=== PATIENT | female | born 1970 | race Caucasian/White ===

== ENCOUNTER → 2017-11-07 | Outpatient (CLI) | payer OTHER ==
--- NOTE | 2017-11-07 14:49 | US ---
EXAMINATION TYPE: US venous doppler duplex LE LT DATE OF EXAM: 11/07/2017 1:55 PM COMPARISON: NONE CLINICAL HISTORY: M25.562 pain in left knee. Pain x 2 weeks, on Aspirin, No redness SIDE PERFORMED: Left TECHNIQUE: The lower extremity deep venous system is examined utilizing real time linear array sonog rui with graded compression, doppler sonography and color-flow sonography. VESSELS IMAGED: External Iliac Vein (EIV) Common Femoral Vein Deep Femoral Vein Greater Saphenous Vein * Femoral Vein Popliteal Vein Small Saphenous Vein * Proximal Calf Veins (* superficial vessels) Suboptimal exam due to patient body habitus Left Leg: Negative for DVT. Posterior left knee, nonvascular cystic appearing lesion seen with inte rnal echoes = 4.7 x 2.6 x 1.9 cm Grayscale, color doppler, spectral doppler imaging performed of the deep veins of the lower extremiti es. There is normal flow, compressibility, vascular waveforms. IMPRESSION: Slightly suboptimal exam secondary to patient body habitus, however there is no gross ev idence of deep venous thrombosis within the left lower extremity. Incidental note of a 4.7 cm slightl y complex popliteal cyst.
== END | disposition home or self-care (01) ==
LOC: RADUSWWP 12:45
PROVIDERS: ATTEND Family Medicine
DX: M25.562 Pain in left knee (principal)

== ENCOUNTER → 2018-03-26 | Outpatient (CLI) | payer OTHER ==
[2018-03-26 14:17] VITALS: BP 136/79; PULSE 95; TEMP 97.8; BMI 130.8
--- NOTE | 2018-03-26 15:18 | P.HPBAR ---
Bariatric H&P - History & Physicial H&P Date: 03/26/18 History & Physicial: Visit/CC: inital clinic visit Patient initial contact: Initial weight: Initial weight in pounds: Height: 5 ft 6.5 in Initial BMI: Last weight: Current weight: 373.1 kg Current weight in pounds: 822.54 Current BMI: 130.8 [place] body weight (based on NIH guidelines): 60.101 kg Excess body weight loss: The patient is a 48 year-old F who presents for Bariatric Assessment. Patient presents today as a new patient evaluation. She has suffered with her weight for the majority of her life. She actually was as heavy as 480. Currently weighs 373. She has lost 111 pounds over the last 14 months. She has done this with lifestyle modification and increased activity. Denies DVT or dysphagia. Patient has a history of diabetes and hypertension hypercholesterolemia and os or arthritis. Hemoglobin A1c recently 7.4. The patient sees Dr. Ervin from endocrinology. Went to the seminar this past Friday. Review of Systems The patient denies any acute changes in vision or hearing, no dysphagia or odynophagia, no chest pain or shortness of breath, no dysuria or hematuria, no headache, no runny nose, no rectal bleeding or melena, no unexplained weight loss Past Medical History Past Medical History: Diabetes Mellitus, Hypertension Additional Past Medical History / Comment(s): frequent uti's, renal insufficiency History of Any Multi-Drug Resistant Organisms: None Reported Past Surgical History: Orthopedic Surgery Additional Past Surgical History / Comment(s): LEFT LEG PLATES AND SCREWS Past Anesthesia/Blood Transfusion Reactions: Motion Sickness Past Psychological History: No Psychological Hx Reported Additional Psychological History / Comment(s): PT HAS 3 SONS LIVING WITH HER, 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 Smoking Status: Former smoker Past Alcohol Use History: None Reported Additional Past Alcohol Use History / Comment(s): started smoking at age 13, quit 27 years, smoked 2 ppd Past Drug Use History: None Reported - Past Family History Father Family Medical History: Cancer, Diabetes Mellitus, Hypertension Additional Family Medical History / Comment(s): colon cancer, smoked and was an alcoholic, brain sx forbenign tumors, and cabg Mother Family Medical History: Cancer, CVA/TIA, Diabetes Mellitus, Hypertension, Liver Disease Additional Family Medical History / Comment(s): heart problems, liver cancer and renal problems Surgical - Exam Vital Signs Temp Pulse BP 97.8 F 95 136/79 03/26/18 14:12 03/26/18 14:12 03/26/18 14:12 Physical exam: General: Well-developed, well-nourished HEENT: Normocephalic, sclerae nonicteric Abdomen: Nontender, nondistended Extremities: No edema Neuro: Alert and oriented Bariatric Assessment & Plan (1) Morbid obesity Narrative/Plan: 48-year-old female with morbid obesity and associated comorbidities. Options discussed in detail with the patient. Surgical risks and benefits of gastric bypass and sleeve gastrectomy reviewed. Patient remains interested in sleeve gastrectomy. The risks of bleeding, infection, stenosis, stricture, leak, abscess, fistula formation, peritonitis, poor weight loss, reflux, vomiting, conversion to an open procedure, aborting sleeve gastrectomy, [place], PE, DVT, and were discussed. The patient understands and wishes to proceed. Status: Acute Bariatric Checklist Checklist: Plan: Checklist: EGD: 1. Hiatal hernia: 2. H. Pylori: HgbA1c: Vitamin D: Smoking: Former smoker Primary care physician referral: dr ferraro Psychiatry clearance: Cardiology clearance: Sleep study: Diet journal: VTE risk score: VTE risk level: Rehab needs at discharge:
== END | disposition home or self-care (01) ==
LOC: BARWHC3 13:43
PROVIDERS: ATTEND Surgery
DX: E66.01 Morbid (severe) obesity due to excess calories (principal); E11.9 Type 2 diabetes mellitus without complications; I10 Essential (primary) hypertension; E78.00 Pure hypercholesterolemia, unspecified; Z98.890 Other specified postprocedural states; Z87.891 Personal history of nicotine dependence; Z68.45 Body mass index [BMI] 70 or greater, adult
CPT/HCPCS: 99211

== ENCOUNTER → 2018-04-06 | Outpatient (CLI) | payer OTHER ==
[2018-04-06 13:18] LABS: Cholesterol 118 mg/dL (<200); HDL Cholesterol 42 mg/dL (40-60); LDL Cholesterol,Calculated 49 mg/dL (0-99); Triglycerides 137 mg/dL (<150)
== END | disposition home or self-care (01) ==
LOC: LABWHC1 12:24
PROVIDERS: ATTEND Internal Medicine
DX: E78.5 Hyperlipidemia, unspecified (principal)
CPT/HCPCS: 36415; 80061

== ENCOUNTER → 2018-04-06 | Outpatient (CLI) | payer OTHER ==
[2018-04-06 08:57] VITALS: BMI 59.7
== END | disposition home or self-care (01) ==
LOC: BARWHC3 08:35
PROVIDERS: ATTEND Surgery
DX: E66.01 Morbid (severe) obesity due to excess calories (principal); Z68.43 Body mass index [BMI] 50.0-59.9, adult
CPT/HCPCS: 97804

== ENCOUNTER → 2018-04-17 | Day surgery (SDC) | payer OTHER ==
[2018-04-15 15:49] VITALS: BMI 60.2
[~2018-04-17] MED LIST: KETAMINE 10 MG/ML 20 ML VIAL ONE; LACTATED RINGERS 1,000 ML IV SCH; LIDOCAINE 1% 20 ML VIAL (10MG/ML) FOR IV START INTRADERMA PRN; LIDOCAINE 1% INJ 10MG/ML (20 ML MDV) ONE; MIDAZOLAM 2 MG/2 ML VIAL ONE; PROPOFOL 10 MG/ML 20 ML VIAL IV ONE; fentaNYL (PF) 50 MCG/ML 2 ML AMP ONE
[2018-04-17 07:09] LABS: Glucose,Whole Blood 146 mg/dL (75-99)
[2018-04-17 07:11] VITALS: TEMP 97.2
--- NOTE | 2018-04-17 07:45 | P.GSHP ---
History of Present Illness H&P Date: 04/17/18 Chief Complaint: GERD Patient today for upper endoscopy. She's been worked up for upcoming bariatric surgery. She has mild reflux at times. Denies dysphagia. He has cardiac testing next week in preparation for sleeve gastrectomy. Past Medical History Past Medical History: Diabetes Mellitus, Hypertension, Osteoarthritis (OA), Renal Disease Additional Past Medical History / Comment(s): frequent uti's, renal insufficiency, Hx of Dialysis, now 80% kidney function History of Any Multi-Drug Resistant Organisms: None Reported Past Surgical History: Orthopedic Surgery Additional Past Surgical History / Comment(s): LEFT LEG PLATES AND SCREWS; Jaw Surgery for TMJ Past Anesthesia/Blood Transfusion Reactions: Motion Sickness Smoking Status: Former smoker - Past Family History Father Family Medical History: Cancer, Diabetes Mellitus, Hypertension Additional Family Medical History / Comment(s): colon cancer, smoked and was an alcoholic, brain sx forbenign tumors, and cabg Mother Family Medical History: Cancer, CVA/TIA, Diabetes Mellitus, Hypertension, Liver Disease Additional Family Medical History / Comment(s): heart problems, liver cancer and renal problems Medications and Allergies Home Medications Medication Instructions Recorded Confirmed Type Ibuprofen [Motrin] 400 - 800 mg PO BID 01/25/15 04/17/18 History Simvastatin [Zocor] 20 mg PO HS #30 tab 01/27/15 04/17/18 Rx metFORMIN HCL [Glucophage] 1,000 mg PO BID 03/26/18 04/17/18 History Aspirin 81 mg PO DAILY 03/27/18 04/17/18 History Glimepiride [Amaryl] 4 mg PO BID 03/27/18 04/17/18 History Hydrochlorothiazide [Hydrodiuril] 25 mg PO DAILY 03/27/18 04/17/18 History Lisinopril [Prinivil] 40 mg PO DAILY 03/27/18 04/17/18 History Multivitamins, Thera [Multivitamin 1 tab PO DAILY 03/27/18 04/17/18 History (formulary)] Pioglitazone [Actos] 15 mg PO HS 03/27/18 04/17/18 History amLODIPine [Norvasc] 10 mg PO DAILY 03/27/18 04/17/18 History Allergies Allergy/AdvReac Type Severity Reaction Status Date / Time No Known Allergies Allergy Verified 04/15/18 15:42 Surgical - Exam Vital Signs Temp Pulse Resp BP Pulse Ox 97.2 F L 84 18 120/66 97 04/17/18 06:52 04/17/18 06:52 04/17/18 06:52 04/17/18 06:52 04/17/18 06:52 Physical exam: General: Well-developed, well-nourished HEENT: Normocephalic, sclerae nonicteric Abdomen: Nontender, nondistended Extremities: No edema Neuro: Alert and oriented Results - Labs Abnormal Lab Results - Last 24 Hours (Table) 04/17/18 Range/Units 07:04 POC Glucose (mg/dL) 146 H (75-99) mg/dL Assessment and Plan (1) GERD (gastroesophageal reflux disease) Narrative/Plan: Will proceed with upper endoscopy at this time Current Visit: Yes Status: Acute Code(s): K21.9 - GASTRO-ESOPHAGEAL REFLUX DISEASE WITHOUT ESOPHAGITIS SNOMED Code(s): 041096926
--- NOTE | 2018-04-17 07:57 | P.PCN ---
Date of Procedure: 04/17/18 Procedure(s) Performed: Preoperative Dx: GERD, presurgical Postoperative Dx: Gastritis with small erosions Procedure: EGD with Bx Anesthesia: Sedation Endoscopist: Dr. Parson Specimens: Antrum Endoscopic Procedure: The patient was on the endoscopy table in the left decubitus position. The Olympus gastroscope was inserted into the oropharynx and passed under direct visualization to the region of the third portion of the duodenum. From that point the scope was slowly withdrawn inspecting all surfaces carefully. There were no neoplastic inflammatory or polypoid lesions throughout the duodenum. The pylorus was widely patent. The stomach was carefully inspected. There was gastritis present with a small erosion in the prepyloric region. A biopsy was taken. The patient also had a small subcutaneous nodule that was soft and fleshy consistent with submucosal lipoma in the antral region. Measured less than 1 cm in size. A biopsy of the antrum took place to rule out H. pylori. Retroflexion revealed a normal hiatus. The esophagus was then carefully examined. There were no neoplastic inflammatory or polypoid lesions throughout the visualized esophagus. The patient was then taken to the recovery room in stable condition per anesthesia guidelines. Recommendations: Await biopsies results begin antiacid therapy.
[2018-04-17 08:10] VITALS: BP 111/60; PULSE 73; RESP 16
== END | disposition home or self-care (01) ==
LOC: ORWHC2ENDO 06:37
PROVIDERS: ATTEND Surgery
DX: K29.50 Unspecified chronic gastritis without bleeding (principal); K21.9 Gastro-esophageal reflux disease without esophagitis; E11.9 Type 2 diabetes mellitus without complications; E78.5 Hyperlipidemia, unspecified; K25.9 Gastric ulcer, unspecified as acute or chronic, without hemorrhage or perforation; I10 Essential (primary) hypertension; M19.90 Unspecified osteoarthritis, unspecified site; Z87.891 Personal history of nicotine dependence; Z82.49 Family history of ischemic heart disease and other diseases of the circulatory system; Z83.3 Family history of diabetes mellitus; Z79.84 Long term (current) use of oral hypoglycemic drugs; Z79.899 Other long term (current) drug therapy; Z79.82 Long term (current) use of aspirin; Z99.2 Dependence on renal dialysis; Z87.440 Personal history of urinary (tract) infections; Z79.1 Long term (current) use of non-steroidal anti-inflammatories (NSAID)
CPT/HCPCS: 81025; 88305; 88342; 43239; J2250; J2001; J3010; J2704

== ENCOUNTER → 2018-04-24 | Outpatient (CLI) | payer OTHER ==
[~2018-04-24] MED LIST changes: -KETAMINE 10 MG/ML 20 ML VIAL ONE; -LACTATED RINGERS 1,000 ML IV SCH; -LIDOCAINE 1% 20 ML VIAL (10MG/ML) FOR IV START INTRADERMA PRN; -LIDOCAINE 1% INJ 10MG/ML (20 ML MDV) ONE; -MIDAZOLAM 2 MG/2 ML VIAL ONE; -PROPOFOL 10 MG/ML 20 ML VIAL IV ONE; +REGADENOSON 0.4 MG/5 ML SYRINGE IV ONE; -fentaNYL (PF) 50 MCG/ML 2 ML AMP ONE
--- NOTE | 2018-04-24 12:17 | ECHOF ---
Referral Reason:Z01.818 Encounter for other preprocedural exam MEASUREMENTS -------- HEIGHT: 170.2 cm WEIGHT: 163.7 kg BP: RVIDd: 3.7 cm (< 3.3) IVSd: 1.3 cm (0.6 - 1.1) LVIDd: 4.6 cm (3.9 - 5.3) LVPWd: 1.3 cm (0.6 - 1.1) IVSs: 1.5 cm LVIDs: 2.9 cm LVPWs: 1.6 cm LAESV Index (A-L): 25.09 ml/m Ao Diam: 3.3 cm (2.0 - 3.7) AV Cusp: 2.3 cm (1.5 - 2.6) LA Diam: 4.1 cm (2.7 - 3.8) MV EXCURSION: 16.958 mm (> 18.000) MV EF SLOPE: 92 mm/s (70 - 150) EPSS: 0.2 cm MV E Emeterio: 0.78 m/s MV DecT: 218 ms MV A Emeterio: 0.69 m/s MV E/A Ratio: 1.12 RAP: 5.00 mmHg RVSP: 16.70 mmHg FINDINGS -------- Sinus rhythm. This was a technically adequate study. Morbid Obesity The left ventricular size is normal. There is mild concentric left ventricular hypertrophy. Overa ll left ventricular systolic function is normal with, an EF between 55 - 60 %. The right ventricle is normal in size. The left atrial size is normal. Normal LA size by volume 22+/-6 ml/m2. The right atrial size is normal. The aortic valve was not well visualized. The mitral valve is normal. Mild mitral regurgitation is present. Mild tricuspid regurgitation present. There is no evidence of pulmonary hypertension. The right v entricular systolic pressure, as measured by Doppler, is 16.70mmHg. The pulmonic valve was not well visualized. There is no pulmonic regurgitation present. The aortic root size is normal. There is no pericardial effusion. CONCLUSIONS -------- 1. Sinus rhythm. 2. This was a technically adequate study. 3. Morbid Obesity 4. The left ventricular size is normal. 5. There is mild concentric left ventricular hypertrophy. 6. Overall left ventricular systolic function is normal with, an EF between 55 - 60 %. 7. The left atrial size is normal. 8. The right atrial size is normal. 9. The aortic valve was not well visualized. 10. The mitral valve is normal. 11. Mild mitral regurgitation is present. 12. Mild tricuspid regurgitation present. 13. There is no evidence of pulmonary hypertension. 14. The pulmonic valve was not well visualized. 15. There is no pulmonic regurgitation present. 16. The aortic root size is normal. 17. There is no pericardial effusion. MASK LAYOUT DESIGNER: Mikala Miramontes RDCS
--- NOTE | 2018-04-24 12:49 | NM ---
EXAMINATION TYPE: NM stress lexiscan cardiolite DATE OF EXAM: 04/24/2018 COMPARISON: NONE HISTORY: Z01.818 TECHNIQUE: After the intravenous administration of 10.56 mCi Tc 99m Sestamibi - Cardiolite resting S PECT images acquired 65 minutes post injection. The patient received 0.4mg Lexiscan, 25.9 mCi Tc 99m Sestamibi - Stress images obtained [address] injection FINDINGS: Review of stress and rest SPECT images demonstrates no distinct perfusion abnormality. Gated analysi s shows normal wall motion with an estimated left ventricular ejection fraction of 69 %. IMPRESSION: No scintigraphic evidence for reversible ischemia. Consider echocardiographic correlation for elevate d ejection fraction.
--- NOTE | 2018-04-24 15:35 | EST ---
EXERCISE STRESS DATE OF SERVICE: 04/24/2018 AGE: 48 SEX: Female HT: 5'8" WT: 361 PROTOCOL: Lexiscan Cardiolite STAGE: DURATION OF EXERCISE: HEART RATE REST: 66 BLOOD PRESSURE REST: 146/77 MAXIMUM HEART RATE ACHIEVED: 91 MAXIMUM BLOOD PRESSURE: 181/73 85% MPHR: 145 100% MPHR: 170 METS: INDICATIONS: Abnormal EKG. CLINICAL INFORMATION: Baseline rhythm is sinus mechanism, rate 66, normal axis and intervals, normal electrocardiogram. Baseline blood pressure 146/77 mmHg. Patient received an injection of Lexiscan. Electrocardiographic monitoring revealed rare PVCs. There was no evidence of diagnostic ischemic ST deviation. Cardiolite was injected per protocol. CONCLUSION: 1. Nondiagnostic electrocardiograph stress testing. 2. Nuclear images will be reported separately. MMODL / IJN: [id number] /
== END | disposition home or self-care (01) ==
LOC: RADNMMAIN 07:35
PROVIDERS: ATTEND Family Medicine
DX: Z01.818 Encounter for other preprocedural examination (principal); I08.1 Rheumatic disorders of both mitral and tricuspid valves; E66.01 Morbid (severe) obesity due to excess calories; J30.2 Other seasonal allergic rhinitis; Z88.8 Allergy status to other drugs, medicaments and biological substances
CPT/HCPCS: 93017; 93306; 78452; A9500; J2785

== ENCOUNTER → 2018-05-14 | Outpatient (CLI) | payer OTHER ==
[2018-05-14 15:12] VITALS: BP 121/70; PULSE 89; RESP 20; TEMP 97.9; BMI 59.1
--- NOTE | 2018-05-14 16:45 | P.BASOAP ---
Subjective Progress Note Date: 05/14/18 Principal diagnosis: Morbid obesity Patient returns after recent upper endoscopy. Upper endoscopy revealed gastritis with small erosions. Doing well at this time. Remains interested in proceeding with sleeve gastrectomy. Objective - Vital Signs Vital signs: Vital Signs Temp 97.9 F 05/14/18 15:01 Pulse 89 05/14/18 15:01 Resp 20 05/14/18 15:01 BP 121/70 05/14/18 15:01 Pulse Ox Intake & Output 05/13/18 05/14/18 05/14/18 18:59 06:59 18:59 Weight 168.827 kg - Exam Abdomen: Soft, nontender, nondistended Assessment/Plan (1) Morbid obesity Narrative/Plan: Will proceed with sleeve gastrectomy. Continue antiacids for now. The risks of bleeding, infection, stenosis, stricture, leak, abscess, fistula formation, peritonitis, poor weight loss, reflux, vomiting, conversion to an open procedure , aborting sleeve gastrectomy, [place], PE, DVT, and were discussed. The patient understands and wishes to proceed. Plan: Date: 05/14/18 Initial Weight: 169.598 kg Initial BMI: 59.4 Current Weight: 168.827 kg Current BMI: 59.1 Type of Surgery: Vertical Sleeve Gastrectomy Total Volume in Band: Previous Volume: Volume Removed: Volume Added: Band Size:
== END | disposition home or self-care (01) ==
LOC: BARWHC3 14:46
PROVIDERS: ATTEND Surgery
DX: E66.01 Morbid (severe) obesity due to excess calories (principal); K29.00 Acute gastritis without bleeding; Z68.43 Body mass index [BMI] 50.0-59.9, adult
CPT/HCPCS: 99211

== ENCOUNTER → 2018-05-14 | Outpatient (CLI) | payer OTHER ==
[2018-05-15 04:24] LABS: Hemoglobin A1C 6.6 % (4.0-6.0)
== END ==
LOC: LABWHC1 16:01
PROVIDERS: ATTEND Internal Medicine Endocrinology, Diabetes & Metabolism
DX: E11.65 Type 2 diabetes mellitus with hyperglycemia (principal)
CPT/HCPCS: 36415; 82043; 82570; 83036

== ENCOUNTER → 2018-06-17 | Outpatient (CLI) | payer OTHER ==
[2018-06-17 13:24] LABS: ALT 37 U/L (9-52); AST 26 U/L (14-36); Albumin 4.1 g/dL (3.5-5.0); Alkaline Phosphatase 62 U/L (38-126); Anion Gap 13 mmol/L; Blood Urea Nitrogen 21 mg/dL (7-17); Calcium 10.3 mg/dL (8.4-10.2); Carbon Dioxide 29 mmol/L (22-30); Chloride 101 mmol/L (98-107); Glucose 148 mg/dL (74-99); Sodium 143 mmol/L (137-145); Total Bilirubin 0.5 mg/dL (0.2-1.3); Total Protein 7.5 g/dL (6.3-8.2)
[2018-06-17 13:35] LABS: Basophils % (A) 0 %; Eosinophils # (A) 0.2 k/uL (0-0.7); Eosinophils % (A) 3 %; HCT 39.3 % (34.0-46.0); HGB 12.4 gm/dL (11.4-16.0); Lymphocytes # (A) 2.2 k/uL (1.0-4.8); Lymphocytes % (A) 30 %; MCH 28.8 pg (25.0-35.0); MCHC 31.6 g/dL (31.0-37.0); MCV 91.2 fL (80.0-100.0); Mean Platelet Volume 6.6; Monocytes # (A) 0.4 k/uL (0-1.0); Monocytes % (A) 5 %; Neutrophils # (A) 4.2 k/uL (1.3-7.7); Neutrophils % (A) 59 %; Platelet Count 393 k/uL (150-450); RBC 4.31 m/uL (3.80-5.40); RDW 13.9 % (11.5-15.5); WBC 7.2 k/uL (3.8-10.6)
== END | disposition home or self-care (01) ==
LOC: LABPAT 11:30
PROVIDERS: ATTEND Surgery
DX: Z01.818 Encounter for other preprocedural examination (principal); Z01.812 Encounter for preprocedural laboratory examination
CPT/HCPCS: 36415; 80053; 85025; 93005

== ENCOUNTER 2018-07-06 09:51 | Inpatient (IN) | payer OTHER ==
[~2018-07-06 09:51] MED LIST changes: +DEXAMETHASONE SOD PHOSPHATE 10 MG/ML 1 ML VIAL IV ONE; +ENOXAPARIN 40 MG/0.4 ML SYRINGE SQ ONE; +LIDOCAINE 1% 20 ML VIAL (10MG/ML) FOR IV START INTRADERMA PRN; +ONDANSETRON 4 MG/2 ML VIAL IVP ONE; -REGADENOSON 0.4 MG/5 ML SYRINGE IV ONE; +SCOPOLAMINE 1.5MG/72HR PATCH TRANSDERM ONE
[2018-07-06] MEDS ORDERED: LACTATED RINGERS 1,000 ML IV ONE ×2 (10:32→13:07)
[2018-07-06 10:33] LABS: Glucose,Whole Blood 149 mg/dL (75-99)
--- NOTE | 2018-07-06 10:53 | P.GSHP ---
History of Present Illness H&P Date: 07/06/18 Chief Complaint: Morbid obesity Patient presents today for elective sleeve gastrectomy. Patient first seen in March of this year. The patient has done quite well on her own losing approximately 140 pounds with diet and exercise. She is interested in sleeve gastrectomy. She has investigated the gastric bypass and lap band as well and believes the sleeve gastrectomy is more appropriate for her. Patient suffers from diabetes and hypertension hypercholesterolemia and osteoarthritis. Denies history of DVT or dysphagia. Recent upper endoscopy showed gastritis with small erosions. - Review of Systems Comment: The patient denies any acute changes in vision or hearing, no dysphagia or odynophagia, no chest pain or shortness of breath, no dysuria or hematuria, no headache, no runny nose, no rectal bleeding or melena, no unexplained weight loss Past Medical History Past Medical History: Diabetes Mellitus, GERD/Reflux, Hypertension Additional Past Medical History / Comment(s): frequent uti's, renal insufficiency History of Any Multi-Drug Resistant Organisms: None Reported Past Surgical History: Orthopedic Surgery Additional Past Surgical History / Comment(s): LEFT LEG PLATES AND SCREWS (3 surgeries total) Past Anesthesia/Blood Transfusion Reactions: Motion Sickness Additional Past Anesthesia/Blood Transfusion Reaction / Comment(s): No transfusion to date Smoking Status: Former smoker - Past Family History Father Family Medical History: Cancer, Diabetes Mellitus, Hypertension Additional Family Medical History / Comment(s): colon cancer, smoked and was an alcoholic, brain sx for benign tumors, and cabg Mother Family Medical History: Cancer, CVA/TIA, Diabetes Mellitus, Hypertension, Liver Disease Additional Family Medical History / Comment(s): heart problems, liver cancer and renal problems. grandmother cva x5, heart disease Medications and Allergies Home Medications Medication Instructions Recorded Confirmed Type Ibuprofen [Motrin] 400 - 800 mg PO TID 01/25/15 06/18/18 History Simvastatin [Zocor] 20 mg PO HS #30 tab 01/27/15 06/18/18 Rx metFORMIN HCL [Glucophage] 1,000 mg PO BID 03/26/18 06/18/18 History Aspirin 81 mg PO DAILY 03/27/18 06/18/18 History Glimepiride [Amaryl] 2 mg PO BID 03/27/18 06/18/18 History Hydrochlorothiazide [Hydrodiuril] 25 mg PO DAILY 03/27/18 06/18/18 History Lisinopril [Prinivil] 40 mg PO DAILY 03/27/18 06/18/18 History Multivitamins, Thera [Multivitamin 1 tab PO DAILY 03/27/18 06/18/18 History (formulary)] Pioglitazone [Actos] 15 mg PO HS 03/27/18 06/18/18 History amLODIPine [Norvasc] 10 mg PO DAILY 03/27/18 06/18/18 History Omeprazole [PriLOSEC] 20 mg PO AC-BRKFST #90 cap 04/17/18 06/18/18 Rx Alogliptin Benzoate [Alogliptin] 25 mg PO HS 05/14/18 06/18/18 History Allergies Allergy/AdvReac Type Severity Reaction Status Date / Time chicken derived [Chicken] Allergy Rash/Hives Verified 06/18/18 14:43 egg Allergy Rash/Hives Verified 06/18/18 14:43 Influenza Virus Vaccines Allergy Rash/Hives Verified 06/18/18 14:43 pneumococcal vaccine Allergy Rash/Hives Verified 06/18/18 14:43 Surgical - Exam Vital Signs Temp Pulse Resp BP Pulse Ox 98.1 F 113 H 20 180/89 97 07/06/18 10:23 07/06/18 10:23 07/06/18 10:23 07/06/18 10:23 07/06/18 10:23 Physical exam: General: Well-developed, well-nourished HEENT: Normocephalic, sclerae nonicteric Abdomen: Nontender, nondistended Extremities: No edema Neuro: Alert and oriented Results - Labs Abnormal Lab Results - Last 24 Hours (Table) 07/06/18 Range/Units 10:31 POC Glucose (mg/dL) 149 H (75-99) mg/dL Assessment and Plan (1) Morbid obesity Narrative/Plan: Will proceed with sleeve gastrectomy at this time. The risks of bleeding, infection, stenosis, stricture, leak, abscess, fistula formation, peritonitis, poor weight loss, reflux, vomiting, conversion to an open procedure, aborting sleeve gastrectomy, [place], PE, DVT, and were discussed. The patient understands and wishes to proceed. Current Visit: No Status: Acute Code(s): E66.01 - MORBID (SEVERE) OBESITY DUE TO EXCESS CALORIES SNOMED Code(s): 323330395
[2018-07-06] MEDS ORDERED: BUPIVACAIN-EPI 0.25%-1:200,000 30 ML VIAL SQ ONE ×3 (12:25→14:32)
[2018-07-06] MEDS ORDERED: PROPOFOL 10 MG/ML 20 ML VIAL IV ONE (12:37)
[2018-07-06] MEDS ORDERED: ePHEDrine SULFATE/0.9% NACL/PF 50 MG/5 ML SYRINGE IV ONE (12:37)
[2018-07-06] MEDS ORDERED: NEOSTIGMINE 1 MG/ML 10 ML VIAL ONE (12:37)
[2018-07-06] MEDS ORDERED: GLYCOPYRROLATE 0.2 MG/ML 2 ML VIAL ONE (12:37)
[2018-07-06] MEDS ORDERED: MIDAZOLAM 2 MG/2 ML VIAL ONE (12:37)
[2018-07-06] MEDS ORDERED: ROCURONIUM BROMIDE 10 MG/ML 10 ML VIAL IV ONE (12:37)
[2018-07-06] MEDS ORDERED: SUCCINYLCHOLINE CHLORIDE VIAL 200 MG/10 ML VIAL IV ONE (12:37)
[2018-07-06] MEDS ORDERED: fentaNYL (PF) 50 MCG/ML 2 ML AMP ONE (12:37)
[2018-07-06] MEDS ORDERED: LIDOCAINE 1% INJ 10MG/ML (20 ML MDV) ONE (12:37)
[2018-07-06] MEDS ORDERED: NALOXONE 0.4 MG/ML 1 ML VIAL IV PRN (14:40)
[2018-07-06] MEDS ORDERED: ACETAMINOPHEN IV (For NPO) 1,000 MG in EMPTY BAG 1 BAG IVPB ONE (14:40)
[2018-07-06] MEDS ORDERED: HYOSCYAMINE ORAL DROPS 1.875 MG/15 ML BOTTLE PO PRN (14:40)
[2018-07-06] MEDS ORDERED: diphenhydrAMINE 50 MG/ML 1 ML VIAL IVP PRN (14:40)
[2018-07-06] MEDS ORDERED: SIMETHICONE 40 MG/0.6 ML DROPS 2,000 MG/30 ML BOTTLE PO PRN (14:40)
--- NOTE | 2018-07-06 14:45 | P.OP ---
Date of Procedure: 07/06/18 Procedure(s) Performed: PREOPERATIVE DIAGNOSIS: Morbid obesity, diabetes, hypertension, hypercholesterolemia, arthritis POSTOPERATIVE DIAGNOSIS: Same PROCEDURE: Laparoscopic sleeve gastrectomy SURGEON: Eb MUÑIZL: Minimal ANESTHESIA: General COMPLICATIONS: None OPERATIVE PROCEDURE: Patient was placed in the operating table in the supine position. She was placed under general anesthesia at that time. The abdomen was prepped and draped in sterile fashion after the patient was placed in lithotomy. A 5 mm optical trocar was used to enter the abdominal cavity in the left upper quadrant. Insufflation took place to 15 millimeters mercury. An additional right subxiphoid 5 mm trocar was then placed under direct visualization and then removed. 2 additional 5 mm trochars were placed in the right upper quadrant and left upper quadrant under direct visualization and a 15 mm trocar in the supraumbilical location. The liver was retracted using a medium Irma liver retractor through the right subxiphoid trocar site. The liver was somewhat floppy but able to be retracted nicely. The hiatus was inspected. The patient had no visible hiatal hernia At that point I moved to the mid aspect of the greater curvature the stomach. The short gastric vasculature was divided using a LigaSure device proximally. I then switched and divided the short gastrics distally to a 3-4 cm from the pylorus. The dissection took place up to the left diaphragmatic crura at that point. The posterior short gastrics were likewise divided using the LigaSure device. Once the stomach was fully mobilized the blunt tipped 40-Japanese bougie dilator was advanced into the stomach and advanced all the way to the prepyloric location. A black echelon 60 stapler was utilized and fired tangentially across the antrum taking care to avoid narrowing at the incisura angularis. Subsequent firings of the stapler took place. A total of 5 green echelon 60 staplers with seam guard took place proximally staying on the outer edge of our dilator. Once we reached the most proximal portion of the stomach a single firing of the gold echelon 60 stapler without seen guard took place. The oral gastric tube was reinserted. The stomach was insufflated with approximately 100 mL of methylene blue. No evidence of leak or obstruction was seen. The distal aspect of the sleeve was then reapproximated to the gastrosplenic and gastrocolic ligament using a short running 2-0 strata fix suture. This was done to prevent kinking or twisting of the sleeve. Tisseel fibrin glue was used along the length of the staple line. The stomach remnant was removed from the 15 mm trocar site without difficulty. The fascia at the 15 more site was closed using interrupted 0 Vicryl sutures with the laparoscopic suture passer and Nathan Shira technique. The insufflation was evacuated. The skin at all 5 incisions were closed using 4-0 Monocryl sutures. Skin glue was then applied. DISPOSITION: Stable to recovery room
[2018-07-06] MEDS: HYDROmorphone 1 MG/ML 1 ML SYRINGE IVP PRN ×4 (15:03→21:04)
[2018-07-06 15:08] LABS: Glucose,Whole Blood 245 mg/dL (75-99)
[2018-07-06] MEDS ORDERED: INSULIN ASPART 100 UNIT/ML 1 ML 10 ML VIAL SQ ONE (15:10)
[2018-07-06 16:06] VITALS: BMI 56.9
[2018-07-06] MEDS: LACTATED RINGERS 1,000 ML IV SCH (16:19)
[2018-07-06] MEDS: ALBUTEROL NEBULIZED 2.5 MG/3 ML INHALATION SCH ×2 (17:15→20:43)
[2018-07-06] MEDS: 0.9% NACL WITH KCL 20 MEQ/L 1,000 ML IV SCH ×2 (17:42→23:04)
[2018-07-06 20:53] LABS: Glucose,Whole Blood 274 mg/dL (75-99)
[2018-07-06] MEDS: INSULIN ASPART 100 UNIT/ML 1 ML 10 ML VIAL SQ SCH (21:03)
[2018-07-07] MEDS: ONDANSETRON 4 MG/2 ML VIAL IVP PRN ×2 (02:20→09:12)
[2018-07-07] MEDS: HYDROmorphone 1 MG/ML 1 ML SYRINGE IVP PRN ×3 (02:24→11:32)
[2018-07-07] MEDS: 0.9% NACL WITH KCL 20 MEQ/L 1,000 ML IV SCH ×2 (04:47→12:40)
[2018-07-07] MEDS: LACTATED RINGERS 1,000 ML IV SCH (05:34)
[2018-07-07 06:05] LABS: Glucose,Whole Blood 180 mg/dL (75-99)
[2018-07-07 07:02] LABS: Glucose,Whole Blood 148 mg/dL (75-99)
[2018-07-07 07:34] LABS: Basophils % (A) 0 %; Eosinophils # (A) 0.1 k/uL (0-0.7); Eosinophils % (A) 1 %; HCT 35.7 % (34.0-46.0); HGB 11.7 gm/dL (11.4-16.0); Lymphocytes # (A) 1.3 k/uL (1.0-4.8); Lymphocytes % (A) 10 %; MCH 29.9 pg (25.0-35.0); MCHC 32.8 g/dL (31.0-37.0); MCV 90.9 fL (80.0-100.0); Mean Platelet Volume 6.7; Monocytes # (A) 0.9 k/uL (0-1.0); Monocytes % (A) 6 %; Neutrophils # (A) 11.1 k/uL (1.3-7.7); Neutrophils % (A) 82 %; Platelet Count 323 k/uL (150-450); RBC 3.92 m/uL (3.80-5.40); RDW 14.2 % (11.5-15.5); WBC 13.5 k/uL (3.8-10.6)
[2018-07-07] MEDS: INSULIN ASPART 100 UNIT/ML 1 ML 10 ML VIAL SQ SCH ×4 (07:45→20:55)
[2018-07-07 07:46] LABS: Anion Gap 12 mmol/L; Blood Urea Nitrogen 14 mg/dL (7-17); Carbon Dioxide 24 mmol/L (22-30); Chloride 103 mmol/L (98-107); Magnesium 1.4 mg/dL (1.6-2.3); Phosphorus 3.8 mg/dL (2.5-4.5); Sodium 139 mmol/L (137-145)
[2018-07-07] MEDS: PANTOPRAZOLE 40 MG/10 ML VIAL IV SCH (07:49)
[2018-07-07] MEDS: ENOXAPARIN 40 MG/0.4 ML SYRINGE SQ SCH ×2 (07:49→20:55)
[2018-07-07] MEDS: ALBUTEROL NEBULIZED 2.5 MG/3 ML INHALATION SCH ×4 (08:27→20:16)
--- NOTE | 2018-07-07 10:20 | FL ---
EXAMINATION TYPE: FL UGI DATE OF EXAM: 07/07/2018 COMPARISON: None HISTORY: Gastric sleeve TECHNIQUE: A single contrast UGI study is performed. Exam is limited due to patient's physical condi tion being unable to stand long and limited mobility. Patient nausea also prevented significant contr ast administration. FINDINGS: Contrast passes from the distal esophagus through the gastric sleeve with mild hesitancy. N o extravasation of contrast is evident. No free air is noted during this examination. Overhead radiograph was obtained which is unremarkable. Fluoroscopy time 20 seconds. Images: 7 [id number] IMPRESSIONS: 1. Normal post gastric sleeve with mild hesitancy. No extravasation. Exam somewhat limited.
--- NOTE | 2018-07-07 10:36 | P.CONS ---
History of Present Illness - Reason for Consult Recommendations regarding hypertensive and diabetic medications - History of Present Illness 48-year-old pleasant female admitted for elective to sleeve gastrectomy. underwent surgery yesterday clinically doing well but does still quite a bit nauseous patient underwent the upper GI series for that. Patient is a bit of distress because of her nausea. Patient is diabetic is on multiple oral hypertensive medications which are being held at this time and patient is on sliding scale as patient is not eating normally. Patient has history of hypertension is on multiple medications including amlodipine, lisinopril and hydrochlorothiazide and hydrochlorothiazide is being held to prevent perioperative hypotension and patient is also receiving IV fluids. Patient did pass gas did not move her bowel yet. No surgical drains in place. Review of Systems REVIEW OF SYSTEMS: CONSTITUTIONAL: No fever, no malaise, no fatigue. HEENT: No recent visual problems or hearing problems. Denied any sore throat. CARDIOVASCULAR: No chest pain, orthopnea, PND, no palpitations, no syncope. PULMONARY: No shortness of breath, no cough, no hemoptysis. GASTROINTESTINAL: As mentioned in HPI NEUROLOGICAL: No headaches, no weakness, no numbness. HEMATOLOGICAL: Denies any bleeding or petechiae. GENITOURINARY: Denies any burning micturition, frequency, or urgency. MUSCULOSKELETAL/RHEUMATOLOGICAL: Denies any joint pain, swelling, or any muscle pain. ENDOCRINE: Denies any polyuria or polydipsia. The rest of the 14-point review of systems is negative. Past Medical History Past Medical History: Diabetes Mellitus, GERD/Reflux, Hypertension Additional Past Medical History / Comment(s): frequent uti's, renal insufficiency, uses wheel chair History of Any Multi-Drug Resistant Organisms: None Reported Past Surgical History: Orthopedic Surgery Additional Past Surgical History / Comment(s): LEFT LEG PLATES AND SCREWS (3 surgeries total), lap gastric sleeve Past Anesthesia/Blood Transfusion Reactions: Motion Sickness Additional Past Anesthesia/Blood Transfusion Reaction / Comm: No transfusion to date Past Psychological History: No Psychological Hx Reported Additional Psychological History / Comment(s): PT HAS 3 SONS LIVING WITH HER, 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 Smoking Status: Former smoker Past Alcohol Use History: None Reported Additional Past Alcohol Use History / Comment(s): started smoking at age 13, quit 27 years, smoked 2 ppd Past Drug Use History: None Reported - Past Family History Father Family Medical History: Cancer, Diabetes Mellitus, Hypertension Additional Family Medical History / Comment(s): colon cancer, smoked and was an alcoholic, brain sx for benign tumors, and cabg Mother Family Medical History: Cancer, CVA/TIA, Diabetes Mellitus, Hypertension, Liver Disease Additional Family Medical History / Comment(s): heart problems, liver cancer and renal problems. grandmother cva x5, heart disease Medications and Allergies Home Medications Medication Instructions Recorded Confirmed Type Ibuprofen [Motrin] 400 - 800 mg PO TID 01/25/15 07/06/18 History Simvastatin [Zocor] 20 mg PO HS #30 tab 01/27/15 07/06/18 Rx metFORMIN HCL [Glucophage] 1,000 mg PO BID 03/26/18 07/06/18 History Aspirin 81 mg PO DAILY 03/27/18 07/06/18 History Glimepiride [Amaryl] 2 mg PO BID 03/27/18 07/06/18 History Hydrochlorothiazide [Hydrodiuril] 25 mg PO DAILY 03/27/18 07/06/18 History Lisinopril [Prinivil] 40 mg PO DAILY 03/27/18 07/06/18 History Multivitamins, Thera [Multivitamin 1 tab PO DAILY 03/27/18 07/06/18 History (formulary)] Pioglitazone [Actos] 15 mg PO HS 03/27/18 07/06/18 History amLODIPine [Norvasc] 10 mg PO DAILY 03/27/18 07/06/18 History Omeprazole [PriLOSEC] 20 mg PO AC-BRKFST #90 cap 04/17/18 07/06/18 Rx Alogliptin Benzoate [Alogliptin] 25 mg PO HS 05/14/18 07/06/18 History Bisacodyl [Dulcolax] 5 mg PO DAILY PRN #10 tablet. 07/06/18 Rx Hydrocodone/Acetaminophen [[place] 1 - 2 each PO Q4HR PRN #10 tab 07/06/18 Rx 5-325] Omeprazole [PriLOSEC] 20 mg PO AC-BRKFST #90 cap 07/06/18 Rx Ondansetron Odt [Zofran Odt] 4 mg PO Q8HR PRN #9 tab 07/06/18 Rx Simethicone 40 mg/0.6 ml Drops 40 mg PO PCHS PRN #30 ml 07/06/18 Rx [Mylicon Drops] Allergies Allergy/AdvReac Type Severity Reaction Status Date / Time chicken derived [Chicken] Allergy Rash/Hives Verified 07/06/18 16:07 egg Allergy Rash/Hives Verified 07/06/18 16:07 Influenza Virus Vaccines Allergy Rash/Hives Verified 07/06/18 16:07 pneumococcal vaccine Allergy Rash/Hives Verified 07/06/18 16:07 Physical Exam Vitals: Vital Signs Temp Pulse Pulse Resp BP Pulse Ox 07/07/18 08:25 98 07/07/18 07:35 90 18 07/07/18 07:00 97.8 F 90 18 155/87 99 07/07/18 00:35 88 L 07/07/18 00:26 95 07/06/18 23:57 97.6 F 105 H 159/74 97 07/06/18 20:55 102 H 16 07/06/18 20:44 107 H 16 96 07/06/18 20:43 97.8 F 100 151/92 94 L 07/06/18 17:24 107 H 16 07/06/18 17:16 107 H 14 95 07/06/18 15:33 97 18 152/68 93 L 07/06/18 15:19 95 18 151/68 94 L 07/06/18 15:04 95 18 157/69 96 07/06/18 14:49 99.2 F 112 H 26 H 191/81 96 Intake and Output 07/06/18 07/07/18 07/07/18 22:59 06:59 14:59 Intake Total 150 1200 Balance 150 1200 Intake: IV 150 Intake, IV Titration 1200 Amount 0.9% NaCl with KCl 20 Meq 1200 /l 1,000 ml @ 150 mls/hr IV .[facility]H40M [facility] Rx#: [id number] Other: # Voids 1 1 Weight 159.891 kg PHYSICAL EXAMINATION: GENERAL: The patient is alert and oriented x3, not in any acute distress. Morbidly obese HEENT: Pupils are round and equally reacting to light. EOMI. No scleral icterus. No conjunctival pallor. Normocephalic, atraumatic. No pharyngeal erythema. No thyromegaly. CARDIOVASCULAR: S1 and S2 present. No murmurs, rubs, or gallops. PULMONARY: Chest is clear to auscultation, no wheezing or crackles. ABDOMEN: Soft, surgical site areas doesn't appear to be infected does have bowel sounds MUSCULOSKELETAL: No joint swelling or deformity. EXTREMITIES: No cyanosis, clubbing, or pedal edema. NEUROLOGICAL: Gross neurological examination did not reveal any focal deficits. SKIN: No rashes. Results CBC & Chem 7: 07/07/18 06:52 07/07/18 06:52 Labs: Abnormal Lab Results - Last 24 Hours (Table) 07/06/18 07/06/18 07/06/18 Range/Units 10:31 15:03 20:42 WBC (3.8-10.6) k/uL Neutrophils # (1.3-7.7) k/uL POC Glucose (mg/dL) 149 H 245 H 274 H (75-99) mg/dL Magnesium (1.6-2.3) mg/dL 07/07/18 07/07/18 07/07/18 Range/Units 05:53 06:51 06:52 WBC 13.5 H (3.8-10.6) k/uL Neutrophils # 11.1 H (1.3-7.7) k/uL POC Glucose (mg/dL) 180 H 148 H (75-99) mg/dL Magnesium (1.6-2.3) mg/dL 07/07/18 Range/Units 06:52 WBC (3.8-10.6) k/uL Neutrophils # (1.3-7.7) k/uL POC Glucose (mg/dL) (75-99) mg/dL Magnesium 1.4 L (1.6-2.3) mg/dL Assessment and Plan Plan: -Hypertension: Management as mentioned above patient will be resumed on low- dose of AROLDO inhibitor amlodipine and hydrochlorothiazide will be held to prevent perioperative hypotension continue with IV fluids -Type 2 diabetes mellitus to prevent hypoglycemia patient will be started on sliding scale insulin hold off on oral hypoglycemic agents Gastroesophageal reflux disease: Patient is on simethicone and Protonix -Morbid obesity: Patient is status post sleeve gastrectomy -Mild tachycardia expected postoperative. Improved now can be secondary to hyoscyamine better now no further intervention at this time
[2018-07-07] MEDS ORDERED: METOCLOPRAMIDE 5 MG/ML 2 ML VIAL IVP PRN (11:17)
[2018-07-07] MEDS ORDERED: Magnesium Replacement Protocol 1 EACH MISC MISCELLANE PRN (11:43)
[2018-07-07 11:48] LABS: Glucose,Whole Blood 160 mg/dL (75-99)
[2018-07-07] MEDS ORDERED: METOCLOPRAMIDE 5 MG/ML 2 ML VIAL IVP SCH (12:00)
[2018-07-07] MEDS: 1: MVI, ADULT NO.4 WITH VIT K 10 ML, THIAMINE 100 MG, FOLIC ACID 1 MG, POTASSIUM CHLORID IV SCH ×12 (12:38→23:12)
[2018-07-07] MEDS: MAGNESIUM SULFATE-D5W PMX 1 GM in DEXTROSE/WATER 1 100ML.BAG IVPB SCH ×3 (12:41→15:37)
--- NOTE | 2018-07-07 12:48 | P.PN ---
Subjective Progress Note Date: 07/07/18 Principal diagnosis: Morbid obesity Patient doing fairly well this morning. Her pain is mild. She is having episodes of dry heaves with nausea. White blood cell count slightly elevated. Upper GI shows no evidence of leak or obstruction. She is ambulating in the room. Objective - Vital Signs Vital signs: Vital Signs Temp 97.8 F 07/07/18 07:00 Pulse 90 07/07/18 07:35 Resp 18 07/07/18 07:35 BP 155/87 07/07/18 07:00 Pulse Ox 98 07/07/18 08:25 Intake & Output 07/06/18 07/07/18 07/07/18 18:59 06:59 18:59 Intake Total 1700 1200 Output Total 20 Balance 1680 1200 Weight 159.891 kg 159.891 kg Intake: IV 1700 Intake, IV Titration 1200 Amount 0.9% NaCl with KCl 20 Meq 1200 /l 1,000 ml @ 150 mls/hr IV .Q6H40M [facility] Rx#: [id number] Output: Estimated Blood Loss 20 Other: # Voids 1 - Exam Abdomen: Soft, mild incisional tenderness, incisions clean and dry - Labs CBC & Chem 7: 07/07/18 06:52 07/07/18 06:52 Labs: Abnormal Lab Results - Last 24 Hours (Table) 07/06/18 07/06/18 07/07/18 Range/Units 15:03 20:42 05:53 WBC (3.8-10.6) k/uL Neutrophils # (1.3-7.7) k/uL POC Glucose (mg/dL) 245 H 274 H 180 H (75-99) mg/dL Magnesium (1.6-2.3) mg/dL 07/07/18 07/07/18 07/07/18 Range/Units 06:51 06:52 06:52 WBC 13.5 H (3.8-10.6) k/uL Neutrophils # 11.1 H (1.3-7.7) k/uL POC Glucose (mg/dL) 148 H (75-99) mg/dL Magnesium 1.4 L (1.6-2.3) mg/dL 07/07/18 Range/Units 11:37 WBC (3.8-10.6) k/uL Neutrophils # (1.3-7.7) k/uL POC Glucose (mg/dL) 160 H (75-99) mg/dL Magnesium (1.6-2.3) mg/dL Assessment and Plan (1) Morbid obesity Narrative/Plan: Start Bariatric liquid diet. Minimize narcotic use. Add Toradol for pain control. Ambulate. Current Visit: Yes Status: Acute Code(s): E66.01 - MORBID (SEVERE) OBESITY DUE TO EXCESS CALORIES SNOMED Code(s): 925653646
[2018-07-07 12:58] LABS: Hemoglobin A1C 6.8 % (4.0-6.0)
[2018-07-07] MEDS: amLODIPine 10 MG TAB PO SCH (13:37)
[2018-07-07] MEDS: KETOROLAC 30 MG/ML 1 ML VIAL IVP SCH ×2 (17:09→23:11)
[2018-07-07 17:18] LABS: Glucose,Whole Blood 184 mg/dL (75-99)
[2018-07-07 20:03] LABS: Glucose,Whole Blood 177 mg/dL (75-99)
[2018-07-07] MEDS ORDERED: ATORVASTATIN 10 MG TAB PO SCH (21:00)
[2018-07-08] MEDS: KETOROLAC 30 MG/ML 1 ML VIAL IVP SCH ×2 (06:29→11:00)
[2018-07-08 07:13] LABS: Glucose,Whole Blood 218 mg/dL (75-99)
[2018-07-08 07:19] VITALS: BP 158/85; RESP 16; TEMP 98
[2018-07-08] MEDS: amLODIPine 10 MG TAB PO SCH (07:24)
[2018-07-08] MEDS: PANTOPRAZOLE 40 MG/10 ML VIAL IV SCH (07:25)
[2018-07-08] MEDS: ENOXAPARIN 40 MG/0.4 ML SYRINGE SQ SCH (07:26)
[2018-07-08] MEDS: INSULIN ASPART 100 UNIT/ML 1 ML 10 ML VIAL SQ SCH (07:27)
[2018-07-08] MEDS: 1: MVI, ADULT NO.4 WITH VIT K 10 ML, THIAMINE 100 MG, FOLIC ACID 1 MG, POTASSIUM CHLORID IV SCH ×6 (07:31)
[2018-07-08] MEDS: LACTATED RINGERS 1,000 ML IV SCH (07:31)
[2018-07-08] MEDS ORDERED: BISACODYL 5 MG TABLET.DR PO PRN (08:00)
[2018-07-08 08:06] LABS: Basophils % (A) 0 %; Eosinophils # (A) 0.1 k/uL (0-0.7); Eosinophils % (A) 1 %; HCT 34.9 % (34.0-46.0); HGB 11.8 gm/dL (11.4-16.0); Lymphocytes # (A) 1.5 k/uL (1.0-4.8); Lymphocytes % (A) 17 %; MCH 30.4 pg (25.0-35.0); MCHC 33.8 g/dL (31.0-37.0); MCV 89.8 fL (80.0-100.0); Mean Platelet Volume 6.8; Monocytes # (A) 0.6 k/uL (0-1.0); Monocytes % (A) 6 %; Neutrophils # (A) 6.5 k/uL (1.3-7.7); Neutrophils % (A) 74 %; Platelet Count 299 k/uL (150-450); RBC 3.89 m/uL (3.80-5.40); RDW 14.3 % (11.5-15.5); WBC 8.9 k/uL (3.8-10.6)
[2018-07-08 08:14] LABS: Anion Gap 8 mmol/L; Blood Urea Nitrogen 9 mg/dL (7-17); Calcium 8.9 mg/dL (8.4-10.2); Carbon Dioxide 25 mmol/L (22-30); Chloride 105 mmol/L (98-107); Glucose 164 mg/dL (74-99); Magnesium 1.9 mg/dL (1.6-2.3); Sodium 138 mmol/L (137-145)
[2018-07-08] MEDS: ALBUTEROL NEBULIZED 2.5 MG/3 ML INHALATION SCH ×2 (08:50→11:46)
[2018-07-08 08:53] VITALS: PULSE 90
[2018-07-08] MEDS ORDERED: LISINOPRIL 20 MG TAB PO SCH (09:00)
[2018-07-08 11:36] LABS: Glucose,Whole Blood 142 mg/dL (75-99)
--- NOTE | 2018-07-08 11:53 | P.DS ---
<Debbie Abbasi - Last Filed: 07/08/18 11:43> Providers Date of admission: 07/06/18 09:51 Expected date of discharge: 07/08/18 Attending physician: Julius Parson Consults: 07/06/18 14:40 Consult Physician Routine Consulting Provider: Bindu Nye Consult Reason/Comments: Medical management Do you want consulting provider notified?: Yes Primary care physician: [facility] Course: 48-year-old female who presented to undergo an elective sleeve gastrectomy for morbid obesity BMI 56. Patient has a history of diabetes, hypertension, hyperlipidemia and osteoarthritis due to morbid obesity. On July 06 patient underwent a laparoscopic sleeve gastrectomy patient tolerated the procedure well the upper GI showed no evidence of a leak or obstruction area patient is up ambulatory in the room. At the time of discharge patient was tolerating a diet bariatric clear with no further episodes of nausea vomiting or dry heaves pain medication is effective for pain control surgical dressing sites dry patient was felt to be appropriate to be discharged Impression discharge diagnosis Morbid obesity due to excess calories BMI 56 I history of diabetes Hypertension Hyperlipidemia Osteoarthritis Recent upper endoscope showed gastritis with small erosions Mild tachycardia expected postop resolved The above impression and plan of care have been discussed and directed by signing physician. Debbie Abbasi nurse practitioner acting as scribe for signing physician. Plan - Discharge Summary Discharge Rx Participant: Yes New Discharge Prescriptions: New Bisacodyl [Dulcolax] 5 mg PO DAILY PRN #10 tablet.dr PRN Reason: Constipation Hydrocodone/Acetaminophen [[place] 5-325] 1 - 2 each PO Q4HR PRN #10 tab PRN Reason: pain Omeprazole [PriLOSEC] 20 mg PO AC-BRKFST #90 cap Ondansetron Odt [Zofran Odt] 4 mg PO Q8HR PRN #9 tab PRN Reason: Nausea Simethicone 40 mg/0.6 ml Drops [Mylicon Drops] 40 mg PO PCHS PRN #30 ml PRN Reason: Gas No Action Ibuprofen [Motrin] 400 - 800 mg PO TID Simvastatin [Zocor] 20 mg PO HS #30 tab metFORMIN HCL [Glucophage] 1,000 mg PO BID amLODIPine [Norvasc] 10 mg PO DAILY Lisinopril [Prinivil] 40 mg PO DAILY Aspirin 81 mg PO DAILY Pioglitazone [Actos] 15 mg PO HS Glimepiride [Amaryl] 2 mg PO BID Hydrochlorothiazide [Hydrodiuril] 25 mg PO DAILY Multivitamins, Thera [Multivitamin (formulary)] 1 tab PO DAILY Omeprazole [PriLOSEC] 20 mg PO AC-BRKFST #90 cap Alogliptin Benzoate [Alogliptin] 25 mg PO HS Discharge Medication List Ibuprofen [Motrin] 400 - 800 mg PO TID 01/25/15 [History] Simvastatin [Zocor] 20 mg PO HS #30 tab 01/27/15 [Rx] metFORMIN HCL [Glucophage] 1,000 mg PO BID 03/26/18 [History] Aspirin 81 mg PO DAILY 03/27/18 [History] Glimepiride [Amaryl] 2 mg PO BID 03/27/18 [History] Hydrochlorothiazide [Hydrodiuril] 25 mg PO DAILY 03/27/18 [History] Lisinopril [Prinivil] 40 mg PO DAILY 03/27/18 [History] Multivitamins, Thera [Multivitamin (formulary)] 1 tab PO DAILY 03/27/18 [History ] Pioglitazone [Actos] 15 mg PO HS 03/27/18 [History] amLODIPine [Norvasc] 10 mg PO DAILY 03/27/18 [History] Omeprazole [PriLOSEC] 20 mg PO AC-BRKFST #90 cap 04/17/18 [Rx] Alogliptin Benzoate [Alogliptin] 25 mg PO HS 05/14/18 [History] Bisacodyl [Dulcolax] 5 mg PO DAILY PRN #10 tablet. 07/06/18 [Rx] Hydrocodone/Acetaminophen [[place] 5-325] 1 - 2 each PO Q4HR PRN #10 tab 07/06/18 [Rx] Omeprazole [PriLOSEC] 20 mg PO AC-BRKFST #90 cap 07/06/18 [Rx] Ondansetron Odt [Zofran Odt] 4 mg PO Q8HR PRN #9 tab 07/06/18 [Rx] Simethicone 40 mg/0.6 ml Drops [Mylicon Drops] 40 mg PO PCHS PRN #30 ml [Rx] Follow up Appointment(s)/Referral(s): Julius Parson MD [Medical Doctor] - 07/13/18 10:00 am (Bariatric Center) Patient Instructions/Handouts: Nutrition after Bariatric Surgery (DC) Activity/Diet/Wound Care/Special Instructions: No tub bath for six weeks. Shower daily. No lifting over 10 pounds for the next 2 weeks. Bariatric clear liquid diet May use ice packs to surgical site. No driving while taking narcotic for pain. To follow-up in the bariatric center on Friday next week to meet with the dietitian and bariatric team Discharge Disposition: HOME SELF-CARE <Julius Parson - Last Filed: 07/08/18 12:41> - Discharge Diagnosis(es) (1) Morbid obesity Current Visit: Yes Status: Acute Hospital Course: As above. Patient doing well. We'll discharge today. Follow-up in the bariatric center next week.
--- NOTE | 2018-07-08 12:30 | P.PN ---
Subjective No overnight events patient is not doing much better able to tolerate diet. Patient is being discharged today. No changes in her discharge medications are being made as there is no N of time during this hospitalization to titrate her antidepressant medications and diabetic medications. Although patient was counseled that she may not require all her anti-happens is her diabetic medications once she starts losing weight and need to watch blood sugars and blood pressure closely at home. Objective - Vital Signs Vital signs: Vital Signs Temp 98 F 07/08/18 07:18 Pulse 90 07/08/18 09:03 Resp 16 07/08/18 07:25 BP 158/85 07/08/18 07:18 Pulse Ox 95 07/08/18 07:18 Intake & Output 07/07/18 07/08/18 07/08/18 18:59 06:59 18:59 Intake Total 350 Balance 350 Weight 159.891 kg Intake: Intake, IV Titration 350 Amount 0.9% NaCl with KCl 20 Meq 350 /l 1,000 ml @ 100 mls/hr IV .BY DURATION [facility] Rx#: [id number] Other: Voiding Method Bedside Commode Bedside Commode # Voids 4 3 - Exam PHYSICAL EXAMINATION: GENERAL: The patient is alert and oriented x3, not in any acute distress. Morbidly obese HEENT: Pupils are round and equally reacting to light. EOMI. No scleral icterus. No conjunctival pallor. Normocephalic, atraumatic. No pharyngeal erythema. No thyromegaly. CARDIOVASCULAR: S1 and S2 present. No murmurs, rubs, or gallops. PULMONARY: Chest is clear to auscultation, no wheezing or crackles. ABDOMEN: Soft, surgical site areas doesn't appear to be infected does have bowel sounds MUSCULOSKELETAL: No joint swelling or deformity. EXTREMITIES: No cyanosis, clubbing, or pedal edema. NEUROLOGICAL: Gross neurological examination did not reveal any focal deficits. SKIN: No rashes. - Labs CBC & Chem 7: 07/08/18 07:28 07/08/18 07:28 Labs: Abnormal Lab Results - Last 24 Hours (Table) 07/07/18 07/07/18 07/07/18 Range/Units 06:52 17:06 19:51 Glucose (74-99) mg/dL POC Glucose (mg/dL) 184 H 177 H (75-99) mg/dL Hemoglobin A1c 6.8 H (4.0-6.0) % 07/08/18 07/08/18 07/08/18 Range/Units 07:01 07:28 11:25 Glucose 164 H (74-99) mg/dL POC Glucose (mg/dL) 218 H 142 H (75-99) mg/dL Hemoglobin A1c (4.0-6.0) % Assessment and Plan Plan: -Hypertension: Given be resumed on her home medications check the blood pressure at home. -Type 2 diabetes mellitus patient was resumed on her oral hypoglycemic agents follow-up with endocrinology as an outpatient. Gastroesophageal reflux disease: Patient is on simethicone and Protonix -Morbid obesity: Patient is status post sleeve gastrectomy -Mild tachycardia expected postoperative. Improved
== END 2018-07-08 12:45 | disposition home or self-care (01) | DRG 621 ==
LOC: 2ORMAIN 09:51 → 4SSUR 14:37
PROVIDERS: ADMIT Surgery; ATTEND Surgery
PROC: 0DB64Z3 Excision of Stomach, Percutaneous Endoscopic Approach, Vertical (ICD-10-PCS; principal; 2018-07-06 12:05)
DX: E66.01 Morbid (severe) obesity due to excess calories (principal); E11.9 Type 2 diabetes mellitus without complications; K21.9 Gastro-esophageal reflux disease without esophagitis; E78.00 Pure hypercholesterolemia, unspecified; E78.5 Hyperlipidemia, unspecified; M19.90 Unspecified osteoarthritis, unspecified site; I10 Essential (primary) hypertension; Z87.440 Personal history of urinary (tract) infections; Z82.49 Family history of ischemic heart disease and other diseases of the circulatory system; Z83.3 Family history of diabetes mellitus; Z87.891 Personal history of nicotine dependence; Z79.82 Long term (current) use of aspirin; Z79.899 Other long term (current) drug therapy; Z79.84 Long term (current) use of oral hypoglycemic drugs; Z79.1 Long term (current) use of non-steroidal anti-inflammatories (NSAID); Z91.012 Allergy to eggs; Z88.7 Allergy status to serum and vaccine; Z91.018 Allergy to other foods; Z68.43 Body mass index [BMI] 50.0-59.9, adult; Z80.0 Family history of malignant neoplasm of digestive organs; Z82.3 Family history of stroke
CPT/HCPCS: 74240; 80048; 80051; 81025; 82310; 82565; 83036; 83735; 84100; 84520; 85025; 88307; 94640; 94760; 94762

== ENCOUNTER → 2018-07-28 | Outpatient (CLI) | payer OTHER ==
--- NOTE | 2018-07-28 15:29 | P.BASOAP ---
Subjective Progress Note Date: 07/28/18 Principal diagnosis: Morbid obesity Patient doing well postoperatively. Sleeve gastrectomy performed on 07/06. She is taking in adequate liquid and protein postoperatively. Only one episode of emesis since discharge. No heartburn. She had stopped her antiacids but will resume. 12 pounds weight loss since surgery. Denies pain. She is ambulating more. Objective - Exam Abdomen: Soft, nondistended, incisions clean and dry Assessment/Plan (1) Morbid obesity Narrative/Plan: Increase activity levels. Gradually increase diet as well. Resume taking antiacids. We'll check one month labs. Follow-up 4-6 weeks. Plan: Date: Initial Weight: 169.598 kg Initial BMI: Current Weight: Current BMI: Type of Surgery: Total Volume in Band: Previous Volume: Volume Removed: Volume Added: Band Size:
[2018-07-28 15:45] VITALS: BMI 53.9
[2018-07-28 15:59] VITALS: BP 168/101; PULSE 76; TEMP 97.8
== END | disposition home or self-care (01) ==
LOC: BARWHC3 14:56
PROVIDERS: ATTEND Surgery
DX: E66.01 Morbid (severe) obesity due to excess calories (principal); Z68.43 Body mass index [BMI] 50.0-59.9, adult; Z98.84 Bariatric surgery status
CPT/HCPCS: 97803; G0463; 99211

== ENCOUNTER → 2018-08-03 | Outpatient (CLI) | payer OTHER ==
[2018-08-03 16:30] LABS: HCT 39.1 % (34.0-46.0); HGB 12.5 gm/dL (11.4-16.0); MCH 28.8 pg (25.0-35.0); Mean Platelet Volume 7.2; Platelet Count 318 k/uL (150-450); RBC 4.35 m/uL (3.80-5.40); RDW 13.8 % (11.5-15.5)
[2018-08-04 03:39] LABS: Vitamin D 25 Hydroxy 32.8 ng/mL (30.0-100.0)
[2018-08-04 03:48] LABS: Folate, Serum 11.7 ng/mL
[2018-08-04 03:56] LABS: Albumin 4.2 g/dL (3.80-4.90); Albumin/Globulin Ratio 1.83 (1.20-2.10); Anion Gap 9.5 mmol/L (4.00-12.00); Calcium 9.8 mg/dL (8.7-10.3); Carbon Dioxide 27.5 mmol/L (21.6-31.8); Globulin 2.3 g/dL (2.1-3.7); Total Bilirubin 0.6 mg/dL (0.2-1.2); Total Protein 6.5 g/dL (6.2-8.2)
== END | disposition home or self-care (01) ==
LOC: LABWHC1 14:58
PROVIDERS: ATTEND Surgery
DX: E66.01 Morbid (severe) obesity due to excess calories (principal); E55.9 Vitamin D deficiency, unspecified; K90.89 Other intestinal malabsorption
CPT/HCPCS: 36415; 80053; 82306; 82607; 82746; 84425; 85027

== ENCOUNTER → 2018-10-13 | Outpatient (CLI) | payer OTHER ==
--- NOTE | 2018-10-13 13:35 | P.BASOAP ---
Subjective Progress Note Date: 10/13/18 Principal diagnosis: Morbid obesity Patient returns for 3 month follow-up visit after sleeve gastrectomy on 07/06. Doing well at this time. 2 episodes of emesis since last visit. Once was when she ate too much the other time was oatmeal disagreed with her. Patient is more active. In fact she did not have her wheelchair today. She would like to start exercising more with biking at this time. She did develop some reflux that is controlled by eating a half piece of toast prior to bedtime. No abdominal pain. Still taking her antiacids. 28 pound weight loss since 07/28. Objective - Exam Abdomen: Soft, nontender, nondistended - Constitutional General appearance: Present: average body habitus Assessment/Plan (1) Morbid obesity Narrative/Plan: Continue antiacids at this time. Increase activity. May start using the recumbent bicycle. We'll check three-month labs at this time. Follow-up 4-6 weeks. Plan: Date: Initial Weight: 169.598 kg Initial BMI: Current Weight: Current BMI: Type of Surgery: Total Volume in Band: Previous Volume: Volume Removed: Volume Added: Band Size:
[2018-10-13 13:57] VITALS: BMI 49.3
[2018-10-13 14:27] VITALS: BP 179/111; PULSE 64; RESP 16; TEMP 97.6
== END ==
LOC: BARWHC3 12:21
PROVIDERS: ATTEND Surgery
DX: E66.01 Morbid (severe) obesity due to excess calories (principal); Z68.42 Body mass index [BMI] 45.0-49.9, adult
CPT/HCPCS: 97803; G0463; 99211

== ENCOUNTER → 2018-12-21 | Outpatient (CLI) | payer OTHER ==
[2018-12-21 11:34] LABS: HCT 39.4 % (34.0-46.0); HGB 12.6 gm/dL (11.4-16.0); MCH 28.3 pg (25.0-35.0); MCHC 32.1 g/dL (31.0-37.0); MCV 88.3 fL (80.0-100.0); Mean Platelet Volume 7.5; Platelet Count 327 k/uL (150-450); RBC 4.46 m/uL (3.80-5.40); RDW 14.9 % (11.5-15.5); WBC 5.4 k/uL (3.8-10.6)
[2018-12-21 17:47] LABS: Albumin 3.9 g/dL (3.80-4.90); Albumin/Globulin Ratio 1.77 (1.60-3.17); Anion Gap 6.6 mmol/L (4.00-12.00); Calcium 9.2 mg/dL (8.7-10.3); Carbon Dioxide 27.4 mmol/L (21.6-31.8); Globulin 2.2 g/dL (1.6-3.3); Potassium 3.9 mmol/L (3.5-5.5); Total Bilirubin 0.7 mg/dL (0.3-1.2); Total Protein 6.1 g/dL (6.2-8.2)
[2018-12-21 17:48] LABS: Iron Saturation 17.31 (12.00-45.00)
[2018-12-21 17:57] LABS: Vitamin D 25 Hydroxy 26.4 ng/mL (30.0-100.0)
[2018-12-21 18:09] LABS: Parathyroid Hormone Intact 58.3 pg/mL (14.0-72.0)
[2018-12-21 18:32] LABS: Folate, Serum >24.0 ng/mL
[2018-12-23 07:32] LABS: Vit B1(Thiamine) 48 ug/L (38-122)
== END | disposition home or self-care (01) ==
LOC: LABWHC1 10:14
PROVIDERS: ATTEND Surgery
DX: E66.01 Morbid (severe) obesity due to excess calories (principal); D50.8 Other iron deficiency anemias; E44.0 Moderate protein-calorie malnutrition; E55.9 Vitamin D deficiency, unspecified
CPT/HCPCS: 36415; 80053; 82306; 82728; 82746; 83540; 83550; 83970; 84134; 84425; 84443; 84590; 85027

== ENCOUNTER → 2018-12-22 | Outpatient (CLI) | payer OTHER ==
[2018-12-22 13:38] VITALS: BP 187/103; PULSE 67; RESP 16; TEMP 98.2; BMI 45.3
--- NOTE | 2018-12-22 13:59 | P.BASOAP ---
Subjective Progress Note Date: 12/22/18 Principal diagnosis: Morbid obesity Patient doing well today. She continues to increase her activity. She has lost 25 pounds in the last 2 months. She is no longer using her wheelchair. She is using her recumbent bicycle 6 days per week. She is hoping to have her left knee repaired soon. She had labs checked yesterday. Vitamin D was slightly low. No heartburn if she stops eating after 7 PM. Remains on antiacids. Objective - Vital Signs Vital signs: Vital Signs Temp 98.2 F 12/22/18 13:35 Pulse 67 12/22/18 13:35 Resp 16 12/22/18 13:35 BP 187/103 12/22/18 13:35 Pulse Ox Intake & Output 12/21/18 12/22/18 12/22/18 18:59 06:59 18:59 Weight 129.274 kg - Exam Abdomen: Soft, nontender, nondistended Assessment/Plan (1) Morbid obesity Narrative/Plan: Patient doing well postoperatively. The patient's 6 month labs look great. Continue antiacids for now. Patient will talk to orthopedics about scheduling left knee surgery in 2-3 months. Follow-up with me 2 months. Plan: Date: 12/22/18 Initial Weight: 169.598 kg Initial BMI: 59.4 Current Weight: 129.274 kg Current BMI: 45.3 Type of Surgery: Total Volume in Band: Previous Volume: Volume Removed: Volume Added: Band Size:
== END ==
LOC: BARWHC3 12:46
PROVIDERS: ATTEND Surgery
DX: E66.01 Morbid (severe) obesity due to excess calories (principal); Z68.42 Body mass index [BMI] 45.0-49.9, adult; Z79.899 Other long term (current) drug therapy
CPT/HCPCS: 97803; G0463; 99211

== ENCOUNTER 2019-01-26 17:17 | Emergency (ER) | payer OTHER ==
[2019-01-26 19:11] LABS: ALT 17 U/L (9-52); AST 33 U/L (14-36); Albumin 4.3 g/dL (3.5-5.0); Alkaline Phosphatase 74 U/L (38-126); Anion Gap 8 mmol/L; Blood Urea Nitrogen 18 mg/dL (7-17); Calcium 9.9 mg/dL (8.4-10.2); Carbon Dioxide 28 mmol/L (22-30); Chloride 105 mmol/L (98-107); Glucose 136 mg/dL (74-99); Potassium 3.8 mmol/L (3.5-5.1); Sodium 141 mmol/L (137-145); Total Bilirubin 0.6 mg/dL (0.2-1.3); Total Protein 7.7 g/dL (6.3-8.2)
[2019-01-26 19:12] LABS: INR 0.9 (<1.2); Partial Thromboplastin Time 24.2 sec (22.0-30.0); Prothrombin Time 9.9 sec (9.0-12.0)
[2019-01-26 19:13] LABS: Basophils # (A) 0.1 k/uL (0-0.2); Basophils % (A) 1 %; Eosinophils # (A) 0.3 k/uL (0-0.7); Eosinophils % (A) 5 %; HCT 43.2 % (34.0-46.0); HGB 13.7 gm/dL (11.4-16.0); Lymphocytes # (A) 2.4 k/uL (1.0-4.8); Lymphocytes % (A) 35 %; MCH 27.1 pg (25.0-35.0); MCHC 31.7 g/dL (31.0-37.0); MCV 85.7 fL (80.0-100.0); Mean Platelet Volume 7.8; Monocytes # (A) 0.4 k/uL (0-1.0); Monocytes % (A) 5 %; Neutrophils # (A) 3.7 k/uL (1.3-7.7); Neutrophils % (A) 53 %; Platelet Count 381 k/uL (150-450); RBC 5.04 m/uL (3.80-5.40); RDW 14.5 % (11.5-15.5)
[2019-01-26] MEDS ORDERED: SODIUM CHLORIDE 0.9% 500 ML 500 ML IV ONE (20:36)
--- NOTE | 2019-01-26 20:54 | ED ---
General Adult HPI - General Chief complaint: Recheck/Abnormal Lab/Rx Stated complaint: High blood pressure Time Seen by Provider: 01/26/19 20:17 Source: patient Mode of arrival: ambulatory Limitations: no limitations - History of Present Illness Initial comments: 48-year-old female patient presents to the emergency department today for evaluation of elevated blood pressure and intermittent episodes of dizziness. Patient states that she has history of morbid obesity, states she has lost 250 pounds. She did have gastric sleeve procedure performed in July. Patient states that in June she was taken off of all of her diabetes and hypertension medications after losing weight. States that she has been doing well. Patient states that at her last doctor's visit her blood pressure was high normal. States that today she started feeling dizzy and developed a headache so she checked her blood pressure and it was elevated. Patient states that she called her doctor, the to recheck it and if still elevated to come to the emergency department for further evaluation. Patient denies any blurred or double vision. Denies any numbness, tingling, weakness to her extremities. She denies any chest pain or shortness of breath. States she has been eating and drinking without difficulty. Patient denies any recent rash, abdominal pain, nausea, v omiting, diarrhea, constipation, back pain, hematuria, dysuria, urinary urgency, urinary frequency, or any other complaints. - Related Data Home Medications Medication Instructions Recorded Confirmed Multivitamin/Iron/Folic Acid 2 tab PO BID 10/13/18 01/26/19 [Centrum Complete Multivit Tab] Previous Rx's Medication Instructions Recorded Cephalexin [Keflex] 500 mg PO Q6H #28 cap 01/26/19 Allergies Allergy/AdvReac Type Severity Reaction Status Date / Time No Known Allergies Allergy Verified 01/26/19 20:40 Review of Systems ROS Statement: Those systems with pertinent positive or pertinent negative responses have been documented in the HPI. ROS Other: All systems not noted in ROS Statement are negative. Past Medical History Past Medical History: Diabetes Mellitus, Hypertension Additional Past Medical History / Comment(s): frequent kidney infection, renal insufficiency, History of Any Multi-Drug Resistant Organisms: None Reported Past Surgical History: Orthopedic Surgery Additional Past Surgical History / Comment(s): LEFT LEG PLATES AND SCREWS (3 surgeries total), lap gastric sleeve Past Anesthesia/Blood Transfusion Reactions: Motion Sickness Additional Past Anesthesia/Blood Transfusion Reaction / Comment(s): No transfusion to date Past Psychological History: No Psychological Hx Reported Smoking Status: Former smoker Past Alcohol Use History: None Reported Past Drug Use History: None Reported - Past Family History Father Family Medical History: Cancer, Diabetes Mellitus, Hypertension Additional Family Medical History / Comment(s): colon cancer, smoked and was an alcoholic, brain sx for benign tumors, and cabg Mother Family Medical History: Cancer, CVA/TIA, Diabetes Mellitus, Hypertension, Liver Disease Additional Family Medical History / Comment(s): heart problems, liver cancer and renal problems. grandmother cva x5, heart disease General Exam Limitations: no limitations General appearance: alert, in no apparent distress, other (Physical well- developed, well-nourished adult female patient in no acute distress. Vital signs upon presentation are temperature 98.2F, pulse 81, respirations 18, blood pressure 160/107, pulse ox 99% on room air.) Eye exam: Present: normal appearance, PERRL, EOMI. Absent: scleral icterus, conjunctival injection, periorbital swelling ENT exam: Present: normal exam, normal oropharynx, mucous membranes moist Respiratory exam: Present: normal lung sounds bilaterally. Absent: respiratory distress, wheezes, rales, rhonchi, stridor Cardiovascular Exam: Present: regular rate, normal rhythm, normal heart sounds. Absent: systolic murmur, diastolic murmur, rubs, gallop, clicks Neurological exam: Present: alert, oriented X3, CN II-XII intact, other (Strength in all 4 extremities is 5/5.) Psychiatric exam: Present: normal affect, normal mood Skin exam: Present: warm, dry, intact, normal color. Absent: rash Course Vital Signs 01/26/19 01/26/19 01/26/19 18:12 20:31 20:36 Temperature 98.2 F 97.9 F Pulse Rate 81 71 79 Respiratory 18 14 16 Rate Blood Pressure 160/107 189/130 O2 Sat by Pulse 99 99 96 Oximetry 01/26/19 01/26/19 01/26/19 20:40 20:50 21:00 Temperature Pulse Rate 72 68 64 Respiratory 11 L 19 19 Rate Blood Pressure 189/130 169/95 169/95 O2 Sat by Pulse 98 98 100 Oximetry 01/26/19 01/26/19 01/26/19 21:10 21:20 21:30 Temperature Pulse Rate 68 71 Respiratory 17 17 Rate Blood Pressure 177/85 177/85 177/85 O2 Sat by Pulse 94 L 100 Oximetry 01/26/19 01/26/19 01/26/19 21:40 21:50 22:00 Temperature Pulse Rate 76 72 72 Respiratory 20 16 15 Rate Blood Pressure 157/89 157/89 157/89 O2 Sat by Pulse 99 98 96 Oximetry 01/26/19 01/26/19 01/26/19 22:10 22:20 23:23 Temperature 98.7 F Pulse Rate 73 63 81 Respiratory 19 19 16 Rate Blood Pressure 159/85 159/85 155/78 O2 Sat by Pulse 98 100 98 Oximetry Medical Decision Making - Medical Decision Making 48-year-old female patient presented to the emergency department today for evaluation of elevated blood pressure. Patient reports that she had to elevated blood pressures prior to arrival here. Physical examination is unremarkable. She is neurologically intact with no focal deficits. Denied chest pain or trouble breathing. Labs reviewed and are unremarkable. She does have evidence for urinary tract infection. While in the department blood pressures did improve to the 150 systolic over 80s diastolic. I did discuss findings and results with the patient. She will be discharged at this time to follow-up with her primary care physician for recheck in 1-2 days. She is urged to keep a blood pressure log and to take this with her to her appointment so her primary care physician can decide whether or not to start her on medication. Return parameters discussed in detail. She verbalizes understanding and agrees with this plan. - Lab Data Result diagrams: 01/26/19 18:45 01/26/19 18:45 Lab Results 01/26/19 01/26/19 01/26/19 Range/Units 18:45 18:45 18:45 WBC 7.0 (3.8-10.6) k/uL RBC 5.04 (3.80-5.40) m/uL Hgb 13.7 (11.4-16.0) gm/dL Hct 43.2 (34.0-46.0) % MCV 85.7 (80.0-100.0) fL MCH 27.1 (25.0-35.0) pg MCHC 31.7 (31.0-37.0) g/dL RDW 14.5 (11.5-15.5) % Plt Count 381 (150-450) k/uL Neutrophils % 53 % Lymphocytes % 35 % Monocytes % 5 % Eosinophils % 5 % Basophils % 1 % Neutrophils # 3.7 (1.3-7.7) k/uL Lymphocytes # 2.4 (1.0-4.8) k/uL Monocytes # 0.4 (0-1.0) k/uL Eosinophils # 0.3 (0-0.7) k/uL Basophils # 0.1 (0-0.2) k/uL PT 9.9 (9.0-12.0) sec INR 0.9 (<1.2) APTT 24.2 (22.0-30.0) sec Sodium 141 (137-145) mmol/L Potassium 3.8 (3.5-5.1) mmol/L Chloride 105 (98-107) mmol/L Carbon Dioxide 28 (22-30) mmol/L Anion Gap 8 mmol/L BUN 18 H (7-17) mg/dL Creatinine 0.66 (0.52-1.04) mg/dL Est GFR (CKD-EPI)AfAm >90 (>60 ml/min/1.73 sqM) Est GFR (CKD-EPI)NonAf >90 (>60 ml/min/1.73 sqM) Glucose 136 H (74-99) mg/dL Calcium 9.9 (8.4-10.2) mg/dL Total Bilirubin 0.6 (0.2-1.3) mg/dL AST 33 (14-36) U/L ALT 17 (9-52) U/L Alkaline Phosphatase 74 (38-126) U/L Troponin I (0.000-0.034) ng/mL Total Protein 7.7 (6.3-8.2) g/dL Albumin 4.3 (3.5-5.0) g/dL Urine Color Urine Appearance (Clear) Urine pH (5.0-8.0) Ur Specific [place] (1.001-1.035) Urine Protein (Negative) Urine Glucose (UA) (Negative) Urine Ketones (Negative) Urine Blood (Negative) Urine Nitrite (Negative) Urine Bilirubin (Negative) Urine Urobilinogen (<2.0) mg/dL Ur Leukocyte Esterase (Negative) Urine RBC (0-5) /hpf Urine WBC (0-5) /hpf Ur Squamous Epith Cells (0-4) /hpf Calcium Oxalate Crystal (None) /hpf Amorphous Sediment (None) /hpf Urine Bacteria (None) /hpf Urine Mucus (None) /hpf 01/26/19 01/26/19 Range/Units 18:45 21:46 WBC (3.8-10.6) k/uL RBC (3.80-5.40) m/uL Hgb (11.4-16.0) gm/dL Hct (34.0-46.0) % MCV (80.0-100.0) fL MCH (25.0-35.0) pg MCHC (31.0-37.0) g/dL RDW (11.5-15.5) % Plt Count (150-450) k/uL Neutrophils % % Lymphocytes % % Monocytes % % Eosinophils % % Basophils % % Neutrophils # (1.3-7.7) k/uL Lymphocytes # (1.0-4.8) k/uL Monocytes # (0-1.0) k/uL Eosinophils # (0-0.7) k/uL Basophils # (0-0.2) k/uL PT (9.0-12.0) sec INR (<1.2) APTT (22.0-30.0) sec Sodium (137-145) mmol/L Potassium (3.5-5.1) mmol/L Chloride (98-107) mmol/L Carbon Dioxide (22-30) mmol/L Anion Gap mmol/L BUN (7-17) mg/dL Creatinine (0.52-1.04) mg/dL Est GFR (CKD-EPI)AfAm (>60 ml/min/1.73 sqM) Est GFR (CKD-EPI)NonAf (>60 ml/min/1.73 sqM) Glucose (74-99) mg/dL Calcium (8.4-10.2) mg/dL Total Bilirubin (0.2-1.3) mg/dL AST (14-36) U/L ALT (9-52) U/L Alkaline Phosphatase (38-126) U/L Troponin I <0.012 (0.000-0.034) ng/mL Total Protein (6.3-8.2) g/dL Albumin (3.5-5.0) g/dL Urine Color Yellow Urine Appearance Cloudy H (Clear) Urine pH 6.0 (5.0-8.0) Ur Specific [place] 1.031 (1.001-1.035) Urine Protein 1+ H (Negative) Urine Glucose (UA) Negative (Negative) Urine Ketones Negative (Negative) Urine Blood Negative (Negative) Urine Nitrite Negative (Negative) Urine Bilirubin Negative (Negative) Urine Urobilinogen 2.0 (<2.0) mg/dL Ur Leukocyte Esterase Moderate H (Negative) Urine RBC 3 (0-5) /hpf Urine WBC 31 H (0-5) /hpf Ur Squamous Epith Cells 12 H (0-4) /hpf Calcium Oxalate Crystal Few H (None) /hpf Amorphous Sediment Rare H (None) /hpf Urine Bacteria Rare H (None) /hpf Urine Mucus Many H (None) /hpf Disposition Clinical Impression: Hypertension, Urinary tract infection Disposition: HOME SELF-CARE Condition: Good Instructions (If sedation given, give patient instructions): Urinary Tract Infection in Women (ED), Hypertension (ED) Additional Instructions: Keep log of your blood pressures. Follow up with your primary care physician for recheck in 1-2 days. Take log with you. Complete antibiotic prescription in full. Return to the emergency department for recheck for any new, worsening, or concerning symptoms . Prescriptions: Cephalexin [Keflex] 500 mg PO Q6H #28 cap Is patient prescribed a controlled substance at d/c from ED?: No Referrals: Fernando Tubbs III, MD [Primary Care Provider] - 1-2 days Time of Disposition: 22:31
[2019-01-26 22:07] LABS: Amorphous Sediment,Urine Rare /hpf; Appearance,Urine Cloudy (Clear); Bacteria,Urine Rare /hpf; Bilirubin,Urine Negative (Negative); Blood,Urine Negative (Negative); Calcium Oxalate Crystals,Urine Few /hpf; Color,Urine Yellow; Glucose,Urine (UA) Negative (Negative); Ketones,Urine Negative (Negative); Leukocyte Esterase,Urine Moderate (Negative); Mucus,Urine Many /hpf; Nitrite,Urine Negative (Negative); Protein,Urine 1+ (Negative); RBC,Urine 3 /hpf (0-5); Specific Gravity,Urine 1.031 (1.001-1.035); Squamous Epithelial Cell,Urine 12 /hpf (0-4); WBC,Urine 31 /hpf (0-5)
[2019-01-26] MEDS ORDERED: CEPHALEXIN 500MG STARTER PACK 4 CAP BTL PO STA (22:32)
[2019-01-26 23:24] VITALS: BP 155/78; PULSE 81; RESP 16; TEMP 98.7
== END 2019-01-26 23:23 | disposition home or self-care (01) ==
LOC: EC 17:17
DX: I10 Essential (primary) hypertension (principal); N39.0 Urinary tract infection, site not specified; Z87.891 Personal history of nicotine dependence
CPT/HCPCS: 36415; 80053; 81001; 84484; 85025; 85610; 85730; 87086; 93005; 96360; 99283

== ENCOUNTER → 2019-02-16 | Outpatient (CLI) | payer OTHER | END | disposition home or self-care (01) | LOC: LABWHC1 14:45 | PROVIDERS: ATTEND Surgery | DX: Z53.9 Procedure and treatment not carried out, unspecified reason (principal) ==

== ENCOUNTER → 2019-02-16 | Outpatient (CLI) | payer OTHER ==
[2019-02-16 15:34] LABS: Basophils % (A) 1 %; Eosinophils # (A) 0.3 k/uL (0-0.7); Eosinophils % (A) 4 %; HCT 41.3 % (34.0-46.0); HGB 12.8 gm/dL (11.4-16.0); Lymphocytes # (A) 2.5 k/uL (1.0-4.8); Lymphocytes % (A) 38 %; MCH 27.9 pg (25.0-35.0); MCV 89.9 fL (80.0-100.0); Mean Platelet Volume 7.3; Monocytes # (A) 0.4 k/uL (0-1.0); Monocytes % (A) 6 %; Neutrophils # (A) 3.2 k/uL (1.3-7.7); Neutrophils % (A) 50 %; Platelet Count 322 k/uL (150-450); RBC 4.59 m/uL (3.80-5.40); RDW 14.7 % (11.5-15.5); WBC 6.5 k/uL (3.8-10.6)
[2019-02-16 15:47] LABS: ALT 22 U/L (9-52); AST 25 U/L (14-36); African American GFR (CKD) >90 (>60 ml/min/1.73 sqM); Albumin 3.7 g/dL (3.5-5.0); Alkaline Phosphatase 67 U/L (38-126); Anion Gap 6 mmol/L; Blood Urea Nitrogen 16 mg/dL (7-17); Carbon Dioxide 27 mmol/L (22-30); Chloride 106 mmol/L (98-107); Glucose 117 mg/dL (74-99); Magnesium 1.9 mg/dL (1.6-2.3); Potassium 3.8 mmol/L (3.5-5.1); Sodium 139 mmol/L (137-145); Total Bilirubin 0.5 mg/dL (0.2-1.3); Total Protein 6.5 g/dL (6.3-8.2)
[2019-02-16 16:05] LABS: INR 0.9 (<1.2); Prothrombin Time 9.8 sec (9.0-12.0)
[2019-02-17 00:11] LABS: Iron Saturation 19.66 (12.00-45.00)
[2019-02-17 00:22] LABS: Vitamin D 25 Hydroxy 26.1 ng/mL (30.0-100.0)
[2019-02-17 00:40] LABS: Folate, Serum >24.0 ng/mL
[2019-02-17 12:35] LABS: Zinc, Serum 58 ug/dL (60-130)
[2019-02-18 06:17] LABS: Vitamin A 63 ug/dL (38-106)
[2019-02-18 08:19] LABS: Vit B1(Thiamine) 48 ug/L (38-122)
== END | disposition home or self-care (01) ==
LOC: LABPAT 14:41
PROVIDERS: ATTEND Orthopaedic Surgery
DX: Z01.812 Encounter for preprocedural laboratory examination (principal); M17.12 Unilateral primary osteoarthritis, left knee
CPT/HCPCS: 36415; 80053; 82306; 82607; 82728; 82746; 83540; 83550; 83735; 84100; 84134; 84425; 84443; 84590; 84630; 85025; 85610; 87070

== ENCOUNTER 2019-02-26 12:25 | Observation (INO) | payer OTHER ==
[2019-02-26] MEDS ORDERED: SODIUM CHLORIDE 0.9% 1,000 ML IV STA (12:29)
--- NOTE | 2019-02-26 12:46 | ED ---
General Adult HPI - General Chief complaint: Syncope Stated complaint: poss stroke Time Seen by Provider: 02/26/19 12:28 Source: patient, family, EMS Mode of arrival: EMS Limitations: no limitations - History of Present Illness Initial comments: 48-year-old female history of hypertension presents with near syncopal episode, head trauma, and some stuttering speech. Patient was standing in line waiting to donate plasma. She does donate plasma on a fairly regular basis. She last donated 6 days prior. She became lightheaded, fell striking the left side of her head. No loss consciousness. Patient was able to stand, however again felt lightheaded and dizzy. She did develop some stuttering speech. No slurred speech. No focal numbness or weakness. No vision changes. No history of TIA or CVA. No preceding symptoms, no nausea vomiting, no diaphoresis. No chest pain or dyspnea. - Related Data Home Medications Medication Instructions Recorded Confirmed Multivitamin [Multivitamins Adult 2 tab PO DAILY 02/26/19 02/26/19 Gummies] amLODIPine BESYLATE [Norvasc] 10 mg PO DAILY 02/26/19 02/26/19 Allergies Allergy/AdvReac Type Severity Reaction Status Date / Time No Known Allergies Allergy Verified 02/26/19 13:16 Review of Systems ROS Statement: Those systems with pertinent positive or pertinent negative responses have been documented in the HPI. ROS Other: All systems not noted in ROS Statement are negative. Past Medical History Past Medical History: Diabetes Mellitus, Hypertension Additional Past Medical History / Comment(s): frequent kidney infection, renal insufficiency, History of Any Multi-Drug Resistant Organisms: None Reported Past Surgical History: Orthopedic Surgery Additional Past Surgical History / Comment(s): LEFT LEG PLATES AND SCREWS (3 surgeries total), lap gastric sleeve Past Anesthesia/Blood Transfusion Reactions: Motion Sickness Additional Past Anesthesia/Blood Transfusion Reaction / Comment(s): No transfusion to date Past Psychological History: No Psychological Hx Reported Smoking Status: Former smoker Past Alcohol Use History: None Reported Past Drug Use History: None Reported - Past Family History Father Family Medical History: Cancer, Diabetes Mellitus, Hypertension Additional Family Medical History / Comment(s): colon cancer, smoked and was an alcoholic, brain sx for benign tumors, and cabg Mother Family Medical History: Cancer, CVA/TIA, Diabetes Mellitus, Hypertension, Liver Disease Additional Family Medical History / Comment(s): heart problems, liver cancer and renal problems. grandmother cva x5, heart disease General Exam Limitations: no limitations General appearance: alert, in no apparent distress Head exam: Present: normocephalic. Absent: atraumatic (Small parietal hematoma on the left) Eye exam: Present: normal appearance, PERRL, EOMI ENT exam: Present: normal exam Neck exam: Present: normal inspection. Absent: tenderness, meningismus Respiratory exam: Present: normal lung sounds bilaterally. Absent: respiratory distress, wheezes Cardiovascular Exam: Present: regular rate, normal rhythm GI/Abdominal exam: Present: soft. Absent: distended, tenderness, guarding Extremities exam: Present: normal inspection, normal capillary refill. Absent: pedal edema Neurological exam: Present: alert, oriented X3, CN II-XII intact. Absent: motor sensory deficit (Stuttering speech, no dysarthria, no aphasia) Psychiatric exam: Present: normal affect, normal mood Skin exam: Present: warm, dry, intact. Absent: cyanosis, diaphoretic Course Vital Signs 02/26/19 02/26/19 02/26/19 12:27 12:47 13:02 Temperature 98 F 98 F Pulse Rate 67 96 62 Respiratory 18 18 18 Rate Blood Pressure 155/126 121/82 150/92 O2 Sat by Pulse 100 98 98 Oximetry 02/26/19 14:02 Temperature 98 F Pulse Rate 65 Respiratory 18 Rate Blood Pressure 161/95 O2 Sat by Pulse 99 Oximetry - Reevaluation(s) Reevaluation #1: 02/26/19 15:20 Patient reevaluated, symptoms completely resolved. NIH of 0 Reevaluation #2: 02/26/[address] Guerra, stroke neurologist, recommends aspirin and statin, no TPA candidate. EKG Findings - EKG Comments: EKG Findings:: EKG: Normal sinus rhythm, LVH no ST segment elevation, T-wave inversion in the inferior leads 3 and aVF, rate of 62, WI interval 184, QRS duration 104, QTC 462. Medical Decision Making - Medical Decision Making 48-year-old female presenting with sudden onset stuttering speech and word finding difficulty. Patient has a stuttering in her voice, she has not dysarthric, she is able to communicate although it takes some time for her to find words. She has a nonfocal neurological exam otherwise. Initial NIH of 1. Head CT is performed, negative for skull hemorrhage or mass effect. CT angiography is performed which is also negative for acute vascular pathology. Case is discussed with stroke neurologist who recommended aspirin and statin. No TPA. Recommended admission for further workup. Patient has normal CBC, CMP shows mild hypokalemia which is replaced. Patient's given an aspirin in the emergency department. While in the emergency department her symptoms to resolve she has fluid speech. Diagnosis: TIA. - Lab Data Result diagrams: 02/26/19 12:54 02/26/19 12:54 Lab Results 02/26/19 02/26/19 02/26/19 Range/Units 12:54 12:54 12:54 WBC 6.7 (3.8-10.6) k/uL RBC 4.58 (3.80-5.40) m/uL Hgb 12.8 (11.4-16.0) gm/dL Hct 40.1 (34.0-46.0) % MCV 87.5 (80.0-100.0) fL MCH 27.9 (25.0-35.0) pg MCHC 31.8 (31.0-37.0) g/dL RDW 14.4 (11.5-15.5) % Plt Count 339 (150-450) k/uL Neutrophils % 55 % Lymphocytes % 33 % Monocytes % 5 % Eosinophils % 4 % Basophils % 1 % Neutrophils # 3.7 (1.3-7.7) k/uL Lymphocytes # 2.2 (1.0-4.8) k/uL Monocytes # 0.4 (0-1.0) k/uL Eosinophils # 0.2 (0-0.7) k/uL Basophils # 0.0 (0-0.2) k/uL PT (9.0-12.0) sec INR (<1.2) APTT (22.0-30.0) sec Sodium 140 (137-145) mmol/L Potassium 3.4 L (3.5-5.1) mmol/L Chloride 104 (98-107) mmol/L Carbon Dioxide 24 (22-30) mmol/L Anion Gap 12 mmol/L BUN 17 (7-17) mg/dL Creatinine 0.72 (0.52-1.04) mg/dL Est GFR (CKD-EPI)AfAm >90 (>60 ml/min/1.73 sqM) Est GFR (CKD-EPI)NonAf >90 (>60 ml/min/1.73 sqM) Glucose 129 H (74-99) mg/dL Calcium 9.7 (8.4-10.2) mg/dL Total Bilirubin 0.5 (0.2-1.3) mg/dL AST 26 (14-36) U/L ALT 27 (9-52) U/L Alkaline Phosphatase 72 (38-126) U/L Total Creatine Kinase 38 (30-135) U/L CK-MB (CK-2) <0.2 (0.0-2.4) ng/mL CK-MB (CK-2) Rel Index Troponin I <0.012 (0.000-0.034) ng/mL Total Protein 6.8 (6.3-8.2) g/dL Albumin 3.9 (3.5-5.0) g/dL 02/26/19 Range/Units 12:54 WBC (3.8-10.6) k/uL RBC (3.80-5.40) m/uL Hgb (11.4-16.0) gm/dL Hct (34.0-46.0) % MCV (80.0-100.0) fL MCH (25.0-35.0) pg MCHC (31.0-37.0) g/dL RDW (11.5-15.5) % Plt Count (150-450) k/uL Neutrophils % % Lymphocytes % % Monocytes % % Eosinophils % % Basophils % % Neutrophils # (1.3-7.7) k/uL Lymphocytes # (1.0-4.8) k/uL Monocytes # (0-1.0) k/uL Eosinophils # (0-0.7) k/uL Basophils # (0-0.2) k/uL PT 9.6 (9.0-12.0) sec INR 0.9 (<1.2) APTT 22.1 (22.0-30.0) sec Sodium (137-145) mmol/L Potassium (3.5-5.1) mmol/L Chloride (98-107) mmol/L Carbon Dioxide (22-30) mmol/L Anion Gap mmol/L BUN (7-17) mg/dL Creatinine (0.52-1.04) mg/dL Est GFR (CKD-EPI)AfAm (>60 ml/min/1.73 sqM) Est GFR (CKD-EPI)NonAf (>60 ml/min/1.73 sqM) Glucose (74-99) mg/dL Calcium (8.4-10.2) mg/dL Total Bilirubin (0.2-1.3) mg/dL AST (14-36) U/L ALT (9-52) U/L Alkaline Phosphatase (38-126) U/L Total Creatine Kinase (30-135) U/L CK-MB (CK-2) (0.0-2.4) ng/mL CK-MB (CK-2) Rel Index Troponin I (0.000-0.034) ng/mL Total Protein (6.3-8.2) g/dL Albumin (3.5-5.0) g/dL Critical Care Time Critical Care Time: Yes Total Critical Care Time: 35 Disposition Clinical Impression: TIA (transient ischemic attack) Disposition: ADMITTED IP TO THIS HOSP Condition: Stable Is patient prescribed a controlled substance at d/c from ED?: No Referrals: Fernando Tubbs III, MD [Primary Care Provider] - 1-2 days Decision to Admit Reason: Admit from EC Decision Date: 02/26/19 Decision Time: 15:20
[2019-02-26 13:15] LABS: ALT 27 U/L (9-52); AST 26 U/L (14-36); African American GFR (CKD) >90 (>60 ml/min/1.73 sqM); Albumin 3.9 g/dL (3.5-5.0); Alkaline Phosphatase 72 U/L (38-126); Anion Gap 12 mmol/L; Blood Urea Nitrogen 17 mg/dL (7-17); Calcium 9.7 mg/dL (8.4-10.2); Carbon Dioxide 24 mmol/L (22-30); Chloride 104 mmol/L (98-107); Glucose 129 mg/dL (74-99); Potassium 3.4 mmol/L (3.5-5.1); Sodium 140 mmol/L (137-145); Total Bilirubin 0.5 mg/dL (0.2-1.3); Total Protein 6.8 g/dL (6.3-8.2)
[2019-02-26 13:16] LABS: Basophils % (A) 1 %; Eosinophils # (A) 0.2 k/uL (0-0.7); Eosinophils % (A) 4 %; HCT 40.1 % (34.0-46.0); HGB 12.8 gm/dL (11.4-16.0); Lymphocytes # (A) 2.2 k/uL (1.0-4.8); Lymphocytes % (A) 33 %; MCH 27.9 pg (25.0-35.0); MCHC 31.8 g/dL (31.0-37.0); MCV 87.5 fL (80.0-100.0); Mean Platelet Volume 7.1; Monocytes # (A) 0.4 k/uL (0-1.0); Monocytes % (A) 5 %; Neutrophils # (A) 3.7 k/uL (1.3-7.7); Neutrophils % (A) 55 %; Platelet Count 339 k/uL (150-450); RBC 4.58 m/uL (3.80-5.40); RDW 14.4 % (11.5-15.5); WBC 6.7 k/uL (3.8-10.6)
[2019-02-26 13:21] LABS: INR 0.9 (<1.2); Partial Thromboplastin Time 22.1 sec (22.0-30.0); Prothrombin Time 9.6 sec (9.0-12.0)
[2019-02-26 13:24] LABS: Creatine Kinase 38 U/L (30-135)
--- NOTE | 2019-02-26 13:26 | CT ---
EXAMINATION TYPE: CT brain wo con DATE OF EXAM: 02/26/2019 COMPARISON: 01/25/2015 HISTORY: Neuro deficits CT DLP: 1616.[address] of the brain was performed. The ventricles, basal cisterns and sulci overlying the cerebral convexities demonstrate mild enlargem ent. There is no evidence for intracranial hemorrhage or sulcal effacement. There is decreased attenuation about the periventricular white matter and deep white matter of both c erebral hemispheres, compatible with chronic small vessel ischemia. Differential diagnosis does inclu de demyelination. No mass effects are seen.No midline shift. Osseous calvarium is intact. If symptoms persist consider MRI. IMPRESSION: 1. Age related atrophic and chronic small vessel ischemic change without acute intracranial process s een at this time.
[2019-02-26 13:37] LABS: Creatine Kinase MB <0.2 ng/mL (0.0-2.4); Troponin I <0.012 ng/mL (0.000-0.034)
--- NOTE | 2019-02-26 14:51 | XR ---
EXAMINATION TYPE: XR chest 2V DATE OF EXAM: 02/26/2019 COMPARISON: 01/25/2015 HISTORY: 48-year-old female confusion, dizziness, altered mental status TECHNIQUE: AP and lateral views FINDINGS: Heart upper limits of normal in size. Mild peribronchial cuffing and mild interstitial prominence. No consolidation or pleural effusion. IMPRESSION: Chronic changes, possible underlying bronchitis or asthma. No acute change clearly identified.
[2019-02-26] MEDS ORDERED: POTASSIUM CHLORIDE ER 20 MEQ TAB.ER PO STA (15:12)
[2019-02-26] MEDS ORDERED: ASPIRIN 325 MG TAB PO STA (15:12)
--- NOTE | 2019-02-26 15:18 | CT ---
EXAMINATION TYPE: CT angio head neck DATE OF EXAM: 02/26/2019 COMPARISON: None HISTORY: Neuro deficits CT DLP: 497.2 mGycm CONTRAST: Performed with IV Contrast, patient injected with 50 mL of Isovue 370. Combination Contrast CTA cervical carotids and [place] CTA cervical carotids with 3-D recons truction Contrast CTA of the cervical carotids was performed 3-D reconstruction imaging obtained at a separate workstation. Right carotid system: Mild plaque is seen of the right common carotid artery. There is mild plaque a lso noted at the carotid bulb and proximal ICA. No significant diameter reduction. ECA is patent. Right vertebral artery appears unremarkable. Left carotid system: Mild plaque is seen of the left common carotid artery. There is mild plaque als o noted at the carotid bulb and proximal ICA. No significant diameter reduction. ECA is patent. Lef t vertebral artery appears unremarkable. IMPRESSION: 1. No significant diameter reduction to account for the patient's symptoms. CTA [place] with 3-D reconstruction Contrast CTA of the [place] was performed 3-D reconstruction imaging obtained at a separate workstation. Vertebrobasilar system as well as intracranial portions of the internal carotid arteries and their ma [place] tributaries are patent. I do not see evidence for sizable aneurysm or vascular malformation. Pl ease note MRI provides greater sensitivity and specificity. Visualized brain appears grossly unremar kable. IMPRESSION: 1. No siginificant abnormality.
[2019-02-26] MEDS ORDERED: SODIUM CHLORIDE 0.9% 1,000 ML IV SCH (16:00)
--- NOTE | 2019-02-26 17:36 | P.CNNES ---
History of Present Illness Consult date: 02/26/19 Requesting physician: Akin Reis Reason for Consult: TIA Chief complaint: Fell, hit head, stuttering speech History of Present Illness: This is a 48 RH female h/o HTN and DM but improving since weight loss surgery who was standing in line waiting to donate plasma when she became lightheaded, fell, and hit the left posterior part of her cranium. She states that she lost consciousness briefly x2 during the event. No witnessed seizure activity. When she came to her senses, her speech was stuttering, so went to the ER for evaluation. A code stroke was called, and she was not deemed an acute vascular intervention candidate. Patient states she is now back to her baseline. She does feel some swelling of the scalp at the location where she struck her head. Denies any other concurrent neuro c/o. No new meds. Not sleep deprived or dehydrated. No other physical or emotional stressors. This was not the first time she donated plasma. No other medical c/o. Review of Systems 14-point ROS performed and as per HPI. Neurologically, patient denies other episodes of decreased level or loss of consciousness, headache, seizure, changes in vision, diplopia, amaurosis, changes in hearing, facial droop, ptosis, vertigo, hearing loss, tinnitus, dysphagia, aphasia, other focal numbness/weakness not mentioned above, tremors, bowel/bladder incontinence or ataxia. Past Medical History Past Medical History: Diabetes Mellitus, Hypertension Additional Past Medical History / Comment(s): frequent kidney infection, renal insufficiency, History of Any Multi-Drug Resistant Organisms: None Reported Past Surgical History: Orthopedic Surgery Additional Past Surgical History / Comment(s): LEFT LEG PLATES AND SCREWS (3 surgeries total), lap gastric sleeve Past Anesthesia/Blood Transfusion Reactions: Motion Sickness Additional Past Anesthesia/Blood Transfusion Reaction / Comment(s): No transfusion to date Past Psychological History: No Psychological Hx Reported Smoking Status: Former smoker Past Alcohol Use History: None Reported Past Drug Use History: None Reported - Past Family History Father Family Medical History: Cancer, Diabetes Mellitus, Hypertension Additional Family Medical History / Comment(s): colon cancer, smoked and was an alcoholic, brain sx for benign tumors, and cabg Mother Family Medical History: Cancer, CVA/TIA, Diabetes Mellitus, Hypertension, Liver Disease Additional Family Medical History / Comment(s): heart problems, liver cancer and renal problems. grandmother cva x5, heart disease Medications and Allergies Home Medications Medication Instructions Recorded Confirmed Type Multivitamin [Multivitamins Adult 2 tab PO DAILY 02/26/19 02/26/19 History Gummies] amLODIPine BESYLATE [Norvasc] 10 mg PO DAILY 02/26/19 02/26/19 History Allergies Allergy/AdvReac Type Severity Reaction Status Date / Time No Known Allergies Allergy Verified 02/26/19 13:16 Physical Examination - Vital Signs Vital Signs: Vital Signs Temp Pulse Resp BP Pulse Ox 02/26/19 14:02 98 F 65 18 161/95 99 02/26/19 13:02 62 18 150/92 98 02/26/19 12:47 98 F 96 18 121/82 98 02/26/19 12:27 98 F 67 18 155/126 100 Intake and Output 02/26/19 02/26/19 02/26/19 06:59 14:59 22:59 Other: Weight 126.598 kg Gen NAD Pleasant and cooperative HEENT NCAT Sclera without icterus O/P clear Neck Supple No carotid bruit Cor RRR no m/r/g Lungs CTAB Abd Soft NTND +BS Ext Warm to touch No edema Neuro MS A+Ox4 Normal fluency Able to follow all commands CN PERRL VFF no APD EOMI no nystagmus or SABI No facial asymmetry Masseter's symmetric Hearing intact to normal voice bilaterally Speech not dysarthric Equal elevation of palate Tongue midline Sym shrug and SCM bilaterally Motor Normal bulk/tone No pronator drift or tremors Strength 5/5 sym throughout Sens Intact to LT x4 No neglect Coord No dysmetria on FTN bilaterally DTRs 2+/4 sym throughout Toes downgoing bilaterally No clonus at achilles Gait Deferred NIHSS 0 Results - Laboratory Findings CBC and BMP: 02/26/19 12:54 02/26/19 12:54 Abnormal Lab Findings: Abnormal Labs 02/26/19 12:54 Potassium 3.4 L Glucose 129 H - Diagnostic Findings Additional findings: CT Head wo cont 02/26/19. Age related atrophy. Chronic small vessel disease. No ICH. Nil acute. CTA Head/Neck 02/26/19. No LVO or stenosis. Assessment and Plan Assessment: 1. Stuttering speech, likely due to # 2. Head injury/mild concussion 3. Syncope- no apparent vascular explanation. Does not sound like seizure at all. Plan: -Obs overnight for mild concussion. Current neuro exam normal. -Given she does have vascular risk factors and evidence of small vessel disease on CT, will start patient on aspirin 81mg/day. -Statin therapy goal LDL <70. Fasting lipids in am. -Medical work-up for syncope per primary team. TTE has been ordered. -No other neuro work-up recommended at this time. -If patient remains neurologically stable by tomorrow, may be discharged from neuro standpoint. -d/w patient/family at bedside in detail. All questions answered. Neurology will be available again on 03/01/19 at 8am. Thank you for this consultation. Time with Patient: Greater than 30 (Time spent in direct patient care, greater than 50% of which was spent in [id number] counseling and coordination of care: 70 minutes.)
[2019-02-26] MEDS: ATORVASTATIN 80 MG TAB PO SCH ×2 (20:13→20:15)
[2019-02-26 21:31] LABS: Glucose,Whole Blood 113 mg/dL (75-99)
[2019-02-26 21:44] VITALS: BMI 45.0
--- NOTE | 2019-02-27 00:07 | P.HPIM ---
History of Present Illness H&P Date: 02/26/19 Chief Complaint: Syncope Patient is a 48-year-old female with a known history of hypertension, diabetes type 2, history of gastric sleeve surgery and left ankle fracture and leg fracture with plates and screws initially presents to the hospital status post syncopal episode. Patient was apparently standing in line for plasma donation when she suddenly became lightheaded and fell and hit her left side of the head. Patient says that she briefly lost his consciousness. No witnessed shaky movement are weakness after episode. Patient noted to have expressive aphasia and dysarthria after waking up and patient was transferred to the hospital ER where stroke team was called. Recommended medical management at this time. Currently patient denied any complaints of weakness. No headache or dizziness. No numbness or tingling sensation. A burgess days back to her baseline. No neurological deficits currently. CT head showed age-related atrophic and chronic small vessel ischemic changes without acute intracranial process seen at this time. CTA head and neck showed no acute abnormality. Chest x-ray showed no cardiopulmonary process. EKG showed normal sinus rhythm. Troponin 1 negative. Potassium 3.4. All other laboratory data reviewed. Past Medical History Past Medical History: Diabetes Mellitus, Hypertension Additional Past Medical History / Comment(s): frequent kidney infection, renal insufficiency, History of Any Multi-Drug Resistant Organisms: None Reported Past Surgical History: Orthopedic Surgery Additional Past Surgical History / Comment(s): LEFT LEG PLATES AND SCREWS (3 surgeries total), lap gastric sleeve Past Anesthesia/Blood Transfusion Reactions: Motion Sickness Additional Past Anesthesia/Blood Transfusion Reaction / Comment(s): No transfusion to date Past Psychological History: No Psychological Hx Reported Smoking Status: Former smoker Past Alcohol Use History: None Reported Past Drug Use History: None Reported - Past Family History Father Family Medical History: Cancer, Diabetes Mellitus, Hypertension Additional Family Medical History / Comment(s): colon cancer, smoked and was an alcoholic, brain sx for benign tumors, and cabg Mother Family Medical History: Cancer, CVA/TIA, Diabetes Mellitus, Hypertension, Liver Disease Additional Family Medical History / Comment(s): heart problems, liver cancer and renal problems. grandmother cva x5, heart disease Medications and Allergies Home Medications Medication Instructions Recorded Confirmed Type Multivitamin [Multivitamins Adult 2 tab PO DAILY 02/26/19 02/26/19 History Gummies] amLODIPine BESYLATE [Norvasc] 10 mg PO DAILY 02/26/19 02/26/19 History Allergies Allergy/AdvReac Type Severity Reaction Status Date / Time No Known Allergies Allergy Verified 02/26/19 13:16 Physical Exam Vitals: Vital Signs Temp Pulse Pulse Resp BP BP Pulse Ox 02/26/19 20:21 97.9 F 59 L 18 157/80 98 02/26/19 18:10 65 16 157/69 98 02/26/19 18:00 70 15 157/69 98 02/26/19 17:52 58 L 16 158/72 97 02/26/19 17:50 66 15 157/69 02/26/19 17:40 58 L 20 157/69 99 02/26/19 17:35 64 11 L 02/26/19 16:52 16 158/72 97 02/26/19 14:02 98 F 65 18 161/95 99 02/26/19 13:02 62 18 150/92 98 02/26/19 12:47 98 F 96 18 121/82 98 02/26/19 12:27 98 F 67 18 155/126 100 Intake and Output 02/26/19 02/26/19 02/26/19 06:59 14:59 22:59 Other: Weight 126.598 kg Results CBC & Chem 7: 02/26/19 12:54 02/26/19 12:54 Labs: Abnormal Lab Results - Last 24 Hours (Table) 02/26/19 Range/Units 12:54 Potassium 3.4 L (3.5-5.1) mmol/L Glucose 129 H (74-99) mg/dL Assessment and Plan Assessment: Slurred speech and expressive aphasia likely due to head concussion status post fall. Patient is symptomatic now. Syncope likely due to orthostatic. Hypokalemia Hypertension Diabetes type 2 History of sleeve gastrectomy surgery Morbid obesity with BMI 45.0 And previous history of smoking Plan: Patient be continued on telemetry monitoring. Patient was given IV fluid bolus in the ER. Replace potassium. CT head and CT angiogram of the head and neck showed no acute abnormalities. Neurology was consulted. TTE was ordered. Continue to monitor the patient overnight. Discussed with the patient and family at bedside in detail. Anticipate discharge tomorrow if neurologically stable. Time with Patient: Greater than 30
[2019-02-27 04:39] LABS: Cholesterol 198 mg/dL (<200); HDL Cholesterol 47 mg/dL (40-60); LDL Cholesterol,Calculated 123 mg/dL (0-99); Triglycerides 142 mg/dL (<150)
[2019-02-27 06:11] LABS: Glucose,Whole Blood 122 mg/dL (75-99)
[2019-02-27 07:51] LABS: Basophils % (A) 0 %; Eosinophils # (A) 0.3 k/uL (0-0.7); Eosinophils % (A) 4 %; HCT 37.6 % (34.0-46.0); Lymphocytes # (A) 1.8 k/uL (1.0-4.8); Lymphocytes % (A) 26 %; MCH 28.5 pg (25.0-35.0); MCV 88.9 fL (80.0-100.0); Mean Platelet Volume 7.1; Monocytes # (A) 0.4 k/uL (0-1.0); Monocytes % (A) 6 %; Neutrophils # (A) 4.3 k/uL (1.3-7.7); Neutrophils % (A) 62 %; Platelet Count 338 k/uL (150-450); RBC 4.23 m/uL (3.80-5.40); RDW 14.5 % (11.5-15.5)
[2019-02-27 08:03] LABS: African American GFR (CKD) >90 (>60 ml/min/1.73 sqM); Anion Gap 7 mmol/L; Blood Urea Nitrogen 11 mg/dL (7-17); Calcium 8.9 mg/dL (8.4-10.2); Carbon Dioxide 28 mmol/L (22-30); Chloride 106 mmol/L (98-107); Glucose 124 mg/dL (74-99); Potassium 3.7 mmol/L (3.5-5.1); Sodium 141 mmol/L (137-145)
[2019-02-27 11:14] VITALS: RESP 18
[2019-02-27] MEDS ORDERED: amLODIPine 10 MG TAB PO SCH (12:15)
[2019-02-27 12:17] LABS: Glucose,Whole Blood 116 mg/dL (75-99)
[2019-02-27] MEDS ORDERED: ASPIRIN 325 MG TAB PO SCH (15:53)
[2019-02-27] MEDS ORDERED: ACETAMINOPHEN TAB 325 MG TAB PO PRN (16:39)
[2019-02-27 17:20] LABS: Glucose,Whole Blood 99 mg/dL (75-99)
[2019-02-27 17:50] VITALS: BP 158/70; PULSE 71; TEMP 98
--- NOTE | 2019-02-28 08:06 | ECHOF ---
Referral Reason:Thrombus MEASUREMENTS -------- HEIGHT: 167.6 cm WEIGHT: 127.0 kg BP: 168/80 RVIDd: 3.6 cm (< 3.3) IVSd: 1.5 cm (0.6 - 1.1) LVIDd: 4.1 cm (3.9 - 5.3) LVPWd: 1.6 cm (0.6 - 1.1) IVSs: 2.2 cm LVIDs: 2.6 cm LVPWs: 1.8 cm LA Diam: 3.9 cm (2.7 - 3.8) LAESV Index (A-L): 33.79 ml/m Ao Diam: 3.4 cm (2.0 - 3.7) AV Cusp: 2.5 cm (1.5 - 2.6) MV EXCURSION: 18.395 mm (> 18.000) MV EF SLOPE: 59 mm/s (70 - 150) EPSS: 0.1 cm MV E Emeterio: 1.03 m/s MV DecT: 205 ms MV A Emeterio: 0.71 m/s MV E/A Ratio: 1.45 RAP: 5.00 mmHg RVSP: 27.93 mmHg FINDINGS -------- Sinus rhythm. This was a technically good study. The left ventricular size is normal. There is moderate concentric left ventricular hypertrophy. O verall left ventricular systolic function is normal with, an EF between 55 - 60 %. The right ventricle is mildly enlarged. LA is midly dilated 29-33ml/m2. The right atrium is normal in size. Interatrial and interventricular septum intact. Aortic valve is trileaflet and is mildly thickened. There is trace mitral regurgitation. Mild tricuspid regurgitation present. Right ventricular systolic pressure is normal at < 35 mmHg. The pulmonic valve was not well visualized. The aortic root size is normal. Normal inferior vena cava with normal inspiratory collapse consistent with estimated right atrial pre ssure of 5 mmHg. There is no pericardial effusion. CONCLUSIONS -------- 1. Sinus rhythm. 2. This was a technically good study. 3. The left ventricular size is normal. 4. There is moderate concentric left ventricular hypertrophy. 5. Overall left ventricular systolic function is normal with, an EF between 55 - 60 %. 6. The right ventricle is mildly enlarged. 7. LA is midly dilated 29-33ml/m2. 8. The right atrium is normal in size. 9. Interatrial and interventricular septum intact. 10. Aortic valve is trileaflet and is mildly thickened. 11. There is trace mitral regurgitation. 12. Mild tricuspid regurgitation present. 13. Right ventricular systolic pressure is normal at < 35 mmHg. 14. The pulmonic valve was not well visualized. 15. The aortic root size is normal. 16. Normal inferior vena cava with normal inspiratory collapse consistent with estimated right atrial pressure of 5 mmHg. 17. There is no pericardial effusion. COTTON CANDY MAKER: Kimmy Cano RDCS
[2019-02-28] MEDS ORDERED: MULTIVITAMINS, THERA 1 EACH TAB PO SCH (09:00)
== END 2019-02-27 18:35 | disposition home or self-care (01) ==
LOC: EC 12:25 → 3SCARD 15:52
PROVIDERS: ADMIT Internal Medicine; ATTEND Internal Medicine
DX: R47.1 Dysarthria and anarthria (principal); R47.01 Aphasia; R47.81 Slurred speech; S06.0X9A Concussion with loss of consciousness of unspecified duration, initial encounter; W19.XXXA Unspecified fall, initial encounter; R55 Syncope and collapse; E87.6 Hypokalemia; I10 Essential (primary) hypertension; E11.9 Type 2 diabetes mellitus without complications; E66.01 Morbid (severe) obesity due to excess calories; Z68.42 Body mass index [BMI] 45.0-49.9, adult; Z87.891 Personal history of nicotine dependence; Z98.84 Bariatric surgery status; Z86.19 Personal history of other infectious and parasitic diseases; Z83.3 Family history of diabetes mellitus; Z82.49 Family history of ischemic heart disease and other diseases of the circulatory system; Z80.0 Family history of malignant neoplasm of digestive organs; Z81.1 Family history of alcohol abuse and dependence; Z82.3 Family history of stroke; Z80.8 Family history of malignant neoplasm of other organs or systems; Z79.899 Other long term (current) drug therapy; R29.701 NIHSS score 1
CPT/HCPCS: 96360; 96361; 99291; 36415; 93005; 93306; 97161; 80061; 80053; 80048; 82550; 82553; 84484; 85025 ×2; 85610; 85730; 71046; 70496; 70450; 70498; G0378 ×2; Q9967

== ENCOUNTER → 2019-03-17 | Outpatient (CLI) | payer OTHER ==
--- NOTE | 2019-03-17 15:22 | US ---
EXAMINATION TYPE: US carotid duplex BILAT DATE OF EXAM: 03/17/2019 COMPARISON: NONE CLINICAL HISTORY: G45.9 Transient cerebral ischemic attack. TIA EXAM MEASUREMENTS: RIGHT: Peak Systolic Velocity (PSV) cm/sec ----- Right CCA: 173 ----- Right ICA: 73.4 ----- Right ECA: 98.5 ICA/CCA ratio: 0.4 RIGHT: End Diastole cm/sec ----- Right CCA: 9.1 ----- Right ICA: 26.5 ----- Right ECA: 0 LEFT: Peak Systolic Velocity (PSV) cm/sec ----- Left CCA: 104 ----- Left ICA: 110 ----- Left ECA: 78.1 ICA/CCA ratio: 1.0 LEFT: End Diastole cm/sec ----- Left CCA: 18.3 ----- Left ICA: 49.6 ----- Left ECA: 0 VERTEBRALS (direction of flow): Right Vertebral: Antegrade Left Vertebral: Antegrade Rhythm: Normal No significant stenosis seen IMPRESSION: 1. No significant flow-limiting stenosis. Criteria for Assigning % of Stenosis / Diameter reduction (Estimation based on the indirect measurements of the internal carotid artery velocities (ICA PSV). 1. Normal (no stenosis)=ICA PSV < 125 cm/s: ratio < 2.0: ICA EDV<40 cm/s. 2. Less than 50% stenosis=ICA PSV < 125 cm/s: ratio < 2.0: ICA EDV<40 cm/s. 3. 50 to 69% stenosis=ICA PSV of 125 to 230 cm/s: ration 2.0 ? 4.0: ICA EDV 40-100 cm/s. 4. Greater than 70% stenosis to near occlusion= ICA PSV > 230 cm/s: ratio > 4.0: ICA EDV > 100 cm/s. 5. Near occlusion= ICA PSV velocities may be low or undetectable: variable ratio and ICA EDV. 6. Total occlusion=unable to detect flow.
== END | disposition home or self-care (01) ==
LOC: RADUSWWP 14:22
PROVIDERS: ATTEND Family Medicine
DX: G45.9 Transient cerebral ischemic attack, unspecified (principal)
CPT/HCPCS: 93880

== ENCOUNTER → 2019-04-13 | Outpatient (CLI) | payer OTHER ==
--- NOTE | 2019-04-13 12:19 | P.BASOAP ---
Subjective Progress Note Date: 04/13/19 Principal diagnosis: Morbid obesity Patient returns for reevaluation. Last seen in January. Since that time the patient has had 2 episodes of syncope. She has had an extensive workup including blood sugar monitoring which is all turned out normal. She feels well. No nausea or vomiting. Heartburn controlled with antiacid therapy. 14 pound weight loss since last visit. Objective - Vital Signs Vital signs: Vital Signs Temp 98.9 F 04/13/19 12:00 Pulse 81 04/13/19 12:00 Resp 16 04/13/19 12:00 BP 170/92 04/13/19 12:00 Pulse Ox Intake & Output 04/12/19 04/13/19 04/13/19 18:59 06:59 18:59 Weight 119.295 kg - Exam Abdomen: Soft, nontender, nondistended Assessment/Plan (1) Morbid obesity Narrative/Plan: Patient doing well at this time. Her knee replacement is rescheduled for late May. Plan follow up here after that surgery is performed. Continue antiacids. Monitor for any additional syncopal episodes. Plan: Date: 04/13/19 Initial Weight: 169.598 kg Initial BMI: 59.4 Current Weight: 119.295 kg Current BMI: 41.8 Type of Surgery: Total Volume in Band: Previous Volume: Volume Removed: Volume Added: Band Size:
== END | disposition home or self-care (01) ==
CPT/HCPCS: 97803; G0463; 99211

== ENCOUNTER → 2019-07-27 | Outpatient (CLI) | payer OTHER ==
[2019-07-27 15:32] VITALS: BP 188/101; PULSE 81; RESP 16; TEMP 97.6; BMI 42.1
--- NOTE | 2019-07-27 16:40 | P.BASOAP ---
Subjective Progress Note Date: 07/27/19 Principal diagnosis: Morbid obesity Patient returns for reevaluation. She is 1 year post sleeve gastrectomy. She was having some syncopal episodes that appear to be related to her antihypertensives. They have resolved after discontinuing those medications. Weight is about the same. She has been exercising more. Only a few episodes of heartburn since last visit. Still has dysphagia to be products. Still having skin issues beneath her pannus requiring daily application of various topical agents. Objective - Vital Signs Vital signs: Vital Signs Temp 97.6 F 07/27/19 15:29 Pulse 81 07/27/19 15:29 Resp 16 07/27/19 15:29 BP 188/101 07/27/19 15:29 Pulse Ox Intake & Output 07/26/19 07/27/19 07/27/19 18:59 06:59 18:59 Weight 120.202 kg - Exam Abdomen: Soft, nontender, nondistended Assessment/Plan (1) Morbid obesity Narrative/Plan: Overall patient is doing well. Continue dietary and exercise regimen. Check annual labs at this time. Follow-up 3 months. Plan: Date: 07/27/19 Initial Weight: 169.598 kg Initial BMI: 59.4 Current Weight: 120.202 kg Current BMI: 42.1 Type of Surgery: Total Volume in Band: Previous Volume: Volume Removed: Volume Added: Band Size:
[2019-07-27 16:44] LABS: HCT 36.7 % (34.0-46.0); HGB 12.1 gm/dL (11.4-16.0); MCH 28.9 pg (25.0-35.0); MCHC 32.9 g/dL (31.0-37.0); MCV 87.8 fL (80.0-100.0); Mean Platelet Volume 6.5; Platelet Count 324 k/uL (150-450); RBC 4.18 m/uL (3.80-5.40); RDW 13.2 % (11.5-15.5); WBC 5.4 k/uL (3.8-10.6)
[2019-07-28 01:40] LABS: ALT 27 U/L (8-44); AST 25 U/L (13-35); African American GFR (CKD) 98.9 (60.0-200.0); Albumin/Globulin Ratio 1.62 (1.60-3.17); Alkaline Phosphatase 85 U/L (41-126); BUN/Creat Ratio 18.75 Ratio (12.00-20.00); Calcium 9.2 mg/dL (8.7-10.3); Chloride 102 mmol/L (96-109); Folate, Serum >24.0 ng/mL; Globulin 2.6 g/dL (1.6-3.3); Glucose 122 mg/dL (70-110); Iron 20 ug/dL (50-170); Non-African American GFR(CKD) 85.4 (60.0-200.0); Potassium 3.1 mmol/L (3.5-5.5); Sodium 142 mmol/L (135-145); Total Bilirubin 0.2 mg/dL (0.2-1.2); Total Protein 6.8 g/dL (6.2-8.2)
== END ==
LOC: BARWHC3 15:13
PROVIDERS: ATTEND Surgery
DX: E66.01 Morbid (severe) obesity due to excess calories (principal); K90.89 Other intestinal malabsorption; E55.9 Vitamin D deficiency, unspecified; Z98.84 Bariatric surgery status; Z68.41 Body mass index [BMI] 40.0-44.9, adult
CPT/HCPCS: 84425; 80053; 82607; 82746; 83540; 85027; 82306; 36415; G0463; 99211

== ENCOUNTER → 2020-03-16 | Outpatient (CLI) | payer OTHER ==
[2020-03-16 15:16] LABS: Basophils % (A) 1 %; Eosinophils # (A) 0.3 k/uL (0-0.7); Eosinophils % (A) 6 %; HCT 40.1 % (34.0-46.0); HGB 13.5 gm/dL (11.4-16.0); Lymphocytes # (A) 2.3 k/uL (1.0-4.8); Lymphocytes % (A) 41 %; MCH 31.5 pg (25.0-35.0); MCHC 33.7 g/dL (31.0-37.0); MCV 93.6 fL (80.0-100.0); Mean Platelet Volume 7.2; Monocytes # (A) 0.4 k/uL (0-1.0); Monocytes % (A) 7 %; Neutrophils # (A) 2.5 k/uL (1.3-7.7); Neutrophils % (A) 44 %; Platelet Count 259 k/uL (150-450); RBC 4.29 m/uL (3.80-5.40); WBC 5.7 k/uL (3.8-10.6)
[2020-03-17 01:32] LABS: Hemoglobin A1C 6.2 % (4.0-6.0)
[2020-03-17 01:37] LABS: ALT 27 U/L (8-44); AST 25 U/L (13-35); African American GFR (CKD) 116.3 (60.0-200.0); Albumin/Globulin Ratio 1.48 (1.60-3.17); Alkaline Phosphatase 71 U/L (41-126); BUN/Creat Ratio 22.86 Ratio (12.00-20.00); Calcium 9.2 mg/dL (8.7-10.3); Chloride 104 mmol/L (96-109); Chol/HDL Ratio 3.94; Cholesterol 205 mg/dL (0-200); Globulin 2.7 g/dL (1.6-3.3); Glucose 96 mg/dL (70-110); Iron 119 ug/dL (50-170); LDL Cholesterol,Calculated 124.2 mg/dL (0.0-131.0); Non-African American GFR(CKD) 100.3 (60.0-200.0); Potassium 3.9 mmol/L (3.5-5.5); Sodium 141 mmol/L (135-145); Total Bilirubin 0.7 mg/dL (0.3-1.2); Total Protein 6.7 g/dL (6.2-8.2)
[2020-03-17 02:13] LABS: Folate, Serum >24.0 ng/mL
== END | disposition home or self-care (01) ==
LOC: LABWHC1 14:13
PROVIDERS: ATTEND Surgery
DX: Z00.00 Encounter for general adult medical examination without abnormal findings (principal); E11.9 Type 2 diabetes mellitus without complications; E78.2 Mixed hyperlipidemia; E55.9 Vitamin D deficiency, unspecified
CPT/HCPCS: 36415; 80053; 80061; 82306; 82607; 82746; 83036; 83540; 84425; 84443; 85025

== ENCOUNTER → 2020-03-21 | Outpatient (CLI) | payer OTHER ==
[2020-03-21 13:23] VITALS: PULSE 70; RESP 16; TEMP 98.1; BMI 44.3
--- NOTE | 2020-03-21 20:16 | PN ---
PROGRESS NOTE DATE OF SERVICE: 03/21/2020. CHIEF COMPLAINT: GERD. INTERVAL HISTORY: Patient returns for re-evaluation. She has gained 14 pounds since her last visit. Patient has been working quite a bit and her exercise has decreased as a result of that. She is now off work for the next 6 weeks. Denies nausea, vomiting. No GERD symptoms. Tolerating most foods. [QAMARKER] PHYSICAL EXAMINATION: Abdomen is soft, nondistended, nontender. Mild skin excoriation. PLAN: Continue increasing exercise. Monitor oral intake. Follow up in 2 months. MMODL / IJN: [id number] /
== END | disposition home or self-care (01) ==
LOC: BARWHC3 12:56
PROVIDERS: ATTEND Surgery
DX: K21.9 Gastro-esophageal reflux disease without esophagitis (principal)
CPT/HCPCS: 99211

== ENCOUNTER → 2020-05-15 | Outpatient (CLI) | payer OTHER | END | disposition home or self-care (01) | LOC: LABPAT 11:08 | PROVIDERS: ATTEND Orthopaedic Surgery | DX: Z01.812 Encounter for preprocedural laboratory examination (principal) | CPT/HCPCS: 87070 ==

== ENCOUNTER 2020-06-14 07:55 | Inpatient (IN) | payer OTHER ==
[2020-06-08 11:23] VITALS: BMI 45.1
--- NOTE | 2020-06-13 16:43 | HP ---
HISTORY AND PHYSICAL DATE OF SERVICE: 06/14/2020 Nichelle Munoz is a 50-year-old patient seen with progressive left knee pain. Treatment options were discussed. She elected to proceed with left total knee arthroplasty. Consent regarding the procedure was obtained. Clearance was by Dr. Tubbs. PAST MEDICAL HISTORY: Hypertension, obr-pmjyonj-siesssphf diabetes. PAST SURGICAL HISTORY: Noncontributory. DAILY MEDICATIONS: Amlodipine, ibuprofen. ALLERGIES: None. SOCIAL HISTORY: She denies current tobacco use. PHYSICAL EVALUATION OF THE LEFT KNEE: Range of motion is -12 to 100. Mild effusion. Tenderness medial joint line. Crepitus on the medial patellofemoral compartments range of motion. There is pain with patellofemoral compression. Ligaments stable. Hip rotation without pain. Distal neurovascular exam is intact. LEFT KNEE RADIOGRAPHS: Reveal severe osteoarthritic changes. IMPRESSION: 1. Left knee osteoarthritis. 2. Hypertension. 3. Aee-rmzjqmr-pcjqnqoaf diabetes. PLAN: Left total knee arthroplasty. MMODL / IJN: [id number] /
[~2020-06-14 07:55] MED LIST changes: +ACETAMINOPHEN TAB 500 MG TAB PO ONE; -ENOXAPARIN 40 MG/0.4 ML SYRINGE SQ ONE; +HYDROmorphone 0.5 MG/0.5 ML SYRINGE IVP PRN; +LACTATED RINGERS 1,000 ML IV SCH; +LIDOCAINE 1% (10MG/ML) FOR IV START INTRADERMA PRN; -LIDOCAINE 1% 20 ML VIAL (10MG/ML) FOR IV START INTRADERMA PRN; +MELOXICAM 7.5 MG TAB PO ONE; +MIDAZOLAM 2 MG/2 ML VIAL IV PRN; -SCOPOLAMINE 1.5MG/72HR PATCH TRANSDERM ONE; +TRANEXAMIC ACID 1,000 MG in SODIUM CHLORIDE 0.9% 100 ML IVPB ONE; +ceFAZolin 3 GM in SODIUM CHLORIDE 0.9% 100 ML IVPB ONE
[2020-06-14 08:57] LABS: Glucose,Whole Blood 121 mg/dL (75-99)
[2020-06-14] MEDS ORDERED: fentaNYL (PF) 50 MCG/ML 2 ML AMP IV ONE (09:02)
[2020-06-14] MEDS ORDERED: ROPIVACAINE 0.2%-NS ON-Q PUMP 1,090 MG, EMPTY PAIN BALL 1 EACH MISCELLANE PRN (09:26)
--- NOTE | 2020-06-14 09:29 | P.ANPRN ---
Procedure Note - Anesthesia - Nerve Block Performed Left Adductor Canal Time Out Performed: Yes (:) Date of Procedure: 06/14/20 Procedure Start Time: Procedure Stop Time: Location of Patient: PreOp Indication: Acute Post-Operative Pain, Requested by Surgeon (Dr Wayne) Sedation Type: Sedate with meaningful contact maintained Preparation: Sterile Prep, Sterile Dressing Position: Supine Catheter: Indwelling Needle Types: Pajunk Needle Gauge: 21 Ultrasound used to visualize needle placement: Yes Ultrasound used to observe medication spread: Yes Injectate: 0.5% Ropivacaine (see comment for volume) (20cc) Blood Aspirated: No Pain Paresthesia on Injection Noted: No Resistance on Injection: Normal Image Stored and Saved: Yes Events: Uneventful and Well Tolerated
[2020-06-14] MEDS ORDERED: LABETALOL 5 MG/ML VIAL MDV ONE (09:58)
[2020-06-14] MEDS ORDERED: MIDAZOLAM 2 MG/2 ML VIAL ONE (09:58)
[2020-06-14] MEDS ORDERED: SODIUM CHLORIDE 0.9% 100 ML BAG ONE (09:58)
[2020-06-14] MEDS ORDERED: hydrALAZINE HCL 20 MG/ML 1 ML VIAL ONE (09:58)
[2020-06-14] MEDS ORDERED: fentaNYL (PF) 50 MCG/ML 2 ML AMP ONE (09:58)
[2020-06-14] MEDS ORDERED: PROPOFOL 10 MG/ML 20 ML VIAL IV ONE (09:58)
[2020-06-14] MEDS ORDERED: TRANEXAMIC ACID 1,000 MG/10 ML VIAL ONE (09:58)
[2020-06-14] MEDS ORDERED: HYDROmorphone (PF) 1 MG/ML ONE (09:58)
[2020-06-14] MEDS: ROPIVACAINE 246.25 MG, EPINEPHrine 0.5 MG, KETOROLAC 30 MG, cloNIDine HCL/PF 80 MCG, WA... MISCELLANE ONE ×10 (10:39→11:17)
[2020-06-14] MEDS ORDERED: LACTATED RINGERS 1,000 ML IV ONE (11:11)
[2020-06-14] MEDS ORDERED: HYDROcodone/APAP 5-325MG 1 EACH TAB PO PRN (12:19)
[2020-06-14] MEDS ORDERED: NALOXONE 0.4 MG/ML 1 ML VIAL IV PRN (12:19)
[2020-06-14] MEDS ORDERED: HYDROmorphone 0.5 MG/0.5 ML SYRINGE IVP PRN (12:19)
[2020-06-14] MEDS ORDERED: HYDROmorphone 1 MG/ML 1 ML SYRINGE IVP PRN (12:19)
[2020-06-14] MEDS ORDERED: ONDANSETRON 4 MG/2 ML VIAL IVP PRN (12:19)
--- NOTE | 2020-06-14 12:19 | P.OP ---
Date of Procedure: 06/14/20 Preoperative Diagnosis: Left knee osteoarthritis Postoperative Diagnosis: Left knee osteoarthritis Procedure(s) Performed: Left total knee arthroplasty Implants: 1. Depuy attune size 4 narrow left cruciate retaining cemented femur 2. Depuy attune size 3 fixed bearing cemented revision tibial baseplate with a 14 mm x 50 mm stem 3. Depuy attune size 4 fixed bearing cruciate retaining 14 mm polythene tibial insert 4. Depuy attune 32 mm all polyethylene cemented patella Anesthesia: regional (adductor canal catheter), local, spinal Surgeon: Matthieu Wayne Mechanic Recovery #1: Juan J Vieyra Estimated Blood Loss (ml): 55 Pathology: other (bone) Condition: stable Disposition: PACU Indications for Procedure: 50-year-old patient seen with symptomatic left knee osteoarthritis. After treatment options were discussed with her, she elected to proceed with total knee arthroplasty. Operative Findings: see description of procedure Description of Procedure: Patient was taken to the operative suite after having an adductor canal catheter placed by the department of anesthesia. Patient underwent a spinal anesthetic by the department of anesthesia. Patient was given preoperative IV intake antibiotics and TXA. A well-padded tourniquet was placed about the left lower extremity. The lower extremity was then prepped and draped in the normal sterile orthopedic fashion. The extremity was elevated, a tourniquet was insufflated to 300. A standard anterior incision was made sharply through skin. Dissection was taken down through the subcutaneous soft tissues down to the extensor mechanism. A medial arthrotomy was performed, patella was everted and knee was flexed. There was advanced osteoarthritis noted. I introduced my distal intramedullary femoral drill. I then introduced the distal femoral cutting jig. Kiran DENNIS secured the cutting jig with 2 pins. I held retractors in position while Kiran DENNIS performed the distal femoral resection through the guide area we now removed her distal femoral cutting guide. We now placed our 4-in-1 femoral cutting block and positioned and it was secured with 2 pins by Kiran DENNIS while I held the block in position. The distal femoral finishing was now completed. A proximal tibial cutting guide was positioned. I held the guide in the appropriate position with both hands well Kiran DENNIS inserted stabilizing pins into the guide. Proximal tibial cut was made. We now placed a trial femoral component into position, along with an appropriate size tibial tray and insert. We now took the knee through range of motion and had full extension good flexion and good overall soft tissue balance noted. The patella was everted and stabilized with 2 towel clips held by Kiran DENNIS while I performed a flush with patellar quad tendon utilizing a fresh sawblade. We templated the patella, appropriate drill holes were made. An appropriate trial patella was positioned, knee was taken through full range of motion with the patella tracking very nicely. The trial patella was removed. Drill holes were made through the femoral component. All trial components were removed after marking off the appropriate rotation of the tibia. Retractors were now positioned along the proximal tibia. An appropriate keel punch was made with the appropriate size tibial guide by myself on Kiran DENNIS assisted by holding retractors. At this point appropriate size implants were chosen and opened. The joint was irrigated copiously with pulse lavage mechanical irrigation. The posterior capsule was infiltrated with local analgesic. The wound was irrigated with pulse lavage mechanical irrigation. We mixed antibiotic methylmethacrylate. We placed the knee into flexion. We placed multiple retractors assisted by Kiran DENNIS to expose the proximal tibia. Once the methyl methacrylate was ready, the tibial component was cemented into place removing any excess methylmethacrylate form by both myself and Kiran DENNIS. The femoral component was cemented into place removing the removing any excess methylmethacrylate performed by both myself and Kiran DENNIS. We then inserted the appropriate size polyethylene tibial insert. We made sure that it was locked into position. We took the knee into full extension, and then back in a flexion making sure we had removed any excess methylmethacrylate. The patellar component was then cemented down and secured with clamp. Excess methylmethacrylate removed. We kept the knee in full extension, patellar clamp in position until methylmethacrylate had hardened. Once it had hardened the patellar clamp was removed. The knee was taken through full range of motion. The patella tracked nicely. There was good soft tissue balancing. The tourniquet was now released. Additional hemostasis was achieved via electrocautery. A second gram of TXA was given. The wound again was irrigated with pulse lavage mechanical irrigation. The superficial soft tissues were infiltrated local analgesic. The extensor mechanism was repaired with Vicryl. We checked the repair with range of motion and it was stable. The subcutaneous soft tissues were repaired with Vicryl in layers. The skin was approximated with pernio/Dermabond. Sterile dressings were applied followed by loose web roll and Wily bandage. The patient was transferred to a bed, and taken to recovery in stable and satisfactory condition. Kiran EDNNIS assisted with this complex procedure.
[2020-06-14 12:44] LABS: Glucose,Whole Blood 127 mg/dL (75-99)
[2020-06-14] MEDS ORDERED: hydrALAZINE HCL 20 MG/ML 1 ML VIAL IVP ONE (13:12)
--- NOTE | 2020-06-14 13:13 | XR ---
EXAMINATION TYPE: XR knee limited LT DATE OF EXAM: 06/14/2020 COMPARISON: NONE TECHNIQUE: Two views submitted HISTORY: Post op FINDINGS: There is a prosthetic knee in near anatomic alignment. There is soft tissue edema and emphysema. Lee rgical juan noted. IMPRESSION: 1. Postoperative change. Appears in near-anatomic alignment
[2020-06-14] MEDS: LACTATED RINGERS 1,000 ML IV SCH (14:51)
[2020-06-14] MEDS: SENNOSIDES-DOCUSATE SODIUM 1 EACH TAB PO SCH (19:22)
[2020-06-14] MEDS: ceFAZolin 3 GM in SODIUM CHLORIDE 0.9% 100 ML IVPB SCH (19:23)
[2020-06-15] MEDS: ENOXAPARIN 30 MG/0.3 ML SYRINGE SQ SCH ×3 (00:12→21:04)
[2020-06-15] MEDS: HYDROmorphone 0.5 MG/0.5 ML SYRINGE IVP PRN ×2 (02:17→08:15)
[2020-06-15] MEDS ORDERED: ceFAZolin 3 GM in SODIUM CHLORIDE 0.9% 100 ML IVPB SCH (04:15)
[2020-06-15] MEDS: ceFAZolin 3 GM in SODIUM CHLORIDE 0.9% 100 ML IVPB SCH (04:31)
--- NOTE | 2020-06-15 04:33 | CONS ---
CONSULTATION DATE OF SERVICE: 06/14/2020 REASON FOR CONSULTATION: Advice regarding diabetes mellitus and other multiple medical history, requested by Dr. Wayne. HISTORY OF PRESENT ILLNESS: This 50-year-old woman with a past medical history of multiple medical problems including diabetes mellitus, hypertension, history of renal disease, history of bariatric surgery being followed by Dr. Tubbs in the outpatient setting underwent a left total knee arthroplasty by Dr. Wayne for severe DJD. There is no history of fever or rigors. No history of headache, loss of consciousness, seizures, chest pain, palpitations. PAST MEDICAL HISTORY: Diabetes mellitus, hypertension, renal disease, history of bariatric surgery, orthopedic surgery. MEDICATIONS: Medications are home medications: Multivitamin gummies, ibuprofen, iron. ALLERGIES: None. FAMILY HISTORY: History of cancer, diabetes, hypertension, colon cancer. SOCIAL HISTORY: Previous history of smoking. No history of current smoking or alcohol intake. REVIEW OF SYSTEMS: ENT: No diminished hearing or diminished vision. CARDIOVASCULAR SYSTEM: No angina or palpitations. RESPIRATORY SYSTEM: No cough or hemoptysis. GI: No nausea. : No dysuria. NERVOUS SYSTEM: No numbness or weakness. ALLERGY/IMMUNOLOGY: No asthma or hay fever. MUSCULOSKELETAL: As mentioned earlier. HEMATOLOGY/ONCOLOGY: No history of anemia. ENDOCRINE: No history of diabetes or hypothyroidism. CONSTITUTIONAL: As mentioned earlier. DERMATOLOGY: Negative. RHEUMATOLOGY: Negative. PSYCHIATRY: As mentioned earlier. PHYSICAL EXAMINATION: The patient is alert and oriented x3. Pulse is 92, blood pressure 169/82, respiration 17, temperature 97.8, pulse ox 97% on room air. HEENT: Conjunctivae normal. Oral mucosa moist. NECK: No jugular venous distention. No carotid bruit. No lymph node enlargement. CARDIOVASCULAR: S1, S2 muffled. RESPIRATORY: Breath sounds diminished at the bases. No rhonchi, no crackles. ABDOMEN: Soft, nontender. No mass palpable. LEGS: Status post left knee surgery. NERVOUS SYSTEM: Higher function as mentioned. Moves all 4 limbs. No focal motor or motor deficits. LYMPHATICS: No lymphadenopathy of the neck, axillae or groin. SKIN: No ulcer, rash or bleeding. JOINTS: As mentioned earlier. LABS: Glucose 121, 127, otherwise previous preop labs are hematology is normal, coags are normal. Chemistry was also reviewed. ASSESSMENT: 1. Status post left total knee joint arthroplasty. 2. Diabetes mellitus type 2. 3. Hypertension. 4. History of renal disease. 5. History of diet-controlled diabetes mellitus. 6. History of bariatric surgery. 7. History of motion sickness. 8. History of obesity with body mass index 45.5. 9. FULL CODE. RECOMMENDATIONS AND DISCUSSION: This 50-year-old woman who presented with multiple complex medical issues, we will monitor the patient closely. Continue the current medications, continue symptomatic treatment. Will initiate the home medications, DVT prophylaxis and incentive spirometry. Will follow the patient closely. Patient may be asked to follow up with p.r.n. blood pressure medications. Patient may be asked to follow up with Dr. Tubbs in the outpatient setting. We will follow the patient closely. Thank you Dr. Wayne for letting us participate in the care of this patient. ROSIE / CHANDU: [id number] /
[2020-06-15] MEDS: LACTATED RINGERS 1,000 ML IV SCH ×3 (04:34→16:22)
[2020-06-15 06:32] LABS: Basophils % (A) 0 %; Eosinophils % (A) 0 %; HCT 36.6 % (34.0-46.0); HGB 12.5 gm/dL (11.4-16.0); Lymphocytes # (A) 1.8 k/uL (1.0-4.8); Lymphocytes % (A) 17 %; MCH 32.4 pg (25.0-35.0); MCV 95.1 fL (80.0-100.0); Monocytes # (A) 0.6 k/uL (0-1.0); Monocytes % (A) 6 %; Neutrophils % (A) 76 %; Platelet Count 250 k/uL (150-450); RBC 3.85 m/uL (3.80-5.40); RDW 12.6 % (11.5-15.5); WBC 10.5 k/uL (3.8-10.6)
[2020-06-15] MEDS: MULTIVITAMINS, THERA 1 EACH TAB PO SCH (08:16)
[2020-06-15] MEDS: FERROUS SULFATE 325 MG TAB PO SCH (08:16)
[2020-06-15] MEDS: HYDROcodone/APAP 5-325MG 1 EACH TAB PO PRN ×3 (10:01→21:03)
--- NOTE | 2020-06-15 12:19 | P.PN ---
Subjective Progress Note Date: 06/15/20 Principal diagnosis: Status post left total knee arthroplasty Patient evaluated today at bedside, she is sleeping, she is easily awoken. Patient states that the pain is increased significantly today. She had a very difficult time with physical therapy when he came ambulation. Currently she denies any lightheadedness, headaches, chest pain, shortness of breath, nausea or vomiting. Objective - Vital Signs Vital signs: Vital Signs Temp 97.7 F 06/15/20 07:00 Pulse 76 06/15/20 07:00 Resp 20 06/15/20 07:00 BP 192/92 06/15/20 07:00 Pulse Ox 98 06/15/20 07:00 Intake & Output 06/14/20 06/15/20 06/15/20 18:59 06:59 18:59 Intake Total 1550 Output Total 55 Balance 1495 Weight 127.9 kg Intake: IV 1550 Output: Estimated Blood Loss 55 Other: Voiding Method Toilet Toilet # Voids 2 - Exam Left lower extremity: Incision is clean, dry, and intact. The foam dressing is in good condition. There is minimal soft tissue swelling and ecchymosis surrounding the medial and lateral aspects of the incision. Calf is soft, no tenderness with palpation. Plantar flexion, dorsiflexion, EHL, FHL are intact. Sensory exam to light touch throughout the extremity is intact, dorsal pedis pulses 2+. - Labs CBC & Chem 7: 06/15/20 05:51 Labs: Abnormal Lab Results - Last 24 Hours (Table) 06/14/20 06/15/20 Range/Units 12:41 05:51 Neutrophils # 8.0 H (1.3-7.7) k/uL POC Glucose (mg/dL) 127 H (75-99) mg/dL Assessment and Plan Assessment: Status post left total knee arthroplasty Plan: Pain control, continue current pain regimen DVT prophylaxis, continue current medication Continue with physical therapy Wound care instructions discussed Medical recommendations Placement type will be switched inpatient at this time due to pain control and difficulty with ambulation. Hopeful discharge home in the next day or 2. Time with Patient: Less than 30
--- NOTE | 2020-06-15 12:31 | P.PN ---
Progress Note - Text Progress Note Date: 06/15/20 patient was seen at 6 AM this morning patient is POD 1 left total knee arthroplasty, with an adductor canal catheter. pain is well controlled 2-11/08 patient denies any excessive numbness or weakness in left lower extremity no evidence of redness or discharge from the catheter insertion site. patient wioll remove catheter once the on-Q pump id empty
--- NOTE | 2020-06-15 16:22 | PN ---
PROGRESS NOTE DATE OF SERVICE: 06/15/2020 This 50-year-old woman who was admitted with left total knee arthroplasty is improving significantly. No chest pain. No palpitations. No fever. The patient is complaining of some pain. PHYSICAL EXAMINATION: Alert and oriented x3. Pulse 78, blood pressure 192/90, respiration 20, temperature 97.7, pulse ox 93% on room air. HEENT: Conjunctivae normal. NECK: No jugular venous distention. CARDIOVASCULAR SYSTEM: S1, S2 muffled. RESPIRATORY SYSTEM: Breath sounds diminished at the bases. A few rhonchi. No crackles. ABDOMEN: Soft, non-tender. LEGS: No edema. No swelling. NERVOUS SYSTEM: No focal deficit. LABS: Labs at this time show WBC 10.5. ASSESSMENT: 1. Status post left total knee arthroplasty. 2. Diabetes mellitus, type 2. 3. relative hypertension. 4. Continued pain. 5. History of renal disease. 6. History of diet-controlled diabetes mellitus, type 2. 7. History of bariatric surgery. 8. History of motion sickness. 9. History of obesity with body mass index of 45.5. 10.FULL CODE. RECOMMENDATIONS AND DISCUSSION: In this 50-year-old woman who presented with multiple medical problems, we will monitor the patient closely, continue the current medications, continue with symptomatic treatment. Otherwise at this time I would recommend pain management. Also recommend adding Norvasc to the current regimen of blood pressure medications. Closely monitor. Further recommendations to follow. MMSAMANTHAL / TAWANDAN: [id number] / MTDD
[2020-06-15] MEDS: amLODIPine 5 MG TAB PO SCH (17:02)
[2020-06-15 17:37] LABS: Glucose,Whole Blood 149 mg/dL (75-99)
[2020-06-15 20:47] LABS: Glucose,Whole Blood 146 mg/dL (75-99)
[2020-06-15] MEDS: SENNOSIDES-DOCUSATE SODIUM 1 EACH TAB PO SCH (22:03)
[2020-06-16 01:30] VITALS: RESP 15
[2020-06-16] MEDS: HYDROcodone/APAP 5-325MG 1 EACH TAB PO PRN ×2 (02:23→08:26)
[2020-06-16] MEDS: LACTATED RINGERS 1,000 ML IV SCH (06:12)
[2020-06-16] MEDS: amLODIPine 5 MG TAB PO SCH (08:25)
[2020-06-16] MEDS: MULTIVITAMINS, THERA 1 EACH TAB PO SCH (08:25)
[2020-06-16] MEDS: FERROUS SULFATE 325 MG TAB PO SCH (08:25)
[2020-06-16] MEDS: ENOXAPARIN 30 MG/0.3 ML SYRINGE SQ SCH (08:25)
[2020-06-16 08:32] VITALS: BP 171/91; PULSE 89; TEMP 98.2
--- NOTE | 2020-06-16 09:20 | P.PN ---
Subjective Progress Note Date: 06/16/20 Principal diagnosis: Status post left total knee arthroplasty Patient evaluated today at bedside, she is resting comfortably. She's feeling a lot better today with regards to pain and ambulation. She currently denies any chest pain, shortness of breath, nausea vomiting, fever or chills. Objective - Vital Signs Vital signs: Vital Signs Temp 98.2 F 06/16/20 07:00 Pulse 89 06/16/20 07:00 Resp 15 06/16/20 00:54 BP 171/91 06/16/20 07:00 Pulse Ox 98 06/16/20 07:00 Intake & Output 06/15/20 06/16/20 06/16/20 18:59 06:59 18:59 Other: Voiding Method Toilet Bedside Commode Bedside Commode # Voids 1 1 - Exam Left lower extremity: Incision is clean, dry, and intact. The foam dressing is in good condition. There is minimal soft tissue swelling and ecchymosis surrounding the medial and lateral aspects of the incision. Calf is soft, no tenderness with palpation. Plantar flexion, dorsiflexion, EHL, FHL are intact. Sensory exam to light touch throughout the extremity is intact, dorsal pedis pulses 2+. - Labs CBC & Chem 7: 06/15/20 05:51 Labs: Abnormal Lab Results - Last 24 Hours (Table) 06/15/20 06/15/20 Range/Units 17:36 20:45 POC Glucose (mg/dL) 149 H 146 H (75-99) mg/dL Assessment and Plan Assessment: Status post left total knee arthroplasty Plan: Pain control, plan for discharge home on [place] 5 mg/5 mg DVT prophylaxis, Eliquis 2.5 mg for 2 weeks Home physical therapy and nursing after discharge Wound care instructions discussed Medical recommendations Plan for discharge home today Time with Patient: Less than 30
--- NOTE | 2020-06-16 09:23 | P.DS ---
Providers Date of admission: 06/15/20 11:08 Expected date of discharge: 06/16/20 Attending physician: Matthieu Wayne Consults: 06/14/20 12:19 Consult Physician Routine Consulting Provider: Bindu Nye Consult Reason/Comments: medical management Do you want consulting provider notified?: Yes Primary care physician: Fernando Mccollum [facility] [place] Hospital Course: Date of admission: 06/14/2020 Date of discharge: 06/16/2020 Admission diagnosis: Status post left total knee arthroplasty Discharge diagnosis: Same Attending physician: Dr. Wayne Surgical procedures: Left total knee arthroplasty Brief history: Patient is a 50-year-old female with a history of progressive primary left knee osteoarthritis. At this point patient has failed conservative treatment measures and has opted to proceed with a elective left total knee arthroplasty. Hospital course: Details of patient's surgery can be found in operative report. Patient tolerated the procedure well and was subsequently transported to orthopedic floor. Patient's orthopeidc and medical care was provided daily. Patient had daily laboratory tests performed for evaluation of overall blood counts. Patient had daily physical therapy to include strengthening range of motion as well as education with walker ambulation. Patient was treated with Lovenox for their postoperative DVT prophylaxis during their inpatient stay. Patient was noted to have a relatively uneventful postoperative course. Patient reported satisfactory pain control with oral pain medications by postoperative day 0. Patient showed satisfactory progress with physical therapy. Patient moved steadily through the program and had no difficulty meeting the goals by postoperative day 2. Given patient's otherwise satisfactory course and having met physical therapy goals, plan is to discharge patient home on postoperative day 2. Discharge condition/disposition: Patient will be discharged home in stable condition. Discharge medications: Instructions are given on resumption of patient's normal daily medications per primary care recommendation, in addition patient will be prescribed [place] 5 mg/325 mg, Eliquis 2.5 mg. Discharge instructions: 1. Wound care and infection precautions, keep incision dry and covered while showering, no lotions, creams, moisturizers. No soaking, tubs, pools, hottubs. Do not scrub over the incision. 2. Weight-bear as tolerated with walker / cane until follow-up. Okay to remove bandage on 06/24/2020 3. Ice and elevate when necessary. Do not exceed 20 minutes per hour with ice pack. 4. Utilize compression sleeve until seen at first follow up appointment. 5. Visiting nursing care. 6. Home physical therapy including home CPM. 7. Pain meds and anticoagulants per prescription. 8. Pain medication has potential to cause constipation. Increase oral fluid and fiber intake. Contact primary care provider if you have not had a bowel movement within 48 hours after discharge 9. No anti-inflammatory medication until discussed at first post operative visit, this including Motrin, Aleve, Mobic, Diclofenac. 10. Follow up in office at 2 weeks postop with Kiran Vieyra PA-C 11. Follow up with your primary care doctor 7-10 days after discharge. 12. Contact [facility] with any questions, . Procedures: Left total knee arthroplasty Patient Condition at Discharge: Good Plan - Discharge Summary Discharge Rx Participant: Yes New Discharge Prescriptions: New Apixaban [Eliquis] 2.5 mg PO BID #60 tab Hydrocodone/Acetaminophen [[place] 5-325] 1 - 2 each PO Q6HR PRN #56 tab PRN Reason: Pain No Action Multivitamin [Multivitamins Adult Gummies] 2 tab PO DAILY Ibuprofen 600 mg PO BID Ferrous Sulfate [Iron] 650 mg PO DAILY Discharge Medication List Multivitamin [Multivitamins Adult Gummies] 2 tab PO DAILY 02/26/19 [History] Ferrous Sulfate [Iron] 650 mg PO DAILY 06/08/20 [History] Ibuprofen 600 mg PO BID 06/08/20 [History] Apixaban [Eliquis] 2.5 mg PO BID #60 tab 06/16/20 [Rx] Hydrocodone/Acetaminophen [[place] 5-325] 1 - 2 each PO Q6HR PRN #56 tab 06/16/20 [Rx] Follow up Appointment(s)/Referral(s): [facility] [NON-STAFF] - As Needed (Continuous Passive Motion knee machine and walker) [facility], [NON-STAFF] - As Needed Juan J Vieyra PAC [PHYSICIAN GROUNDSKEEPER] - 2 Weeks Activity/Diet/Wound Care/Special Instructions: Orthopedic Discharge Instructions: 1. Wound care and infection precautions, keep incision dry and covered while showering, no lotions, creams, moisturizers. No soaking, pools, hot tubs. Do not scrub over incision. 2. Weight-bear as tolerated with walker / cane until follow-up. Okay to remove bandage on 06/24/2020 3. Ice and elevate when necessary. Do not exceed 20 minutes per hour with ice pack. 4. Utilize compression sleeve until seen at first follow up appointment. 5. Pain meds and anticoagulants per prescription. 6. Pain medication has potential to cause constipation. Increase oral fluid and fiber intake. Contact primary care provider if you have not had a bowel movement within 48 hours after discharge. 7. No anti-inflammatory medication until discussed at first post operative visit, this including Motrin, Aleve, Mobic, Diclofenac. 8. Follow up in office at 2 weeks postop with Kiran Vieyra PA-C 9. Follow up with your primary care doctor 7-10 days after discharge. 10. Contact [facility] with any questions, . Discharge Disposition: HOME WITH HOME HEALTH SERVICES
--- NOTE | 2020-06-16 17:38 | PN ---
PROGRESS NOTE DATE OF SERVICE: 06/16/2020 This 50-year-old woman who was admitted with left total knee arthroplasty is improving significantly. No chest pain. No palpitations. No fever. PHYSICAL EXAMINATION: Alert and oriented x3. Pulse is 89. Blood pressure 171/90, respiration 15, temperature normal, pulse ox 98% and temperature 98.6. HEENT: Conjunctivae normal. NECK: No jugular venous distention. CARDIOVASCULAR SYSTEM: S1, S2 muffled. RESPIRATORY SYSTEM: Breath sounds diminished at the bases. A few scattered rhonchi and crackles. ABDOMEN: Soft, non-tender. LEGS: No edema. No swelling. NERVOUS SYSTEM: No focal deficit. LABS: Labs at this time show WBC 10.5. ASSESSMENT: 1. Status post left total knee arthroplasty. 2. Diabetes mellitus, type 2. 3. Hypertension. 4. Continued pain. 5. History of renal disease. 6. History of diet-controlled diabetes mellitus, type 2. 7. History of bariatric surgery. 8. History of motion sickness. 9. Obesity with body mass index of 45.5. 10.FULL CODE. RECOMMENDATIONS AND DISCUSSION: I recommend to continue current medications, continue with the monitoring, symptomatic treatment. Otherwise, resume the home medication. Monitor blood pressure closely and follow with Dr. Tubbs in the outpatient setting for adjustment of blood pressure medications. Continue with Norvasc 5 mg p.o. b.i.d. MMODL / IJN: [id number] /
== END 2020-06-16 12:24 | disposition home health service (06) | DRG 470 ==
LOC: OR 07:55 → 4SSUR 12:08 → OR 06-15 11:08 → 4SSUR 06-15 11:08 → OBSVTOIN 06-15 11:54
PROVIDERS: ADMIT Orthopaedic Surgery; ATTEND Orthopaedic Surgery
PROC: 0SRD0J9 Replacement of Left Knee Joint with Synthetic Substitute, Cemented, Open Approach (ICD-10-PCS; principal; 2020-06-14 10:05)
DX: M17.12 Unilateral primary osteoarthritis, left knee (principal); Z68.42 Body mass index [BMI] 45.0-49.9, adult; E11.9 Type 2 diabetes mellitus without complications; E66.9 Obesity, unspecified; I10 Essential (primary) hypertension; Z79.1 Long term (current) use of non-steroidal anti-inflammatories (NSAID); Z79.899 Other long term (current) drug therapy; Z87.448 Personal history of other diseases of urinary system; Z98.84 Bariatric surgery status; Z87.891 Personal history of nicotine dependence; Z83.3 Family history of diabetes mellitus; Z82.49 Family history of ischemic heart disease and other diseases of the circulatory system; Z80.0 Family history of malignant neoplasm of digestive organs
CPT/HCPCS: 64448; 76942; 85025; 88300

== ENCOUNTER → 2020-07-11 | Outpatient (CLI) | payer OTHER ==
[2020-07-11 14:13] VITALS: BP 130/78; PULSE 74; TEMP 97.7; BMI 44.3
--- NOTE | 2020-07-11 14:38 | P.BASOAP ---
Subjective Progress Note Date: 07/11/20 Principal diagnosis: morbid obesity Patient returns for reevaluation. She was last seen 03/21. She had her left knee replaced 06/14. Still having significant discomfort. Gradually improving. Currently in a wheelchair today. Weight has stayed the same since last visit. Denies heartburn. No nausea or vomiting. Labs from March reviewed and show slight vitamin D deficiency. Objective - Vital Signs Vital signs: Vital Signs Temp 97.7 F 07/11/20 14:11 Pulse 74 07/11/20 14:11 Resp BP 130/78 07/11/20 14:11 Pulse Ox Intake & Output 07/10/20 07/11/20 07/11/20 18:59 06:59 18:59 Weight 126.552 kg - Exam Abdomen: Soft, nontender, nondistended Assessment/Plan (1) Morbid obesity Narrative/Plan: Patient doing well at this time. Continued dietary regimen. Patient will start increasing her activity with physical therapy more. She plans to by a stationary bike for the house. Continue antiacids when necessary. Follow-up 6 months. Plan: Date: 07/11/20 Initial Weight: 169.598 kg Initial BMI: 59.4 Current Weight: 126.552 kg Current BMI: 44.3 Type of Surgery: Total Volume in Band: Previous Volume: Volume Removed: Volume Added: Band Size:
== END | disposition home or self-care (01) ==
LOC: BARWHC3 13:38
PROVIDERS: ATTEND Surgery
DX: E66.01 Morbid (severe) obesity due to excess calories (principal); Z68.43 Body mass index [BMI] 50.0-59.9, adult
CPT/HCPCS: 99211

== ENCOUNTER 2020-11-17 21:30 | Emergency (ER) | payer OTHER ==
[2020-11-17] MEDS ORDERED: ONDANSETRON 4 MG/2 ML VIAL IVP STA (22:18)
[2020-11-17] MEDS ORDERED: SODIUM CHLORIDE 0.9% 1,000 ML IV STA (22:18)
[2020-11-17 22:52] LABS: Basophils % (A) 0 %; Eosinophils % (A) 1 %; HCT 41.8 % (34.0-46.0); Lymphocytes # (A) 0.7 k/uL (1.0-4.8); Lymphocytes % (A) 22 %; MCH 29.9 pg (25.0-35.0); MCHC 33.4 g/dL (31.0-37.0); MCV 89.5 fL (80.0-100.0); Mean Platelet Volume 7.7; Monocytes # (A) 0.1 k/uL (0-1.0); Monocytes % (A) 2 %; Neutrophils # (A) 2.3 k/uL (1.3-7.7); Neutrophils % (A) 73 %; Platelet Count 197 k/uL (150-450); Poikilocytosis Slight; RBC 4.67 m/uL (3.80-5.40); RDW 13.1 % (11.5-15.5); WBC 3.1 k/uL (3.8-10.6)
[2020-11-17 23:01] LABS: Appearance,Urine Cloudy (Clear); Bacteria,Urine Rare /hpf; Bilirubin,Urine Negative (Negative); Blood,Urine Negative (Negative); Color,Urine Yellow; Glucose,Urine (UA) Negative (Negative); Ketones,Urine 1+ (Negative); Leukocyte Esterase,Urine Negative (Negative); Mucus,Urine Occasional /hpf; Nitrite,Urine Negative (Negative); Protein,Urine 3+ (Negative); RBC,Urine 2 /hpf (0-5); Squamous Epithelial Cell,Urine 9 /hpf (0-4); Urobilinogen,Urine <2.0 mg/dL (<2.0); WBC,Urine 9 /hpf (0-5)
[2020-11-17 23:03] LABS: ALT 42 U/L (4-34); AST 60 U/L (14-36); African American GFR (CKD) >90 (>60 ml/min/1.73 sqM); Albumin 3.7 g/dL (3.5-5.0); Alkaline Phosphatase 78 U/L (38-126); Anion Gap 11 mmol/L; Blood Urea Nitrogen 20 mg/dL (7-17); Calcium 8.8 mg/dL (8.4-10.2); Carbon Dioxide 26 mmol/L (22-30); Chloride 102 mmol/L (98-107); Glucose 153 mg/dL (74-99); Lipase 115 U/L (23-300); Non-African American GFR(CKD) 85 (>60 ml/min/1.73 sqM); Potassium 3.3 mmol/L (3.5-5.1); Sodium 139 mmol/L (137-145); Total Bilirubin 0.4 mg/dL (0.2-1.3); Total Protein 7.1 g/dL (6.3-8.2)
--- NOTE | 2020-11-17 23:29 | XR ---
EXAMINATION TYPE: XR chest 2V DATE OF EXAM: 11/17/2020 COMPARISON: 02/26/2019 HISTORY: Cough TECHNIQUE: 2 views FINDINGS: There is pulmonary edema. Heart appears enlarged. Bony thorax is intact. I see no definite pleural effusion. IMPRESSION: There is new pulmonary edema compared to old exam. This could be acute heart failure or R DS.
--- NOTE | 2020-11-17 23:31 | ED ---
General Adult HPI - General Source: patient Mode of arrival: wheelchair Limitations: no limitations <Anshul Fischer - Last Filed: 11/18/20 03:39> <Dennis Collins - Last Filed: 11/18/20 22:59> - General Chief complaint: Nausea/Vomiting/Diarrhea Stated complaint: Vomiting,Fever Time Seen by Provider: 11/17/20 22:09 - History of Present Illness Initial comments: 50-year-old female with history of hypertension diabetes presents to emergency Department with chief complaint of fever and nausea vomiting. Patient reports decreased oral intake over the last 2-3 days due to nausea and multiple episodes of nonbilious and nonbloody vomiting. She denies any diarrhea. She does report a nonproductive cough and having a fever. Did reports taking [id number] antipyretics. She was recently tested for Covid but the results were negative. She has been working with people at her job who has tested positive. She denies any chest pain or shortness of breath. Due to the nausea vomiting, patient has not been able to take her antihypertensive medication. (Anshul Fischer) - Related Data Home Medications Medication Instructions Recorded Confirmed Multivitamin [Multivitamins Adult 2 tab PO DAILY 02/26/19 07/11/20 Gummies] Ferrous Sulfate [Iron] 650 mg PO DAILY 06/08/20 07/11/20 Ibuprofen 600 mg PO BID 06/08/20 07/11/20 Previous Rx's Medication Instructions Recorded Hydrocodone/Acetaminophen [[place] 1 - 2 each PO Q6HR PRN #56 tab 06/16/20 5-325] Ondansetron Odt [Zofran Odt] 4 mg PO Q8HR PRN #14 tab 11/18/20 Allergies Allergy/AdvReac Type Severity Reaction Status Date / Time No Known Allergies Allergy Verified 11/17/20 21:37 Review of Systems ROS Other: All systems not noted in ROS Statement are negative. <Anshul Fischer - Last Filed: 11/18/20 03:39> ROS Other: All systems not noted in ROS Statement are negative. <Dennis Collins - Last Filed: 11/18/20 22:59> ROS Statement: Those systems with pertinent positive or pertinent negative responses have been documented in the HPI. Past Medical History Past Medical History: Diabetes Mellitus, Hypertension Additional Past Medical History / Comment(s): renal insufficiency, History of Any Multi-Drug Resistant Organisms: None Reported Past Surgical History: Bariatric Surgery, Orthopedic Surgery Additional Past Surgical History / Comment(s): LEFT LEG PLATES AND SCREWS (3 surgeries total), lap gastric sleeve left knee replacement Past Anesthesia/Blood Transfusion Reactions: Motion Sickness Additional Past Anesthesia/Blood Transfusion Reaction / Comment(s): No transfusion to date Past Psychological History: No Psychological Hx Reported Smoking Status: Never smoker Past Alcohol Use History: None Reported Past Drug Use History: None Reported - Past Family History Father Family Medical History: Cancer, Diabetes Mellitus, Hypertension Additional Family Medical History / Comment(s): Colon cancer, smoked and was an alcoholic, brain sx for benign tumors, and CABG. Mother Family Medical History: Cancer, CVA/TIA, Diabetes Mellitus, Hypertension, Liver Disease Additional Family Medical History / Comment(s): Heart problems, liver cancer and renal problems. Grandmother CVA X5, heart disease. <Anshul Fischer - Last Filed: 11/18/20 03:39> General Exam Limitations: no limitations General appearance: alert, in no apparent distress, obese Head exam: Present: atraumatic, normocephalic, normal inspection Eye exam: Present: normal appearance, PERRL, EOMI Pupils: Present: normal accommodation ENT exam: Present: normal exam, normal oropharynx, mucous membranes moist, TM's normal bilaterally, normal external ear exam Neck exam: Present: normal inspection, full ROM. Absent: tenderness Respiratory exam: Present: normal lung sounds bilaterally, respiratory distress (Patient appears to be slightly short of breath. Not able to fully complete sentences.). Absent: wheezes, rales, rhonchi, stridor, chest wall tenderness, accessory muscle use Cardiovascular Exam: Present: regular rate, normal rhythm, normal heart sounds GI/Abdominal exam: Present: soft. Absent: distended, tenderness, guarding, rebound, rigid Extremities exam: Present: normal inspection, full ROM, normal capillary refill. Absent: tenderness Back exam: Present: normal inspection, full ROM. Absent: tenderness Neurological exam: Present: alert, oriented X3, normal gait Psychiatric exam: Present: normal affect, normal mood Skin exam: Present: warm, dry, intact, normal color <Anshul Fischer - Last Filed: 11/18/20 03:39> General appearance: alert, in no apparent distress Head exam: Present: atraumatic, normocephalic, normal inspection Eye exam: Present: normal appearance, PERRL, EOMI. Absent: scleral icterus, conjunctival injection, periorbital swelling ENT exam: Present: normal exam, mucous membranes moist Neck exam: Present: normal inspection. Absent: tenderness, meningismus, lymphadenopathy Respiratory exam: Present: normal lung sounds bilaterally. Absent: respiratory distress, wheezes, rales, rhonchi, stridor Cardiovascular Exam: Present: regular rate, normal rhythm, normal heart sounds. Absent: systolic murmur, diastolic murmur, rubs, gallop, clicks GI/Abdominal exam: Present: soft, normal bowel sounds. Absent: distended, tenderness, guarding, rebound, rigid Extremities exam: Present: normal inspection, full ROM, normal capillary refill. Absent: tenderness, pedal edema, joint swelling, calf tenderness Back exam: Present: normal inspection Neurological exam: Present: alert, oriented X3, CN II-XII intact Psychiatric exam: Present: normal affect, normal mood Skin exam: Present: warm, dry, intact, normal color. Absent: rash <Dennis Collins - Last Filed: 11/18/20 22:59> Course Vital Signs 11/17/20 11/17/20 11/18/20 21:55 22:40 01:32 Temperature 98.5 F 97.9 F Pulse Rate 74 67 77 Respiratory 18 18 18 Rate Blood Pressure 179/92 186/94 178/92 O2 Sat by Pulse 97 96 96 Oximetry 11/18/20 11/18/20 02:12 03:11 Temperature Pulse Rate 82 80 Respiratory 19 18 Rate Blood Pressure 182/92 O2 Sat by Pulse 95 94 L Oximetry EKG Findings - EKG Comments: EKG Findings:: Sinus rhythm,. S1Q3T3. Ventricular rate 73, DE 194, QRS 80, QTC 420. <Anshul Fischer Last Filed: 11/18/20 03:39> Medical Decision Making - Lab Data Result diagrams: 11/17/20 22:40 11/17/20 22:40 <Anshul Fischer - Last Filed: 11/18/20 03:39> - Lab Data Result diagrams: 11/17/20 22:40 11/17/20 22:40 - Radiology Data Radiology results: report reviewed (CT chest negative for central PE), image reviewed <Dennis Collins - Last Filed: 11/18/20 22:59> - Medical Decision Making 50-year-old female presents to emergency Department with a chief complaint of fever nausea vomiting. On physical examination, patient appears to be short of breath, not able to finish complete sentences. However, she states this is her baseline and how she normally talks. Patient is afebrile throughout ED course. She was hypertensive but that is because she was not able to take her medication due to the vomiting. CBC shows leukopenia with a low lymphocyte level. She did test positive for covid-19. CBC revealed hypo-kalemia. She was given kDur. Mild transaminitis. Chest x-ray reveals no signs pneumonia but there is new pulmonary edema. Patient doesn't have any chest pain or shortness of breath. BNP 64. She had elevated troponin of 0.043. Elevated d-dimer. CT chest angiogram pending. Patient was given IV fluids and antiemetics in the emergency department. On reevaluation, she did report improvement in symptoms. At this time patient care signed off to Dr Collins. (Anshul Fischer) 50 female DF for evaluation patient is positive for coronavirus. CT negative for central PE, patient's vomiting does seem to be improved. Patient at this time is refusing hospital admission, will sign out AGAINST MEDICAL ADVICE, patient understands severity of illness, will return to ER if symptoms continue to worsen (Dennis Collins) - Lab Data Lab Results 11/17/20 11/17/20 11/17/20 Range/Units 22:40 22:40 22:40 WBC 3.1 L (3.8-10.6) k/uL RBC 4.67 (3.80-5.40) m/uL Hgb 14.0 (11.4-16.0) gm/dL Hct 41.8 (34.0-46.0) % MCV 89.5 (80.0-100.0) fL MCH 29.9 (25.0-35.0) pg MCHC 33.4 (31.0-37.0) g/dL RDW 13.1 (11.5-15.5) % Plt Count 197 (150-450) k/uL MPV 7.7 Neutrophils % 73 % Lymphocytes % 22 % Monocytes % 2 % Eosinophils % 1 % Basophils % 0 % Neutrophils # 2.3 (1.3-7.7) k/uL Lymphocytes # 0.7 L (1.0-4.8) k/uL Monocytes # 0.1 (0-1.0) k/uL Eosinophils # 0.0 (0-0.7) k/uL Basophils # 0.0 (0-0.2) k/uL Poikilocytosis Slight D-Dimer (<0.60) mg/L FEU Sodium 139 (137-145) mmol/L Potassium 3.3 L (3.5-5.1) mmol/L Chloride 102 (98-107) mmol/L Carbon Dioxide 26 (22-30) mmol/L Anion Gap 11 mmol/L BUN 20 H (7-17) mg/dL Creatinine 0.80 (0.52-1.04) mg/dL Est GFR (CKD-EPI)AfAm >90 (>60 ml/min/1.73 sqM) Est GFR (CKD-EPI)NonAf 85 (>60 ml/min/1.73 sqM) Glucose 153 H (74-99) mg/dL Calcium 8.8 (8.4-10.2) mg/dL Total Bilirubin 0.4 (0.2-1.3) mg/dL AST 60 H (14-36) U/L ALT 42 H (4-34) U/L Alkaline Phosphatase 78 (38-126) U/L Lactate Dehydrogenase (313-618) U/L Troponin I (0.000-0.034) ng/mL C-Reactive Protein (<10.0) mg/L NT-Pro-B Natriuret Pep pg/mL Total Protein 7.1 (6.3-8.2) g/dL Albumin 3.7 (3.5-5.0) g/dL Lipase 115 (23-300) U/L Urine Color Yellow Urine Appearance Cloudy H (Clear) Urine pH 6.0 (5.0-8.0) Ur Specific [place] 1.040 H (1.001-1.035) Urine Protein 3+ H (Negative) Urine Glucose (UA) Negative (Negative) Urine Ketones 1+ H (Negative) Urine Blood Negative (Negative) Urine Nitrite Negative (Negative) Urine Bilirubin Negative (Negative) Urine Urobilinogen <2.0 (<2.0) mg/dL Ur Leukocyte Esterase Negative (Negative) Urine RBC 2 (0-5) /hpf Urine WBC 9 H (0-5) /hpf Ur Squamous Epith Cells 9 H (0-4) /hpf Urine Bacteria Rare H (None) /hpf Urine Mucus Occasional H (None) /hpf Coronavirus (PCR) (Not Detectd) 11/17/20 11/17/20 11/17/20 Range/Units 22:40 22:40 22:40 WBC (3.8-10.6) k/uL RBC (3.80-5.40) m/uL Hgb (11.4-16.0) gm/dL Hct (34.0-46.0) % MCV (80.0-100.0) fL MCH (25.0-35.0) pg MCHC (31.0-37.0) g/dL RDW (11.5-15.5) % Plt Count (150-450) k/uL MPV Neutrophils % % Lymphocytes % % Monocytes % % Eosinophils % % Basophils % % Neutrophils # (1.3-7.7) k/uL Lymphocytes # (1.0-4.8) k/uL Monocytes # (0-1.0) k/uL Eosinophils # (0-0.7) k/uL Basophils # (0-0.2) k/uL Poikilocytosis D-Dimer (<0.60) mg/L FEU Sodium (137-145) mmol/L Potassium (3.5-5.1) mmol/L Chloride (98-107) mmol/L Carbon Dioxide (22-30) mmol/L Anion Gap mmol/L BUN (7-17) mg/dL Creatinine (0.52-1.04) mg/dL Est GFR (CKD-EPI)AfAm (>60 ml/min/1.73 sqM) Est GFR (CKD-EPI)NonAf (>60 ml/min/1.73 sqM) Glucose (74-99) mg/dL Calcium (8.4-10.2) mg/dL Total Bilirubin (0.2-1.3) mg/dL AST (14-36) U/L ALT (4-34) U/L Alkaline Phosphatase (38-126) U/L Lactate Dehydrogenase (313-618) U/L Troponin I 0.042 H* (0.000-0.034) ng/mL C-Reactive Protein (<10.0) mg/L NT-Pro-B Natriuret Pep 64 pg/mL Total Protein (6.3-8.2) g/dL Albumin (3.5-5.0) g/dL Lipase (23-300) U/L Urine Color Urine Appearance (Clear) Urine pH (5.0-8.0) Ur Specific [place] (1.001-1.035) Urine Protein (Negative) Urine Glucose (UA) (Negative) Urine Ketones (Negative) Urine Blood (Negative) Urine Nitrite (Negative) Urine Bilirubin (Negative) Urine Urobilinogen (<2.0) mg/dL Ur Leukocyte Esterase (Negative) Urine RBC (0-5) /hpf Urine WBC (0-5) /hpf Ur Squamous Epith Cells (0-4) /hpf Urine Bacteria (None) /hpf Urine Mucus (None) /hpf Coronavirus (PCR) Detected A (Not Detectd) 11/17/20 11/18/20 Range/Units 22:40 02:20 WBC (3.8-10.6) k/uL RBC (3.80-5.40) m/uL Hgb (11.4-16.0) gm/dL Hct (34.0-46.0) % MCV (80.0-100.0) fL MCH (25.0-35.0) pg MCHC (31.0-37.0) g/dL RDW (11.5-15.5) % Plt Count (150-450) k/uL MPV Neutrophils % % Lymphocytes % % Monocytes % % Eosinophils % % Basophils % % Neutrophils # (1.3-7.7) k/uL Lymphocytes # (1.0-4.8) k/uL Monocytes # (0-1.0) k/uL Eosinophils # (0-0.7) k/uL Basophils # (0-0.2) k/uL Poikilocytosis D-Dimer 0.61 H (<0.60) mg/L FEU Sodium (137-145) mmol/L Potassium (3.5-5.1) mmol/L Chloride (98-107) mmol/L Carbon Dioxide (22-30) mmol/L Anion Gap mmol/L BUN (7-17) mg/dL Creatinine (0.52-1.04) mg/dL Est GFR (CKD-EPI)AfAm (>60 ml/min/1.73 sqM) Est GFR (CKD-EPI)NonAf (>60 ml/min/1.73 sqM) Glucose (74-99) mg/dL Calcium (8.4-10.2) mg/dL Total Bilirubin (0.2-1.3) mg/dL AST (14-36) U/L ALT (4-34) U/L Alkaline Phosphatase (38-126) U/L Lactate Dehydrogenase 1184 H (313-618) U/L Troponin I (0.000-0.034) ng/mL C-Reactive Protein 76.4 H (<10.0) mg/L NT-Pro-B Natriuret Pep pg/mL Total Protein (6.3-8.2) g/dL Albumin (3.5-5.0) g/dL Lipase (23-300) U/L Urine Color Urine Appearance (Clear) Urine pH (5.0-8.0) Ur Specific [place] (1.001-1.035) Urine Protein (Negative) Urine Glucose (UA) (Negative) Urine Ketones (Negative) Urine Blood (Negative) Urine Nitrite (Negative) Urine Bilirubin (Negative) Urine Urobilinogen (<2.0) mg/dL Ur Leukocyte Esterase (Negative) Urine RBC (0-5) /hpf Urine WBC (0-5) /hpf Ur Squamous Epith Cells (0-4) /hpf Urine Bacteria (None) /hpf Urine Mucus (None) /hpf Coronavirus (PCR) (Not Detectd) Disposition Is patient prescribed a controlled substance at d/c from ED?: No Time of Disposition: 01:45 <Anshul Fischer - Last Filed: 11/18/20 03:39> Is patient prescribed a controlled substance at d/c from ED?: No <Dennis Collins - Last Filed: 11/18/20 22:59> Clinical Impression: COVID-19, Nausea & vomiting, Elevated d-dimer, Elevated troponin Narrative: ?PE? (Dennis Collins) Disposition: Left Against Medical Advice Condition: Stable Instructions (If sedation given, give patient instructions): Coronavirus Disease 2019 (COVID-19) Additional Instructions: Please return to the Emergency Department if symptoms worsen or any other concerns. Prescriptions: Ondansetron Odt [Zofran Odt] 4 mg PO Q8HR PRN #14 tab PRN Reason: Nausea Referrals: Fernando Tubbs III, MD [Primary Care Provider] - 1-2 days
[2020-11-18 01:32] VITALS: TEMP 97.9
[2020-11-18] MEDS ORDERED: ONDANSETRON 4 MG ODT STARTER PACK 2 TAB BTL PO STA (01:39)
[2020-11-18] MEDS ORDERED: POTASSIUM CHLORIDE ER 20 MEQ TAB.ER PO STA (01:42)
[2020-11-18 03:12] VITALS: BP 182/92; PULSE 80; RESP 18
[2020-11-18] MEDS ORDERED: amLODIPine 10 MG TAB PO STA (03:38)
--- NOTE | 2020-11-18 03:51 | CT ---
EXAM: CT Angiography Chest With Intravenous Contrast CLINICAL HISTORY: ITS.REASON CT Reason: pe suspected, + dimer TECHNIQUE: Axial computed tomographic angiography images of the chest with intravenous contrast. CTDI is 27.97 mGy and DLP is 598.3 mGy-cm. This CT exam was performed using one or more of the following dose reduction techniques: automated exposure control, adjustment of the mA and/or kV according to patient size, and/or use of iterative reconstruction technique. MIP reconstructed images were created and reviewed. COMPARISON: No relevant prior studies available. FINDINGS: Limitations: There is extensive respiratory artifact which degrades image quality throughout the examination. Pulmonary arteries: Suboptimal heterogeneous enhancement of the pulmonary artery tree, presumably secondary to inflow of unopacified blood from the IVC. There is no evidence for large/central pulmonary embolism in the main, proximal left or proximal right main pulmonary arteries. However, the examination is essentially nondiagnostic for the segmental and subsegmental branches secondary to artifacts noted above. Aorta: No acute findings. No thoracic aortic aneurysm. Lungs: Scattered irregular peripheral patchy ground-glass opacities noted throughout the lungs. No lobar consolidation. Pleural space: Unremarkable. No significant effusion. No pneumothorax. Heart: Cardiac chambers are upper limits of normal in caliber. No significant pericardial effusion. Bones/joints: No acute fracture. No dislocation. Soft tissues: Unremarkable. Lymph nodes: Unremarkable. No enlarged lymph nodes. Stomach and bowel: Postsurgical changes consistent with gastric reduction surgery. IMPRESSION: 1. There is no evidence for large/central pulmonary embolism in the main, proximal left or proximal right main pulmonary arteries. However, the segmental and subsegmental branches are essentially nondiagnostic secondary to artifacts noted above. If there is high clinical index of suspicion for pulmonary embolism, repeat imaging during breath hold and focal expiratory maneuvers versus V/Q imaging is recommended. 2. Scattered irregular peripheral patchy ground-glass opacities noted throughout the lungs. No lobar consolidation. Findings are nonspecific in appearance but are consistent with bilateral pneumonia, to include atypical bacterial and viral (including, but not limited to Covid-19) processes. Definitive diagnostic testing and isolation protocol is recommended in the appropriate clinical setting and risk factors. No pleural effusion or pneumothorax.
[2020-11-18] MEDS ORDERED: ONDANSETRON 4 MG/2 ML VIAL IVP PRN (03:58)
[2020-11-18] MEDS ORDERED: NALOXONE 0.4 MG/ML 1 ML VIAL IV PRN (03:58)
[2020-11-18] MEDS ORDERED: IBUPROFEN 400 MG TAB PO PRN (03:58)
[2020-11-18] MEDS ORDERED: ACETAMINOPHEN TAB 325 MG TAB PO PRN (03:58)
[2020-11-18] MEDS ORDERED: MORPHINE SULFATE 4 MG/ML SYRINGE IV PRN (03:58)
[2020-11-18 11:47] LABS: C Reactive Protein 76.4 mg/L (<10.0)
== END 2020-11-18 04:13 | disposition left against medical advice (07) ==
LOC: EC 21:30 → 3SCARD 11-18 03:58 → UNDOADMIN 11-18 03:58 → EC 11-18 04:13
DX: U07.1 COVID-19 (principal); R77.8 Other specified abnormalities of plasma proteins; R79.1 Abnormal coagulation profile; E11.9 Type 2 diabetes mellitus without complications; I10 Essential (primary) hypertension
CPT/HCPCS: 36415 ×2; 93005; 85379; 83880; 80053; 83615; 83690; 84484; 85025; 86140; 81001; 87635; 71046; 71275; 99284; 96374; 96361; J2405; S0119; Q9967

== ENCOUNTER 2022-03-23 15:23 | Emergency (ER) | payer OTHER ==
[2022-03-23 15:53] VITALS: BP 181/84; PULSE 73; RESP 16; TEMP 98.1
--- NOTE | 2022-03-23 16:30 | XR ---
EXAMINATION TYPE: XR foot complete RT, XR ankle complete RT DATE OF EXAM: 03/23/2022 4:26 PM INDICATION: Patient age:Female; 51 years old; Reason for study: pain; COMPARISON: None TECHNIQUE: The right foot was examined in the AP, oblique, and lateral projections. Right ankle was examined in frontal lateral and oblique. FINDINGS: No evidence of any acute osseous pathology. No evidence of soft tissue swelling. Joints are preserve d. Mild plantar calcaneal spurring and Achilles enthesophyte. No injury to the deltoid ligament is sugge sted. IMPRESSION: 1. No evidence of acute fracture. 2. Chronic changes
[2022-03-23] MEDS ORDERED: KETOROLAC 15 MG/ML 1 ML VIAL IM STA (18:07)
--- NOTE | 2022-03-23 18:13 | ED ---
Extremity Problem HPI - General Chief complaint: Extremity Problem,Nontraumatic Stated complaint: R ankle pain Time Seen by Provider: 03/23/22 16:57 Source: patient Mode of arrival: wheelchair Limitations: physical limitation - History of Present Illness Initial comments: Patient is a 51-year-old female presenting with chief complaint of right foot pain. She denies any injury or trauma. States that the pain is been ongoing for the last 4 days. Pain is worse with dorsiflexion. It is primarily on the medial side of the foot and goes up to the ankle. She denies any numbness, tingling, weakness, loss of range of motion, discoloration, pallor, cold extremity. - Related Data Home Medications Medication Instructions Recorded Confirmed Multivitamin [Multivitamins Adult 2 tab PO DAILY 02/26/19 07/11/20 Gummies] Ferrous Sulfate [Iron] 650 mg PO DAILY 06/08/20 07/11/20 Ibuprofen 600 mg PO BID 06/08/20 07/11/20 Previous Rx's Medication Instructions Recorded Hydrocodone/Acetaminophen [[place] 1 - 2 each PO Q6HR PRN #56 tab 06/16/20 5-325] Ondansetron Odt [Zofran Odt] 4 mg PO Q8HR PRN #14 tab 11/18/20 Ketorolac [Toradol] 10 mg PO Q6HR PRN #10 tab 03/23/22 Allergies Allergy/AdvReac Type Severity Reaction Status Date / Time No Known Allergies Allergy Verified 03/23/22 15:52 Review of Systems ROS Statement: Those systems with pertinent positive or pertinent negative responses have been documented in the HPI. ROS Other: All systems not noted in ROS Statement are negative. Past Medical History Past Medical History: Hypertension Additional Past Medical History / Comment(s): renal insufficiency, History of Any Multi-Drug Resistant Organisms: None Reported Past Surgical History: Bariatric Surgery, Orthopedic Surgery Additional Past Surgical History / Comment(s): LEFT LEG PLATES AND SCREWS (3 surgeries total), lap gastric sleeve left knee replacement Past Anesthesia/Blood Transfusion Reactions: Motion Sickness Additional Past Anesthesia/Blood Transfusion Reaction / Comment(s): No transfusion to date Past Psychological History: No Psychological Hx Reported Smoking Status: Former smoker Past Alcohol Use History: None Reported Past Drug Use History: None Reported - Past Family History Father Family Medical History: Cancer, Diabetes Mellitus, Hypertension Additional Family Medical History / Comment(s): Colon cancer, smoked and was an alcoholic, brain sx for benign tumors, and CABG. Mother Family Medical History: Cancer, CVA/TIA, Diabetes Mellitus, Hypertension, Liver Disease Additional Family Medical History / Comment(s): Heart problems, liver cancer and renal problems. Grandmother CVA X5, heart disease. General Exam Limitations: no limitations General appearance: alert, in no apparent distress Head exam: Present: atraumatic, normocephalic, normal inspection Eye exam: Present: normal appearance, EOMI. Absent: scleral icterus, periorbital swelling Neck exam: Present: normal inspection Right Foot/Toe exam: Present: normal inspection, full ROM, tenderness. Absent: swelling, ecchymosis, deformity Neurovascular tendon exam: Present: no vascular compromise. Absent: motor deficit, sensory deficit Neurological exam: Present: alert, oriented X3, CN II-XII intact Psychiatric exam: Present: normal affect, normal mood Skin exam: Present: warm, dry, intact, normal color. Absent: rash Course Vital Signs 03/23/22 15:47 Temperature 98.1 F Pulse Rate 73 Respiratory 16 Rate Blood Pressure 181/84 O2 Sat by Pulse 96 Oximetry Medical Decision Making - Medical Decision Making Patient is a 51-year-old female presenting with chief complaint of right foot pain. No injury or trauma, worse with weightbearing and dorsiflexion. On examination there is tenderness on the medial aspect and up into the ankle. Full range of motion and neurovascularly intact. X-ray shows no acute fracture or dislocation. Educated the patient on these findings and supportive treatment. Follow-up with PCP in one to 2 days. Report back to ER with any new or worsening symptoms. Discussed return parameters and answered all questions. Patient conveyed verbal understanding and agreed to the plan. My attending is Dr. Reis. Disposition Clinical Impression: Ankle strain Disposition: HOME SELF-CARE Condition: Good Instructions (If sedation given, give patient instructions): Ankle Strain (ED) Additional Instructions: Follow-up with PCP in your orthopedist. Report back to ER with any new or worsening symptoms. Take Motrin and Tylenol as needed for pain control. Rest, ice, compress, elevate. Do not combine Motrin or aleve with Toradol, as these are both NSAIDs. Prescriptions: Ketorolac [Toradol] 10 mg PO Q6HR PRN #10 tab PRN Reason: Pain Is patient prescribed a controlled substance at d/c from ED?: No Referrals: Fernando Tubbs III, MD [Primary Care Provider] - 1-2 days Time of Disposition: 18:13
== END 2022-03-23 19:06 | disposition home or self-care (01) ==
LOC: EC 15:23
DX: S96.911A Strain of unspecified muscle and tendon at ankle and foot level, right foot, initial encounter (principal); I10 Essential (primary) hypertension; Z87.891 Personal history of nicotine dependence; X58.XXXA Exposure to other specified factors, initial encounter
CPT/HCPCS: 73610; 73630; 99283; 96372; J1885

== ENCOUNTER 2022-06-14 08:56 | Day surgery (SDC) | payer OTHER ==
[2022-06-12 12:40] VITALS: BMI 40.5
[~2022-06-14 08:56] MED LIST changes: -ACETAMINOPHEN TAB 500 MG TAB PO ONE; -DEXAMETHASONE SOD PHOSPHATE 10 MG/ML 1 ML VIAL IV ONE; +DEXAMETHASONE SOD PHOSPHATE 4 MG/ML 1 ML VIAL IV ONE; -HYDROmorphone 0.5 MG/0.5 ML SYRINGE IVP PRN; -LIDOCAINE 1% (10MG/ML) FOR IV START INTRADERMA PRN; -MELOXICAM 7.5 MG TAB PO ONE; +SCOPOLAMINE 1 MG/72 HR PATCH TRANSDERM ONE; -TRANEXAMIC ACID 1,000 MG in SODIUM CHLORIDE 0.9% 100 ML IVPB ONE; -ceFAZolin 3 GM in SODIUM CHLORIDE 0.9% 100 ML IVPB ONE
[2022-06-14] MEDS ORDERED: LIDOCAINE 1% (10MG/ML) FOR IV START INTRADERMA ONE (10:05)
[2022-06-14] MEDS ORDERED: MIDAZOLAM 2 MG/2 ML VIAL IVP ONE (10:32)
[2022-06-14] MEDS ORDERED: fentaNYL (PF) 50 MCG/ML 2 ML AMP IVP ONE (10:32)
[2022-06-14 10:54] VITALS: RESP 16
[2022-06-14] MEDS ORDERED: LIDOCAINE 2% INJ 20 MG/ML (2 ML VIAL) ONE (10:59)
[2022-06-14] MEDS ORDERED: ROPIVACAINE 5 MG/ML 30 ML VIAL ONE (10:59)
[2022-06-14] MEDS ORDERED: fentaNYL (PF) 50 MCG/ML 2 ML AMP ONE (10:59)
[2022-06-14] MEDS ORDERED: SODIUM CHLORIDE 0.9% (PF) 10 ML VIAL ONE (10:59)
[2022-06-14] MEDS ORDERED: PROPOFOL 10 MG/ML 20 ML VIAL IV ONE (10:59)
[2022-06-14] MEDS ORDERED: MIDAZOLAM 2 MG/2 ML VIAL ONE (10:59)
[2022-06-14] MEDS ORDERED: hydrALAZINE HCL 20 MG/ML 1 ML VIAL ONE (10:59)
[2022-06-14] MEDS ORDERED: SUCCINYLCHOLINE CHLORIDE 200 MG/10 ML VIAL IV ONE (10:59)
[2022-06-14] MEDS ORDERED: ceFAZolin 1,000 MG in SODIUM CHLORIDE 0.9% 1,000 ML IRRIGATION ONE (11:03)
--- NOTE | 2022-06-14 11:27 | P.ANPRN ---
Procedure Note - Anesthesia - Nerve Block Performed Right Adductor Canal Time Out Performed: Yes (:32) Date of Procedure: 06/14/22 Procedure Start Time: Procedure Stop Time: :39 Location of Patient: PreOp Indication: Acute Post-Operative Pain, Requested by Surgeon (Dr Benoit) Sedation Type: Sedate with meaningful contact maintained Preparation: Sterile Prep Position: Supine Catheter: None Needle Types: Pajunk Needle Gauge: 21 Ultrasound used to visualize needle placement: Yes Ultrasound used to observe medication spread: Yes Injectate: 0.5% Ropivacaine (see comment for volume) (15cc +5cc PF Normal saline3) Blood Aspirated: No Pain Paresthesia on Injection Noted: No Resistance on Injection: Normal Image Stored and Saved: Yes Events: Uneventful and Well Tolerated
--- NOTE | 2022-06-14 11:28 | P.ANPRN ---
Procedure Note - Anesthesia - Nerve Block Performed Right Popliteal Time Out Performed: Yes Date of Procedure: 06/14/22 Procedure Start Time: 10:40 Procedure Stop Time: 10:46 Location of Patient: PreOp Indication: Acute Post-Operative Pain, Requested by Surgeon (Dr Benoit) Sedation Type: Sedate with meaningful contact maintained Preparation: Sterile Prep Position: Left Lateral Catheter: None Needle Types: [place]unk Needle Gauge: 21 Ultrasound used to visualize needle placement: Yes Ultrasound used to observe medication spread: Yes Injectate: 0.5% Ropivacaine (see comment for volume) (15cc +5cc PF Normal saline) Blood Aspirated: No Pain Paresthesia on Injection Noted: No Resistance on Injection: Normal Image Stored and Saved: Yes Events: Uneventful and Well Tolerated
[2022-06-14] MEDS: HYDROmorphone 0.5 MG/0.5 ML SYRINGE IVP PRN ×2 (12:12→12:20)
[2022-06-14] MEDS: hydrALAZINE HCL 20 MG/ML 1 ML VIAL IVP ONE ×2 (12:13→12:32)
--- NOTE | 2022-06-14 12:18 | P.OP ---
Date of Procedure: 06/14/22 Preoperative Diagnosis: 1. Right ankle instability 2. Loose body right ankle Postoperative Diagnosis: 1. Same 2. Same Procedure(s) Performed: 1. Secondary repair of right lateral ankle ligaments 2. Right Ankle arthrotomy with removal of loose body Implants: Arthrex internal brace Arthrex fiber Nicholas anchors 2 Anesthesia: MAURIA Surgeon: Hesham Benoit Estimated Blood Loss (ml): 20 Pathology: none sent Condition: stable Disposition: PACU Description of Procedure: Prior to the patient being brought to the operating room, anesthesia administered a nerve block on the right lower extremity. The patient was then brought into the operating room and placed on table supine position. Timeout was taken to confirm correct patient identifiers, correct laterality of surgery, and correct procedure. When all staff in the room were in agreement with the timeout, the patient was induced and placed under general anesthesia. A well- padded tourniquet was placed on the right calf and bump underneath the right hip to internally rotate the right leg. The right leg was then prepped and draped in the usual manner. The leg was exsanguinated and the tourniquet inflated to 250 mmHg. Attention was directed over the anterior lateral aspect of the ankle where an extended lateral ankle incision was made so that the superior aspect of the ankle joint to be identified. The incision was made just anterior to lateral malleolus. The incision was deepened down to the subcutaneous tissue careful to identify, avoid, and retract any neurovascular structures and cauterize any bleeding vessels. Blunt dissection was then continued down to the lateral ankle joint capsule ligaments. The ligamentous and capsular structures were incised off the anterior surface the lateral malleolus starting from just superior to the ankle joint to the distal tip. Aidan was used to remove the cortical bone on the anterior surface of the lateral malleolus which would help facilitate tissue re-adhesion upon repair. This also created a soft tissue flap including the periosteum from the lateral malleolus. Blunt dissection was done to the ankle joint capsule the anterior surface of the tibia. Where there is a large fragment of bone that was indicated on x-ray and MRI. The bone was able to be mobilized and completely removed. There was palpated make sure there were no sharp edges on the tibia and none were found. With the ankle at 90 and in neutral inversion and eversion, the capsule was palpated on the lateral surface of the talus anterior to the articular surface. A small stab incision was made in the area of the talar body avoiding both the ankle and subtalar joints and near the junction of the neck. A drill hole was then placed utilizing a 3.4 mm drill bit into the talar body avoiding both the ankle and subtalar joints. The hole was then tapped and then the 4.75 mm swivel lock anchor was inserted and impacted and then advanced to proper depth. The same drill bit was used to create the hole for the 3.5 mm anchor in the lateral malleolus. Drill holes for the Arthrex fiber Jovanny anchors were made one inferior and one superior to the 3.4 mm drill hole in the lateral malleolus. With the drill guides for the anchor still in place, the anchors were inserted into the lateral malleolus and impacted to proper depth. The fringe knotter and guide were removed and then tension placed on the suture to lock anchors in place. Once both anchors were in place the wound was thoroughly irrigated with antibiotic saline. The suture on the fiber Nicholas anchors was then used to capture the distal ligamentous and capsular structures on the talus and then with the ankle in maximum dorsiflexion and eversion, the suture was tied repairing the ligament. The 2 arms of the internal brace suture were then passed through the 3.5 mm anchor which was then aligned with the drill hole lateral malleolus. Utilizing described tensioning techniques, the anchor and suture were inserted into the drill hole and then the anchor advanced to lock the suture in place. At that time the ankle was tested for stability where anterior drawer and inversion stress were both negative. The wound was again irrigated with antibiotic saline. The fiber Nicholas suture was used to sew the retinaculum over the lateral malleolus along with the periosteal flap in a pants over vest fashion. Subcu closure was done with 4-0 Monocryl and skin closure done with 3-0 Stratafix in a running subcuticular manner. Dermal glue was applied across the incision and allowed to dry. Steri-Strips are placed across incision. The incision was covered with an Arthrex jumpstart dressing and then a bulky dry dressing. The tourniquet was released and capillary refill return to all digits on the right foot. The patient was then placed in a below-knee, well-padded plaster posterior mold [facility] splint area and the ankle was held at 90 until the splint was dried. Anesthesia was reversed and the patient was taken recovery with vital signs stable.
[2022-06-14 12:24] VITALS: TEMP 97.2
[2022-06-14] MEDS ORDERED: hydrALAZINE HCL 20 MG/ML 1 ML VIAL IVP ONE (12:44)
[2022-06-14 13:54] VITALS: BP 169/85; PULSE 91
== END 2022-06-14 14:37 | disposition home or self-care (01) ==
LOC: OR 08:56
PROVIDERS: ATTEND Podiatrist
DX: M25.371 Other instability, right ankle (principal); M24.071 Loose body in right ankle; G89.18 Other acute postprocedural pain; M65.871 Other synovitis and tenosynovitis, right ankle and foot; M19.171 Post-traumatic osteoarthritis, right ankle and foot; I10 Essential (primary) hypertension; E11.29 Type 2 diabetes mellitus with other diabetic kidney complication; Z97.3 Presence of spectacles and contact lenses; Z87.891 Personal history of nicotine dependence; Z83.3 Family history of diabetes mellitus; Z82.49 Family history of ischemic heart disease and other diseases of the circulatory system
CPT/HCPCS: 64447; 81025; 64445; 76942; 27698; C1713 ×2; J2250; J0330; J0360; J1100; J0690 ×2; J2405; J3010; J2795; J2704; J1170; J2001

== ENCOUNTER 2023-03-12 12:36 | Inpatient (IN) | payer OTHER ==
--- NOTE | 2023-03-12 13:39 | ED ---
General Adult HPI - General Source: patient, RN notes reviewed Mode of arrival: ambulatory Limitations: no limitations <Tika Peguero - Last Filed: 03/12/23 13:34> <Dennis Lizarraga - Last Filed: 03/12/23 20:49> - General Chief complaint: Recheck/Abnormal Lab/Rx Stated complaint: HTN Time Seen by Provider: 03/12/23 13:34 - History of Present Illness Initial comments: Patient is a 52 year old female who presents to the emergency department for high blood pressure. Patient has history of hypertension states she has not taken hypertensive medication in 4 years due to improvement of blood pressure after gastric sleeve. She was at her primary care provider's office for routine checkup today and was found to be hypertensive. States she feels well no chest pain, shortness of breath, headache. (Tika Peguero) This a 52-year-old female presents emergency department stating that she was sent in by her primary medical care physician because for high blood pressure. Patient states years ago she had high blood pressure which was taken of all her medication because she lost quite a bit of weight. Patient states when she went into her blood pressure was extremely high so they sent her to the emergency department. Patient denies any chest pain difficulty breathing shortness of br eath per patient denies any headache. Patient denies any numbness weakness. Patient denies any blurred vision. Patient denies any symptoms at all at this time. Patient denies any fever chills. Patient denies any abdominal pain patient denies nausea vomiting. Patient has any back pain. (Dennis Lizarraga) - Related Data Allergies Allergy/AdvReac Type Severity Reaction Status Date / Time No Known Allergies Allergy Verified 06/14/22 09:42 Review of Systems ROS Other: All systems not noted in ROS Statement are negative. <Tika Peguero - Last Filed: 03/12/23 13:34> ROS Other: All systems not noted in ROS Statement are negative. <Dennis Lizarraga - Last Filed: 03/12/23 20:49> ROS Statement: Those systems with pertinent positive or pertinent negative responses have been documented in the HPI. Past Medical History Past Medical History: Diabetes Mellitus, Hypertension Additional Past Medical History / Comment(s): renal insufficiency, History of Any Multi-Drug Resistant Organisms: None Reported Past Surgical History: Bariatric Surgery, Orthopedic Surgery Additional Past Surgical History / Comment(s): LEFT LEG PLATES AND SCREWS (3 surgeries total), lap gastric sleeve left knee replacement Past Anesthesia/Blood Transfusion Reactions: Motion Sickness Additional Past Anesthesia/Blood Transfusion Reaction / Comment(s): No transfusion to date Past Psychological History: No Psychological Hx Reported Smoking Status: Former smoker Past Alcohol Use History: None Reported Past Drug Use History: None Reported - Past Family History Father Family Medical History: Cancer, Diabetes Mellitus, Hypertension Additional Family Medical History / Comment(s): Colon cancer, smoked and was an alcoholic, brain sx for benign tumors, and CABG. Mother Family Medical History: Cancer, CVA/TIA, Diabetes Mellitus, Hypertension, Liver Disease Additional Family Medical History / Comment(s): Heart problems, liver cancer and renal problems. Grandmother CVA X5, heart disease. <Tika Peguero - Last Filed: 03/12/23 13:34> General Exam Limitations: no limitations <Tika Peguero - Last Filed: 03/12/23 13:34> <Dennis Lizarraga - Last Filed: 03/12/23 20:49> - General Exam Comments Initial Comments: Visual Physical Exam Vital signs reviewed General: Well-appearing, nontoxic, no acute distress. Head: Normocephalic, atraumatic Eyes: PERRLA, EOMI ENT: Airway patent Chest: Nonlabored breathing Skin: No visual rash, normal skin tone Neuro: Alert and oriented 3 Musculoskeletal: No gross abnormalities (Tika Peguero) GENERAL: Patient is well-developed and well-nourished. Patient is nontoxic and well- hydrated and is in no acute distress. ENT: Neck is soft and supple. No significant lymphadenopathy is noted. Oropharynx is clear. Moist mucous membranes. Neck has full range of motion without eliciting any pain. EYES: The sclera were anicteric and conjunctiva were pink and moist. Extraocular movements were intact and pupils were equal round and reactive to light. Eyelids were unremarkable. PULMONARY: Unlabored respirations. Good breath sounds bilaterally. No audible rales rhonchi or wheezing was noted. CARDIOVASCULAR: There is a regular rate and rhythm without any murmurs gallops or rubs. ABDOMEN: Soft and nontender with normal bowel sounds. SKIN: Skin is clear with no lesions or rashes and otherwise unremarkable. NEUROLOGIC: Patient is alert and oriented x3. Cranial nerves II through XII are grossly intact. Motor and sensory are also intact. Normal speech, volume and content. Symmetrical smile. MUSCULOSKELETAL: Normal extremities with adequate strength and full range of motion. LYMPHATICS: No significant lymphadenopathy is noted PSYCHIATRIC: Normal psychiatric evaluation. (Dennis Lizarraga) Course Vital Signs 03/12/23 03/12/23 03/12/23 12:46 15:28 16:30 Temperature 98.6 F 97.7 F Pulse Rate 79 75 79 Respiratory 19 18 18 Rate Blood Pressure 221/132 236/123 241/107 O2 Sat by Pulse 92 L 99 99 Oximetry 03/12/23 03/12/23 03/12/23 18:00 19:00 20:00 Temperature Pulse Rate Respiratory Rate Blood Pressure 220/97 175/87 179/107 O2 Sat by Pulse Oximetry Medical Decision Making - Lab Data Result diagrams: 03/12/23 14:20 03/12/23 14:20 <Dennis Lizarraga - Last Filed: 03/12/23 20:49> - Medical Decision Making EKG was interpreted by myself shows sinus rhythm at 64 bpm DE interval 190 QRS is 97 QT intervals 434 QTC is 443. Patient's EKG shows slight ST segment depression in 1 and aVL and extremely low voltage in precordial leads V3 through V6 Was pt. sent in by a medical professional or institution (SONNY Lindsey, ELIGIBILITY AND OCCUPANCY INTERVIEWER, urgent care, hospital, or correction...) When possible be specific @ -Patient's primary medical care doctor sent the patient in Did you speak to anyone other than the patient for history (EMS, parent, family, police, friend...)? What history was obtained from this source @ -No Did you review nursing and triage notes (agree or disagree)? Why? @ -I reviewed and agree with nursing and triage notes Were old charts reviewed (outside hosp., previous admission, EMS record, old EKG, old radiological studies, urgent care reports/EKG's, correction records)? Report findings @ -I reviewed prior chart and prior lab work Differential Diagnosis (chest pain, altered mental status, abdominal pain women, abdominal pain men, vaginal bleeding, weakness, fever, dyspnea, syncope, headache, dizziness, GI bleed, back pain, seizure, CVA, palpatations, mental health, musculoskeletal)? @ -Hypertensive emergency, hypertensive urgency, noncompliant with hypertensive meds EKG interpreted by me (3pts min.). @ -As above X-rays interpreted by me (1pt min.). @ -Chest x-ray showed no acute abnormality CT interpreted by me (1pt min.). @ -None done U/S interpreted by me (1pt. min.). @ -None done What testing was considered but not performed or refused? (CT, X-rays, U/S, labs)? Why? @ -None What meds were considered but not given or refused? Why? @ -None Did you discuss the management of the patient with other professionals (professionals i.e. , PA, ELIGIBILITY AND OCCUPANCY INTERVIEWER, lab, RT, psych nurse, psychologist social, residential manager, teacher, antisubmarine weapons officer, pillowcase cleaner)? Give summary @ -I spoke with the [facility] they agreed to admit the patient admitted the patient wrote admitting orders Was smoking cessation discussed for >3mins.? @ -No Was critical care preformed (if so, how long)? @ -35 minutes Were there social determinants of health that impacted care today? How? (Homelessness, low income, unemployed, alcoholism, drug addiction, transportation, low edu. Level, literacy, decrease access to med. care, [facility], rehab)? @ -No Was there de-escalation of care discussed even if they declined (Discuss DNR or withdrawal of care, Hospice)? DNR status @ -No What co-morbidities impacted this encounter? (DM, HTN, Smoking, COPD, CAD, Cancer, CVA, ARF, Chemo, Hep., AIDS, mental health diagnosis, sleep apnea, morbid obesity)? @ -None Was patient admitted / discharged? Hospital course, mention meds given and route, prescriptions, significant lab abnormalities, going to OR and other pertinent info. @ -Patient was given hydralazine 202 to bring the pressure down it only brought it down about 20 points systolically but by this time the patient was extremely upset because she was unable to contact some of her coworkers and she had an important meeting tomorrow. I gave the patient 20 mg of IV labetalol and 1 of Ativan and the patient's blood pressure came down nicely. I should mention hospice and they agreed to admit the patient admitted the patient I consult cardiology Undiagnosed new problem with uncertain prognosis? @ -No Drug Therapy requiring intensive monitoring for toxicity (Heparin, Nitro, Insulin, Cardizem)? @ -No Were any procedures done? @ -No Diagnosis/symptom? @ -Hypertensive urgency Acute, or Chronic, or Acute on Chronic? @ -Acute Uncomplicated (without systemic symptoms) or Complicated (systemic symptoms)? @ -Complicated Side effects of treatment? @ -No Exacerbation, Progression, or Severe Exacerbation? @ -No Poses a threat to life or bodily function? How? (Chest pain, USA, NE, pneumonia, PE, COPD, DKA, ARF, appy, cholecystitis, CVA, Diverticulitis, Homicidal, Suicidal, threat to staff... and all critical care pts) @ -Yes this could lead to an NE or stroke and possibly (Dennis Lizarraga) - Lab Data Lab Results 03/12/23 03/12/23 03/12/23 Range/Units 14:20 14:20 14:20 WBC 5.3 (3.8-10.6) k/uL RBC 4.77 (3.80-5.40) m/uL Hgb 14.6 (11.4-16.0) gm/dL Hct 43.7 (34.0-46.0) % MCV 91.6 (80.0-100.0) fL MCH 30.5 (25.0-35.0) pg MCHC 33.3 (31.0-37.0) g/dL RDW 13.1 (11.5-15.5) % Plt Count 288 (150-450) k/uL MPV 7.5 Neutrophils % 46 % Lymphocytes % 40 % Monocytes % 6 % Eosinophils % 6 % Basophils % 1 % Neutrophils # 2.4 (1.3-7.7) k/uL Lymphocytes # 2.1 (1.0-4.8) k/uL Monocytes # 0.3 (0-1.0) k/uL Eosinophils # 0.3 (0-0.7) k/uL Basophils # 0.0 (0-0.2) k/uL Sodium 139 (137-145) mmol/L Potassium 3.5 (3.5-5.1) mmol/L Chloride 106 (98-107) mmol/L Carbon Dioxide 25 (22-30) mmol/L Anion Gap 8 mmol/L BUN 18 H (7-17) mg/dL Creatinine 0.59 (0.52-1.04) mg/dL Est GFR (CKD-EPI)AfAm >90 (>60 ml/min/1.73 sqM) Est GFR (CKD-EPI)NonAf >90 (>60 ml/min/1.73 sqM) Glucose 140 H (74-99) mg/dL Calcium 9.3 (8.4-10.2) mg/dL Total Bilirubin 0.7 (0.2-1.3) mg/dL AST 28 (14-36) U/L ALT 30 (4-34) U/L Alkaline Phosphatase 81 (38-126) U/L Troponin I (0.000-0.034) ng/mL Total Protein 7.5 (6.3-8.2) g/dL Albumin 4.1 (3.5-5.0) g/dL Urine Color Yellow Urine Appearance Clear (Clear) Urine pH 6.0 (5.0-8.0) Ur Specific [place] 1.011 (1.001-1.035) Urine Protein Trace H (Negative) Urine Glucose (UA) Negative (Negative) Urine Ketones Negative (Negative) Urine Blood Negative (Negative) Urine Nitrite Negative (Negative) Urine Bilirubin Negative (Negative) Urine Urobilinogen <2.0 (<2.0) mg/dL Ur Leukocyte Esterase Small H (Negative) Urine RBC 1 (0-5) /hpf Urine WBC 8 H (0-5) /hpf Ur Squamous Epith Cells 3 (0-4) /hpf Urine Bacteria Occasional H (None) /hpf Urine Mucus Occasional H (None) /hpf 03/12/23 Range/Units 16:33 WBC (3.8-10.6) k/uL RBC (3.80-5.40) m/uL Hgb (11.4-16.0) gm/dL Hct (34.0-46.0) % MCV (80.0-100.0) fL MCH (25.0-35.0) pg MCHC (31.0-37.0) g/dL RDW (11.5-15.5) % Plt Count (150-450) k/uL MPV Neutrophils % % Lymphocytes % % Monocytes % % Eosinophils % % Basophils % % Neutrophils # (1.3-7.7) k/uL Lymphocytes # (1.0-4.8) k/uL Monocytes # (0-1.0) k/uL Eosinophils # (0-0.7) k/uL Basophils # (0-0.2) k/uL Sodium (137-145) mmol/L Potassium (3.5-5.1) mmol/L Chloride (98-107) mmol/L Carbon Dioxide (22-30) mmol/L Anion Gap mmol/L BUN (7-17) mg/dL Creatinine (0.52-1.04) mg/dL Est GFR (CKD-EPI)AfAm (>60 ml/min/1.73 sqM) Est GFR (CKD-EPI)NonAf (>60 ml/min/1.73 sqM) Glucose (74-99) mg/dL Calcium (8.4-10.2) mg/dL Total Bilirubin (0.2-1.3) mg/dL AST (14-36) U/L ALT (4-34) U/L Alkaline Phosphatase (38-126) U/L Troponin I <0.012 (0.000-0.034) ng/mL Total Protein (6.3-8.2) g/dL Albumin (3.5-5.0) g/dL Urine Color Urine Appearance (Clear) Urine pH (5.0-8.0) Ur Specific [place] (1.001-1.035) Urine Protein (Negative) Urine Glucose (UA) (Negative) Urine Ketones (Negative) Urine Blood (Negative) Urine Nitrite (Negative) Urine Bilirubin (Negative) Urine Urobilinogen (<2.0) mg/dL Ur Leukocyte Esterase (Negative) Urine RBC (0-5) /hpf Urine WBC (0-5) /hpf Ur Squamous Epith Cells (0-4) /hpf Urine Bacteria (None) /hpf Urine Mucus (None) /hpf Critical Care Time Critical Care Time: Yes Total Critical Care Time: 35 <Dennis Lizarraga - Last Filed: 03/12/23 20:49> Disposition <Tika Peguero - Last Filed: 03/12/23 13:34> Time of Disposition: 20:25 <Dennis Lizarraga - Last Filed: 03/12/23 20:49> Clinical Impression: Hypertensive urgency Disposition: ADMITTED IP TO THIS HOSP
--- NOTE | 2023-03-12 14:01 | XR ---
EXAMINATION TYPE: XR chest 2V DATE OF EXAM: 03/12/2023 COMPARISON: NONE TECHNIQUE: PA and lateral views submitted. HISTORY: Hypertension FINDINGS: The lungs are clear and there is no pneumothorax, pleural effusion, or focal pneumonia. Heart size normal and no overt failure. Osseous structures demonstrate hypertrophic and degenerative changes of the spine. Soft tissue ossification adjacent to the right axilla. IMPRESSION: 1. No acute process.
[2023-03-12 14:40] LABS: Basophils % (A) 1 %; Eosinophils # (A) 0.3 k/uL (0-0.7); Eosinophils % (A) 6 %; HCT 43.7 % (34.0-46.0); HGB 14.6 gm/dL (11.4-16.0); Lymphocytes # (A) 2.1 k/uL (1.0-4.8); Lymphocytes % (A) 40 %; MCH 30.5 pg (25.0-35.0); MCHC 33.3 g/dL (31.0-37.0); MCV 91.6 fL (80.0-100.0); Mean Platelet Volume 7.5; Monocytes # (A) 0.3 k/uL (0-1.0); Monocytes % (A) 6 %; Neutrophils # (A) 2.4 k/uL (1.3-7.7); Neutrophils % (A) 46 %; Platelet Count 288 k/uL (150-450); RBC 4.77 m/uL (3.80-5.40); RDW 13.1 % (11.5-15.5); WBC 5.3 k/uL (3.8-10.6)
[2023-03-12 14:47] LABS: Appearance,Urine Clear (Clear); Bacteria,Urine Occasional /hpf; Bilirubin,Urine Negative (Negative); Blood,Urine Negative (Negative); Color,Urine Yellow; Glucose,Urine (UA) Negative (Negative); Ketones,Urine Negative (Negative); Leukocyte Esterase,Urine Small (Negative); Mucus,Urine Occasional /hpf; Nitrite,Urine Negative (Negative); Protein,Urine Trace (Negative); RBC,Urine 1 /hpf (0-5); Specific Gravity,Urine 1.011 (1.001-1.035); Squamous Epithelial Cell,Urine 3 /hpf (0-4); Urobilinogen,Urine <2.0 mg/dL (<2.0); WBC,Urine 8 /hpf (0-5)
[2023-03-12 14:52] LABS: ALT 30 U/L (4-34); AST 28 U/L (14-36); African American GFR (CKD) >90 (>60 ml/min/1.73 sqM); Albumin 4.1 g/dL (3.5-5.0); Alkaline Phosphatase 81 U/L (38-126); Anion Gap 8 mmol/L; Blood Urea Nitrogen 18 mg/dL (7-17); Calcium 9.3 mg/dL (8.4-10.2); Carbon Dioxide 25 mmol/L (22-30); Chloride 106 mmol/L (98-107); Glucose 140 mg/dL (74-99); Non-African American GFR(CKD) >90 (>60 ml/min/1.73 sqM); Potassium 3.5 mmol/L (3.5-5.1); Sodium 139 mmol/L (137-145); Total Bilirubin 0.7 mg/dL (0.2-1.3); Total Protein 7.5 g/dL (6.3-8.2)
[2023-03-12] MEDS ORDERED: hydrALAZINE HCL 20 MG/ML 1 ML VIAL IVP STA ×2 (15:48→16:37)
[2023-03-12] MEDS ORDERED: LABETALOL 5 MG/ML VIAL MDV IVP STA (17:56)
[2023-03-12] MEDS ORDERED: LORazepam 2 MG/ML INJ IV STA (18:30)
[2023-03-12] MEDS ORDERED: LORazepam 1 MG TAB PO PRN (20:26)
[2023-03-12] MEDS ORDERED: METOPROLOL TARTRATE 50 MG TAB PO SCH (21:00)
[2023-03-12 22:22] VITALS: TEMP 98.1
[2023-03-13 05:40] VITALS: RESP 16
--- NOTE | 2023-03-13 08:27 | P.CRDCN ---
History of Present Illness History of present illness: HISTORY OF PRESENT ILLNESS: This is a 52-year-old female with a past medical history significant for hypertension, hyperlipidemia, diabetes, morbid obesity with bariatric surgery in July 2018. 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 We have been asked to see the patient in consultation for hypertension. Patient examined at the bedside. Patient states that she went to her primary care physician yesterday for a routine visit as she has been under a lot of stress and went to discussed various ways to manage this. Patient's blood pressure was found to be extremity elevated with a systolic greater than 200. The patient states that she had gastric sleeve surgery and has lost 300 pounds far. She states that she was taken off all of her blood pressure, diabetes, and cholesterol medications. She states that one time she was passing out as her blood pressure was getting too low when she was still taking her blood pressure medications. She states the last time she took blood pressure medications was approximate 2 years ago. Most recent documented blood pressure 176/80. The patient states she is a nonsmoker. She denies any alcohol use. She denies any drug use including marijuana. * EKG reveals sinus mechanism with no signs of acute ischemia * Chest xray negative for acute process * Laboratory data: WBC 5.3. Hemoglobin 14.6. Platelet count 288. Sodium 139. Potassium 3.5. BUN 18. Creatinine 0.59. Troponin negative 1. * Current home cardiac medications include none * Most recent echocardiogram obtained in January 2019 revealed ejection fraction 55-60%, trace MR, mild TR * Patient underwent Lexiscan stress test in April 2018 which was negative for ischemia REVIEW OF SYSTEMS: At the time of my exam: CONSTITUTIONAL: Denies fever or chills. HEENT: Denies blurred vision, vision changes, or eye pain. Denies hemoptysis CARDIOVASCULAR: Denies chest pain. Denies orthopnea. Denies PND. Denies palpitations RESPIRATORY: Denies shortness of breath. GASTROINTESTINAL: Denies abdominal pain. Denies nausea or vomiting. HEMATOLOGIC: Denies bleeding disorders. GENITOURINARY: Denies any blood in urine. SKIN: Denies pruitis. Denies rash. PHYSICAL EXAM: VITAL SIGNS: Reviewed. GENERAL: Well-developed in no acute distress. HEENT: Head is normocephalic. Pupils are equal, round. Sclerae anicteric. Mucous membranes of the mouth are moist. Neck supple. No JVD or thyromegaly LUNGS: Respirations even and unlabored. Lungs essentially clear to auscultation bilaterally. HEART: Regular rate and rhythm. S1 and S2 heard. ABDOMEN: Soft. Nondistended. Nontender. EXTREMITIES: Normal range of motion. No clubbing or cyanosis. Peripheral pulses intact. No lower extremity edema NEUROLOGIC: Awake and alert. Oriented x 3. ASSESSMENT: Hypertensive urgency History of diabetes, controlled without medications per patient after weight loss History of hyperlipidemia, controlled without medications per patient after weight loss History of sleeve gastrectomy, 2018 Morbid obesity: BMI 48.4 PLAN: Obtain 2-D echo to assess cardiac structure and function Discontinue metoprolol Begin lisinopril 10 mg daily Begin hydrochlorothiazide 25 mg daily Continue to monitor blood pressure Further recommendations pending patient's course Nurse practitioner note has been reviewed by physician. Signing provider agrees with the documented findings, assessment, and plan of care. Past Medical History Past Medical History: Diabetes Mellitus, Hypertension Additional Past Medical History / Comment(s): renal insufficiency, History of Any Multi-Drug Resistant Organisms: None Reported Past Surgical History: Bariatric Surgery, Orthopedic Surgery Additional Past Surgical History / Comment(s): LEFT LEG PLATES AND SCREWS (3 surgeries total), lap gastric sleeve left knee replacement Past Anesthesia/Blood Transfusion Reactions: Motion Sickness Additional Past Anesthesia/Blood Transfusion Reaction / Comment(s): No transfusion to date Past Psychological History: No Psychological Hx Reported Additional Psychological History / Comment(s): PT HAS 2SONS and a daughter, 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 Mother Family Medical History: Cancer, CVA/TIA, Diabetes Mellitus, Hypertension, Liver Disease Additional Family Medical History / Comment(s): Heart problems, liver cancer and renal problems. Grandmother CVA X5, heart disease. Medications and Allergies Home Medications Medication Instructions Recorded Confirmed Type Ferrous Sulfate [Feosol] 325 mg PO DAILY 03/12/23 03/12/23 History Ibuprofen [Motrin Ib] 800 mg PO BID 03/12/23 03/12/23 History Multivitamins, Thera [Multivitamin 1 tab PO DAILY 03/12/23 03/12/23 History (formulary)] Turmeric Root Extract [Turmeric] 500 mg PO DAILY 03/12/23 03/12/23 History Vitamin B Complex 1 cap PO DAILY 03/12/23 03/12/23 History Allergies Allergy/AdvReac Type Severity Reaction Status Date / Time No Known Allergies Allergy Verified 03/12/23 21:02 Physical Exam Vitals: Vital Signs Temp Pulse Pulse Resp BP BP Pulse Ox 03/13/23 04:00 74 16 176/88 97 03/12/23 23:10 64 18 144/85 96 03/12/23 20:47 98.1 F 64 18 182/94 97 03/12/23 20:00 179/107 03/12/23 19:00 175/87 03/12/23 18:00 220/97 03/12/23 16:30 79 18 241/107 99 03/12/23 15:28 97.7 F 75 18 236/123 99 03/12/23 12:46 98.6 F 79 19 221/132 92 L Intake and Output 03/12/23 03/13/23 03/13/23 22:59 06:59 14:59 Intake Total 240 10 Balance 240 10 Intake: IV 10 Invasive Line 1 10 Oral 240 Other: # Voids 2 Weight 136.078 kg Results 03/12/23 14:20 03/12/23 14:20 Cardiac Enzymes 03/12/23 03/12/23 Range/Units 14:20 16:33 AST 28 (14-36) U/L Troponin I <0.012 (0.000-0.034) ng/mL CBC 03/12/23 Range/Units 14:20 WBC 5.3 (3.8-10.6) k/uL RBC 4.77 (3.80-5.40) m/uL Hgb 14.6 (11.4-16.0) gm/dL Hct 43.7 (34.0-46.0) % Plt Count 288 (150-450) k/uL Comprehensive Metabolic Panel 03/12/23 Range/Units 14:20 Sodium 139 (137-145) mmol/L Potassium 3.5 (3.5-5.1) mmol/L Chloride 106 (98-107) mmol/L Carbon Dioxide 25 (22-30) mmol/L BUN 18 H (7-17) mg/dL Creatinine 0.59 (0.52-1.04) mg/dL Glucose 140 H (74-99) mg/dL Calcium 9.3 (8.4-10.2) mg/dL AST 28 (14-36) U/L ALT 30 (4-34) U/L Alkaline Phosphatase 81 (38-126) U/L Total Protein 7.5 (6.3-8.2) g/dL Albumin 4.1 (3.5-5.0) g/dL Current Medications Generic Name Dose Route Start Last Admin Trade Name Freq PRN Reason Stop Dose Admin Hydrochlorothiazide 25 mg 03/13/23 09:00 Hydrochlorothiazide 25 Mg Tab PO DAILY OSMIN Lisinopril 10 mg 03/13/23 09:00 Lisinopril 10 Mg Tab PO DAILY OSMIN Lorazepam 1 mg 03/12/23 20:26 Lorazepam 1 Mg Tab PO Q8HR PRN Anxiety Intake and Output 03/12/23 03/13/23 03/13/23 22:59 06:59 14:59 Intake Total 240 10 Balance 240 10 Intake: IV 10 Invasive Line 1 10 Oral 240 Other: # Voids 2 Weight 136.078 kg 03/12/23 14:20 03/12/23 14:20
[2023-03-13] MEDS ORDERED: hydroCHLOROthiazide 25 MG TAB PO SCH (09:00)
[2023-03-13] MEDS ORDERED: lisinopriL 20 MG TAB PO SCH (09:00)
[2023-03-13] MEDS ORDERED: lisinopriL 10 MG TAB PO SCH ×2 (09:00→21:00)
[2023-03-13 11:42] VITALS: BP 207/102; PULSE 70
[2023-03-13 12:12] LABS: Chol/HDL Ratio 5.35 Ratio; LDL Cholesterol,Calculated 150.9 mg/dL (0.0-131.0)
--- NOTE | 2023-03-13 13:17 | P.HPIM ---
History of Present Illness H&P Date: 03/13/23 History of present illness; patient is a 52-year-old lady with past medical sign ificant for hypertension, not taking any medication at this time presented to the ER after being referred from PCP because of elevated blood pressures. Patient stated that she was being seen at her PCPs office when they found out that her blood pressure was very elevated. She denied any chest pain, denies any shortness of breath. No swelling of feet. There was no complain of palpitations. Patient denies any headache or blurred visions. Because of this elevated blood pressure, patient was sent to the ER Initial lab work done in the ER showed WBC 5.2, hemoglobin 14.6, platelet count 288, sodium 139, potassium 3.5, BUN 18, creatinine 0.59, troponin 0.012 Chest x-ray done showed no acute process Patient admitted to medicine service REVIEW OF SYSTEMS: CONSTITUTIONAL: No fever, no malaise, no fatigue. HEENT: No recent visual problems or hearing problems. Denied any sore throat. CARDIOVASCULAR: No chest pain, orthopnea, PND, no palpitations, no syncope. PULMONARY: No shortness of breath, no cough, no hemoptysis. GASTROINTESTINAL: No diarrhea, no nausea, no vomiting, no abdominal pain. NEUROLOGICAL: No headaches, no weakness, no numbness. HEMATOLOGICAL: Denies any bleeding or petechiae. GENITOURINARY: Denies any burning micturition, frequency, or urgency. MUSCULOSKELETAL/RHEUMATOLOGICAL: Denies any joint pain, swelling, or any muscle pain. ENDOCRINE: Denies any polyuria or polydipsia. The rest of the 14-point review of systems is negative. PHYSICAL EXAMINATION: GENERAL: The patient is alert and oriented x3, not in any acute distress. Well developed, well nourished. HEENT: Pupils are round and equally reacting to light. EOMI. No scleral icterus. No conjunctival pallor. Normocephalic, atraumatic. No pharyngeal erythema. No thyromegaly. CARDIOVASCULAR: S1 and S2 present. No murmurs, rubs, or gallops. PULMONARY: Chest is clear to auscultation, no wheezing or crackles. ABDOMEN: Soft, nontender, nondistended, normoactive bowel sounds. No palpable organomegaly. MUSCULOSKELETAL: No joint swelling or deformity. EXTREMITIES: No cyanosis, clubbing, or pedal edema. NEUROLOGICAL: Gross neurological examination did not reveal any focal deficits. SKIN: No rashes. Assessment and plan Hypertensive urgency History of diabetes History of hyperlipidemia, controlled without medications per patient after weight loss History of sleeve gastrectomy, 2017 Morbid obesity: BMI 48.4 Monitor vital signs Monitor CBC Monitor CMP Continue telemetry monitoring 2-D echo ordered Continue lisinopril Continue HCTZ Consult cardiology Labs and medication were reviewed.. Continue same treatment. Continue with symptomatic treatment. Resume home medication. Monitor labs and vitals. DVT and GI prophylaxis. Further recommendations as per clinical course of the patient Past Medical History Past Medical History: Diabetes Mellitus, Hypertension Additional Past Medical History / Comment(s): renal insufficiency, History of Any Multi-Drug Resistant Organisms: None Reported Past Surgical History: Bariatric Surgery, Orthopedic Surgery Additional Past Surgical History / Comment(s): LEFT LEG PLATES AND SCREWS (3 surgeries total), lap gastric sleeve left knee replacement Past Anesthesia/Blood Transfusion Reactions: Motion Sickness Additional Past Anesthesia/Blood Transfusion Reaction / Comment(s): No transfusion to date Past Psychological History: No Psychological Hx Reported Additional Psychological History / Comment(s): PT HAS 2SONS and a daughter, 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 Mother Family Medical History: Cancer, CVA/TIA, Diabetes Mellitus, Hypertension, Liver Disease Additional Family Medical History / Comment(s): Heart problems, liver cancer and renal problems. Grandmother CVA X5, heart disease. Medications and Allergies Home Medications Medication Instructions Recorded Confirmed Type Ferrous Sulfate [Feosol] 325 mg PO DAILY 03/12/23 03/12/23 History Ibuprofen [Motrin Ib] 800 mg PO BID 03/12/23 03/12/23 History Multivitamins, Thera [Multivitamin 1 tab PO DAILY 03/12/23 03/12/23 History (formulary)] Turmeric Root Extract [Turmeric] 500 mg PO DAILY 03/12/23 03/12/23 History Vitamin B Complex 1 cap PO DAILY 03/12/23 03/12/23 History Allergies Allergy/AdvReac Type Severity Reaction Status Date / Time No Known Allergies Allergy Verified 03/12/23 21:02 Physical Exam Vitals: Vital Signs Temp Pulse Pulse Resp BP BP Pulse Ox 03/13/23 04:00 74 16 176/88 97 03/12/23 23:10 64 18 144/85 96 03/12/23 20:47 98.1 F 64 18 182/94 97 03/12/23 20:00 179/107 03/12/23 19:00 175/87 03/12/23 18:00 220/97 03/12/23 16:30 79 18 241/107 99 03/12/23 15:28 97.7 F 75 18 236/123 99 03/12/23 12:46 98.6 F 79 19 221/132 92 L Intake and Output 03/12/23 03/13/23 03/13/23 22:59 06:59 14:59 Intake Total 240 10 120 Balance 240 10 120 Intake: IV 10 Invasive Line 1 10 Oral 240 120 Other: # Voids 2 Weight 136.078 kg Results CBC & Chem 7: 03/12/23 14:20 03/12/23 14:20 Labs: Abnormal Lab Results - Last 24 Hours (Table) 03/12/23 03/12/23 Range/Units 14:20 14:20 BUN 18 H (7-17) mg/dL Glucose 140 H (74-99) mg/dL Urine Protein Trace H (Negative) Ur Leukocyte Esterase Small H (Negative) Urine WBC 8 H (0-5) /hpf Urine Bacteria Occasional H (None) /hpf Urine Mucus Occasional H (None) /hpf Thrombosis Risk Factor Assmnt - Choose All That Apply Each Factor Represents 1 point: Age 41-60 years, Obesity (BMI >25) Other Risk Factors: No Other congenital or acquired thrombophilia - If yes, enter type in comment: No Thrombosis Risk Factor Assessment Total Risk Factor Score: 2 Thrombosis Risk Factor Assessment Level: Low Risk
[2023-03-14] MEDS ORDERED: FERROUS SULFATE 325 MG TAB PO SCH (09:00)
[2023-03-14] MEDS ORDERED: NON FORMULARY DRUG (Vitamin B Complex [Vitamin B Complex] 1 EACH Capsule) PO SCH (09:00)
== END 2023-03-13 10:51 | disposition left against medical advice (07) | DRG 199 ==
LOC: EC 12:36 → 3SCARD 20:25
PROVIDERS: ADMIT Hospitalist; ATTEND Hospitalist
DX: I16.0 Hypertensive urgency (principal); E66.01 Morbid (severe) obesity due to excess calories; I08.1 Rheumatic disorders of both mitral and tricuspid valves; Z53.29 Procedure and treatment not carried out because of patient's decision for other reasons; Z68.42 Body mass index [BMI] 45.0-49.9, adult; Z98.84 Bariatric surgery status; E78.5 Hyperlipidemia, unspecified; I16.1 Hypertensive emergency; Z96.652 Presence of left artificial knee joint; Z91.199 Patient's noncompliance with other medical treatment and regimen due to unspecified reason; Z87.891 Personal history of nicotine dependence; Z82.49 Family history of ischemic heart disease and other diseases of the circulatory system
CPT/HCPCS: 36415; 71046; 80053; 80061; 81001; 83036; 84484; 85025; 93005; 96374; 96375; 96376; 99291

== ENCOUNTER → 2023-06-19 | Outpatient (CLI) | payer OTHER ==
[2023-06-19 08:56] VITALS: BP 190/96; PULSE 69; RESP 16; TEMP 97.5
--- NOTE | 2023-06-19 11:18 | P.PAINPG ---
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 Pt states pain level is provoked at 10 /10 in intensity, constant, localized in the R ankle, achy in character without shooting pain. Pain is provoked by weight bearing. Pain is alleviated by PT x 7 wks in Mar 2023, ice, medications (Tyl), topical, elevation, repositioning and rest. PMH: OA, DM II, HTN, CRF PSH: Lap Gastric Sleeve Surgery, LLE Surgery w Hardware x3, L Knee Replacement SH: Hx of 54 pack/ yr tobacco use, No ETOH abuse, No illicit drug use. Has 3 children. Works as [employer]. FH: Fa- Colon CA, DM II, CAD, Alcoholism. Mo- Liver CA, CVA, DM II, CAD. All: See list Meds: See list REVIEW OF ORGAN SYSTEMS: CONSTITUTIONAL: No fevers or chills. No recent weight loss. NEUROLOGICAL: + numbness and tingling along the distal extremities. No seizure disorders or headaches. MUSCULOSKELETAL: + pain PSYCHIATRIC: Denies current depression or suicidal thoughts. Physical Examinations : Constitutional : Cooperative , not in acute distress . Neurologic : Cranial nerve II to XII intact. No focal neurological deficits. Psychiatric : alert & oriented x 3. Matching mood & appropriate affect. Judgment & insight intact. Musculoskeletal : Cervical Spine Motor strength in the deltoid and biceps: Normal right side. Normal Left side Motor strength biceps and the wrist extensors: Normal right side . Normal left side Motor strength in the triceps muscle: Normal right side. Normal left side Deep tendon reflexes: Normal at the biceps. Normal at Brachioradialis. Normal at triceps Vertebral body tenderness to deep palpation over Cervical facet loading test: positive bilaterally Spurling test: positive bilaterally Neck distraction test: positive bilaterally Maximus sign: positive bilaterally Lumbar spine +R ankle diffuse TTP Motor strength lower extremities ,thigh and legs 5/5 Right side , 5/5 Left side Deep tendon reflexes : Normal Knee Jerk. Normal Ankle Jerk Vertebral body tenderness over Deras Test positive Lumbar facet Loading Test: positive Right / positive Left Range of motion of the lumbar spine Flexion 30 degrees, extension 10 degrees Straight Leg Raise test: Left/ Right positive at degree Teddy test: positive right / positive left. Severe tenderness over the Sacroiliac joint on the Right / Left sides Gaenslen test: positive bilaterally Seated flexion test: positive bilaterally. Sacral spine : Severe tenderness over the Sacroiliac joint: right side / left side Range of motion: Flexion of the lumbar spine <60 degrees Range of motion: Extension of the lumbar spine <20 degrees Gaenslen's Test positive Yasmany's Test positive Teddy test: positive right side / left side Thigh Thrust Test Sacral Thrust Test Imaging: X-ray of R ankle from 03/23/22 reviewed MRI from [facility] received via fax and reviewed Assessment/ Plan : R Ankle Traumatic Arthropathy Recommendation of R ankle nerve block. May need a series of injections for optimal pain relief. Risks, benefits of procedure discussed and pt verbalized understanding. Protocol for discontinuation/ continuation of medications surrounding procedure discussed. All questions answered. I have spent greater than 30 minutes on patient care today. Dr Fan was available by phone for the evaluation of this patient. The time was used to review the medical records including relevant urine studies and Prescription history (MAPs), review of the available imaging, evaluation and examination of the patient, coordination of care with the medical staff and if applicable referring physicians, as well as creation of the medical record - Pain Location Bilateral Lower Back Non-Pharmacological Interventions: Ice, Inactivity, Physical Therapy Pharmacological Interventions: PRN Medication, Topical Medication PQRS Narrative: Smoking Status Former smoker Home Medications: Ambulatory Orders Ferrous Sulfate [Feosol] 325 mg PO DAILY 03/12/23 Ibuprofen [Motrin Ib] 800 mg PO BID 03/12/23 Multivitamins, Thera [Multivitamin (formulary)] 1 tab PO DAILY 03/12/23 Turmeric Root Extract [Turmeric] 500 mg PO DAILY 03/12/23 Vitamin B Complex 1 cap PO DAILY 03/12/23 Controlled Substance Measures - Controlled Substance Measures Is patient prescribed a controlled substance at discharge?: No
== END ==
LOC: PNWHC3 07:50
PROVIDERS: ATTEND Specialist
DX: M12.571 Traumatic arthropathy, right ankle and foot (principal); G89.28 Other chronic postprocedural pain; E11.22 Type 2 diabetes mellitus with diabetic chronic kidney disease; I12.9 Hypertensive chronic kidney disease with stage 1 through stage 4 chronic kidney disease, or unspecified chronic kidney disease; N18.9 Chronic kidney disease, unspecified; Z87.891 Personal history of nicotine dependence
CPT/HCPCS: 99211

== ENCOUNTER 2023-08-07 06:06 | Day surgery (SDC) | payer OTHER ==
[2023-08-07] MEDS ORDERED: LACTATED RINGERS 1,000 ML IV SCH (06:07)
[2023-08-07 06:57] VITALS: TEMP 97.1
[2023-08-07] MEDS ORDERED: ROPIVACAINE 5MG/ML 20ML VIAL ONE (07:02)
[2023-08-07] MEDS ORDERED: methylPREDNISolone ACETATE 80 MG/ML 1 ML VIAL ONE (07:02)
--- NOTE | 2023-08-07 07:31 | P.PCN ---
Date of Procedure: 08/07/23 Procedure(s) Performed: preop Diagnosis : 1-chronic severe right ankle pain. 2-right ankle arthroplathy. post op Diadnosis : Same as preop diagnosis. procedure : Right ankle block ( involve block of the five nerves that innervate the ankle 1- saphenous nerve 2 -posterior tibial nerve . 3- superficial peroneal nerve 4- deep peroneal nerve 5- sural nerve anesthesia =none complications :none Indication for the procedure: The patient with a history of chronic right foot pain , we discussed with the patient the option of doing right ankle block procedure risk and benefit, including but not limited to risk of infection and bleeding, and ALLERGIC reaction to the medication and not complete pain relief discussed with the patient and she agreed with the preceding . Description of the procedure; the right ankle area prepped with chlorhexidine 3 times. Then under strict sterile technique using the 25-gauge needle first I did the right posterior tibial nerve block the needle placed and directed anteriorly at the cephalic border of the medial malleolus, just medial to the Achilles tendon 5 ML of block solution that's consist of ropivacaine 0.5% 25 ml mixed with 80 mg of Depo-Medrol 5 ml injected after negative aspiration then after that , I did the right saphenous nerve block by injecting 5 ML at the location of the right saphenous nerve using 25-gauge needle of ML of the block solution injected after negative aspiration, then the deep peroneal nerve block done by placing the 25-gauge needle between the tendon of the anterior tibial and the extensor Hallucis longus muscles , a total of 5 mL of the block soulutions injected after negative aspiration, then after that I blocked the superficial peroneal nerve , by using 25-gauge needle, the skin infiltration of the subcutaneous tissue between the medial malleolus and the lateral malleolus, finally I did the right sural nerve block by injecting 5 ML of injected anterior laterally immediately lateral to the Achilles tendon at the cephalic border of the lateral malleolus ,after negative aspirations, patient tolerated the procedure well without any complication and discharged home in stable condition , and she will follow up pain clinic in 2-4 weeks Ultrasound was used to visualize the nerve and to avoid any intravascular injection, ultrasound pictures available in the patient's chart
[2023-08-07 08:13] VITALS: BP 179/89; PULSE 70; RESP 17
== END 2023-08-07 08:00 | disposition home or self-care (01) ==
LOC: ORPAIN 06:06
PROVIDERS: ATTEND Specialist
DX: M25.571 Pain in right ankle and joints of right foot (principal); G89.29 Other chronic pain
CPT/HCPCS: 64450; J1040; J2795

== ENCOUNTER 2025-01-10 21:00 | Emergency (ER) | payer OTHER ==
[2025-01-10 21:05] VITALS: TEMP 98.1
--- NOTE | 2025-01-10 21:24 | ED ---
General Adult HPI - General Chief complaint: Extremity Injury, Lower Stated complaint: Pain Time Seen by Provider: 01/10/25 21:11 Source: patient, RN notes reviewed Mode of arrival: wheelchair Limitations: no limitations - History of Present Illness Initial comments: 54-year-old female with history of diabetes and hypertension not currently medications resenting to emergency department for complaints of nontraumatic ecchymosis to the posterior left leg. Patient states that she noticed the bruising of her posterior leg approximately a week and a half ago and the bruising has been spreading proximally to her knee. Additionally, patient is concerned that there is swelling on the lateral aspect of her leg. She denies recent falls or injuries. Patient is concerned that she has hardware of her extremity due to history of trauma 30+ years ago. Patient's orthopedic procedures have been completed by Dr. Wayne. She denies history of DVT, PE, dyspareunia, chest pain, blood thinner use. - Related Data Home Medications Medication Instructions Recorded Confirmed Ferrous Sulfate [Feosol] 325 mg PO DAILY 03/12/23 08/07/23 Multivitamins, Thera [Multivitamin 1 tab PO DAILY 03/12/23 08/07/23 (formulary)] Turmeric Root Extract [Turmeric] 500 mg PO DAILY 03/12/23 08/07/23 Vitamin B Complex 1 cap PO DAILY 03/12/23 08/07/23 lisinopriL 40 mg PO DAILY 08/04/23 08/07/23 Previous Rx's Medication Instructions Recorded hydroCHLOROthiazide 12.5 mg PO DAILY #21 cap 01/10/25 lisinopriL [Prinivil] 10 mg PO DAILY #21 tab 01/10/25 Allergies Allergy/AdvReac Type Severity Reaction Status Date / Time duck feathers AdvReac Unknown Uncoded 01/10/25 21:05 plants AdvReac Unknown Uncoded 01/10/25 21:05 Review of Systems ROS Statement: Those systems with pertinent positive or pertinent negative responses have been documented in the HPI. ROS Other: All systems not noted in ROS Statement are negative. Past Medical History Past Medical History: Diabetes Mellitus, Hypertension Additional Past Medical History / Comment(s): renal insufficiency, History of Any Multi-Drug Resistant Organisms: None Reported Past Surgical History: Bariatric Surgery, Orthopedic Surgery Additional Past Surgical History / Comment(s): LEFT LEG PLATES AND SCREWS (3 surgeries total), lap gastric sleeve left knee replacement, rt ankle tendon surgery Past Anesthesia/Blood Transfusion Reactions: Motion Sickness Additional Past Anesthesia/Blood Transfusion Reaction / Comment(s): No transfusion to date Past Psychological History: No Psychological Hx Reported Smoking Status: Former smoker Past Alcohol Use History: None Reported Past Drug Use History: None Reported - Past Family History Father Family Medical History: Cancer, Diabetes Mellitus, Hypertension Additional Family Medical History / Comment(s): Colon cancer, smoked and was an alcoholic, brain sx for benign tumors, and CABG. Mother Family Medical History: Cancer, CVA/TIA, Diabetes Mellitus, Hypertension, Liver Disease Additional Family Medical History / Comment(s): Heart problems, liver cancer and renal problems. Grandmother CVA X5, heart disease. General Exam Limitations: no limitations ENT exam: Present: normal exam, mucous membranes moist Respiratory exam: Present: normal lung sounds bilaterally. Absent: respiratory distress, wheezes, rales, rhonchi, stridor Cardiovascular Exam: Present: regular rate, normal rhythm, normal heart sounds. Absent: systolic murmur, diastolic murmur, rubs, gallop, clicks GI/Abdominal exam: Present: soft, normal bowel sounds. Absent: distended, tenderness, guarding, rebound, rigid Extremities exam: Present: normal inspection, full ROM, normal capillary refill, other (Left posterior calf ecchymosis extending from the lateral malleolus to the proximal posterior calf below the popliteal region.). Absent: tenderness, pedal edema, joint swelling, calf tenderness Neurological exam: Present: alert, oriented X3, CN II-XII intact Skin exam: Present: warm, dry, intact, normal color. Absent: rash Course Vital Signs 01/10/25 01/10/25 21:01 22:05 Temperature 98.1 F Pulse Rate 83 80 Respiratory 20 18 Rate Blood Pressure 214/129 235/135 O2 Sat by Pulse 99 97 Oximetry Medical Decision Making - Medical Decision Making Was pt. sent in by a medical professional or institution (, PA, CHANCELLOR, urgent care, hospital, or [facility]...) When possible be specific @ -No Did you speak to anyone other than the patient for history (EMS, parent, family, police, friend...)? What history was obtained from this source @ -No Did you review nursing and triage notes (agree or disagree)? Why? @ -I reviewed and agree with nursing and triage notes Were old charts reviewed (outside hosp., previous admission, EMS record, old EKG, old radiological studies, urgent care reports/EKG's, [facility] records)? Report findings @ -No old charts were reviewed Differential Diagnosis (chest pain, altered mental status, abdominal pain women, abdominal pain men, vaginal bleeding, weakness, fever, dyspnea, syncope, headache, dizziness, GI bleed, back pain, seizure, CVA, palpatations, mental health, musculoskeletal)? @ -Arterial vascular occlusion, ecchymosis, deep vein thrombosis, superficial thrombophlebitis, this list is not all inclusive EKG interpreted by me (3pts min.). @ -none X-rays interpreted by me (1pt min.). @ -X-ray of the left tibia and fibula and ankle reveals no evidence of acute fracture with postsurgical changes to the knee with arthroplasty and fixation with hardware being intact CT interpreted by me (1pt min.). @ -None done U/S interpreted by me (1pt. min.). @ -Venous duplex ultrasound of the left lower extremity no evidence of DVT, lower extremity edema What testing was considered but not performed or refused? (CT, X-rays, U/S, labs)? Why? @ -None What meds were considered but not given or refused? Why? @ -None Did you discuss the management of the patient with other professionals (professionals i.e. , PA, CHANCELLOR, lab, RT, psych nurse, social problems specialist, precision printing worker, teacher, licensed loan officer, correctional counselor/case manager)? Give summary @ -No Was smoking cessation discussed for >3mins.? @ -No Was critical care preformed (if so, how long)? @ -No Were there social determinants of health that impacted care today? How? (Homelessness, low income, unemployed, alcoholism, drug addiction, transportation, low edu. Level, literacy, decrease access to med. care, snf, re hab)? @ -No Was there de-escalation of care discussed even if they declined (Discuss DNR or withdrawal of care, Hospice)? DNR status @ -No What co-morbidities impacted this encounter? (DM, HTN, Smoking, COPD, CAD, Cancer, CVA, ARF, Chemo, Hep., AIDS, mental health diagnosis, sleep apnea, morbid obesity)? @ -None Was patient admitted / discharged? Hospital course, mention meds given and route, prescriptions, significant lab abnormalities, going to OR and other pertinent info. @ -Discharged. 54-year-old female presenting to Emergency Department complaints of ecchymosis to the posterior calf. Patient is hypertensive on arrival with a blood pressure of 214/129. Patient is asymptomatic denies symptoms of headache, chest pain, difficulty breathing, heart palpitations, visual disturb ances. There is ecchymosis noted to the posterior left calf that is mildly tender to the mid calf. Pedal pulses 2+ and strong. Extremity is warm to the touch, blanchable. Cap refill 1+. Ultrasound imaging and x-rays are unremarkable for evidence of DVT and/or hardware or vascular deformity. Patient is private dose of hydralazine due to hypertension, 20 mg, IM, which blood pressure has responded well to repeat of 200/91. Patient divided with doses of hydrochlorothiazide and sodium pill that she is normally takes at home however states that she has not been taking this medication as she is out of her health insurance. Prescription sent to the pharmacy. Return parameters discussed. Case discussed with Dr. Reis Undiagnosed new problem with uncertain prognosis? @ -No Drug Therapy requiring intensive monitoring for toxicity (Heparin, Nitro, Insulin, Cardizem)? @ -No Were any procedures done? @ -No Diagnosis/symptom? @ -Ecchymosis of posterior calf, hypertension Acute, or Chronic, or Acute on Chronic? @ -Acute Uncomplicated (without systemic symptoms) or Complicated (systemic symptoms)? @ -uncomplicated Side effects of treatment? @ -No Exacerbation, Progression, or Severe Exacerbation? @ -No Poses a threat to life or bodily function? How? (Chest pain, [place], [place], pneumonia, PE, COPD, DKA, ARF, appy, cholecystitis, CVA, Diverticulitis, Homicidal, Suicidal, threat to staff... and all critical care pts) @ -No Disposition Clinical Impression: Hypertension, Superficial bruising of lower leg Disposition: HOME SELF-CARE Condition: Stable Instructions (If sedation given, give patient instructions): Hypertension (ED) Additional Instructions: Please return to the Emergency Department if symptoms worsen or any other concerns. Prescriptions: hydroCHLOROthiazide 12.5 mg PO DAILY #21 cap lisinopriL [Prinivil] 10 mg PO DAILY #21 tab Is patient prescribed a controlled substance at d/c from ED?: No Referrals: Ollie Beltran MD [Primary Care Provider] - 1-2 days Time of Disposition: 23:11
[2025-01-10 22:06] VITALS: BP 235/135; PULSE 80; RESP 18
--- NOTE | 2025-01-10 22:07 | XR ---
EXAMINATION TYPE: XR tibia fibula LT, XR ankle complete LT DATE OF EXAM: 01/10/2025 9:54 PM COMPARISON: None CLINICAL INDICATION: Female, 54 years old with history of posterior calf bruising, hardware placement ; PHH, pain TECHNIQUE: XR tibia fibula LT, XR ankle complete LT; examined in AP and lateral projections. Frontal lateral and oblique views of the ankle. FINDINGS: Total knee arthroplasty changes with hardware intact. Fixation changes to the distal fibula . Hardware appears intact. Degeneration changes of the ankle joint with joint space narrowing and ost eophyte formation. No evidence of any acute osseous pathology. Calcaneal Achilles enthesophyte format ion. The focal degeneration changes of the visualized joints with joint space narrowing and osteophyt e formation. IMPRESSION: 1. No evidence of acute fracture. 2. Postsurgical changes to the knee with arthroplasty and fixation changes to the distal fibula.Hard dooley is intact. 3. Multifocal degeneration changes throughout the joints of the ankle. [facility], , 01/10/2025 10:05 PM
[2025-01-10] MEDS: hydrALAZINE HCL 20 MG/ML 1 ML VIAL IM STA (22:25)
--- NOTE | 2025-01-10 22:34 | US ---
EXAMINATION TYPE: US venous doppler duplex LE LT DATE OF EXAM: 01/10/2025 10:26 PM COMPARISON: XR same day CLINICAL INDICATION: Female, 54 years old with history of posterior calf ecchymosis, pain, r/o clot; pt states bruising and pain in posterior left calf/ ankle. no hx dvt. not on thinners, Pain TECHNIQUE: The lower extremity deep venous system is examined utilizing real time linear array sonog rui with graded compression, color doppler sonography, and spectral doppler. SIDE PERFORMED: Left FINDINGS: VESSELS IMAGED: Common Femoral Vein Deep Femoral Vein Greater Saphenous Vein * Femoral Vein Popliteal Vein Small Saphenous Vein * Proximal Calf Veins (* superficial vessels) Left Leg: appears negative for dvt, Color Doppler imaging shows patency of the vessels. Spectral wav eforms are within normal limits. patients area of concern scanned, edema seen IMPRESSION: 1. No ultrasound evidence for deep venous thrombosis. 2. Lower extremity edema. [facility], , 01/10/2025 10:31 PM
[2025-01-10] MEDS: hydroCHLOROthiazide 12.5 MG CAP PO STA (23:26)
[2025-01-10] MEDS: lisinopriL 10 MG TAB PO STA (23:26)
== END 2025-01-10 23:39 | disposition home or self-care (01) ==
LOC: EC 21:00
DX: S80.12XA Contusion of left lower leg, initial encounter (principal); I10 Essential (primary) hypertension; Z88.8 Allergy status to other drugs, medicaments and biological substances; Z87.891 Personal history of nicotine dependence; X58.XXXA Exposure to other specified factors, initial encounter
CPT/HCPCS: 73590; 73610; 93971; 99284; 96372; J0360